=== PATIENT | male | born 1940 | race Caucasian/White ===

== ENCOUNTER 2020-02-11 11:01 | Inpatient (IN) | payer MEDICARE, OTHER ==
[~2020-02-11] VITALS: Ht 182.9 cm; Wt 132.0 kg
[~2020-02-11 11:01] MED LIST: AMIN30LI PO; ASCO500T21 PO; BLOO-367 IN; CRAN405C PO; DILT60TA19 PO; DOCU-270 PO; ESCI10TA PO; FERR325T28 PO; FLUT16SP2 NS; INSU100I4 SQ; MEMA10TA PO; METO100T PO; MULT1CAP34 PO; OMEP20CA15 PO; OXYB5TAB PO; POTA10TA11 PO; SIMV40TA2 PO; [UNRECOGNIZED DRUG - CODE] PO
--- NOTE | 2020-02-11 11:40 | NUR ---
JAMEE FROM [facility]. TO ER BED 7. PT IS LETHARGIC, RESPONSIVE TO PAIN STIMULI. PT GOES BACK TO SLEEP AFTER WAKING UP. BROUGHT IN FOR ALTERED MENTAL STATUS AND DESAT. UPON RECEIVING PT, HE WAS ALREADY SATTING @ 100% ON A NON REBREATHER MASK. PT WAS TITRATED DOWN TO A SIMPLE FACE MASK @ 8LPM TOLERATING WELL. WAS AT THE BEDSIDE FOR EVAL. ORDERS RECEIVED NOTED AND CARRIED OUT. IV LINE ESTABLISHED ON RFA 18G. BLOOD DRAWN AND SENT TO LAB
--- NOTE | 2020-02-11 11:45 | NUR ---
XRAY AT BEDSIDE
[2020-02-11 12:02] LABS: BASOPHILS % (AUTO) 0.4 % (0.0-2.0); EOSINOPHILS % (AUTO) 0.3 % (0.0-6.0); HEMATOCRIT 39 % (39-51); LYMPHOCYTES # (AUTO) 0.6 /CMM (0.8-4.8); LYMPHOCYTES % (AUTO) 8.3 % (20.0-44.0); MEAN CORPUSCULAR HGB CONC 31 g/dl (31.0-36.0); MEAN CORPUSCULAR VOLUME 102 fL (80-96); MONOCYTES # (AUTO) 0.6 /CMM (0.1-1.30); MONOCYTES % (AUTO) 8.3 % (2.0-12.0); NEUTROPHILS # (AUTO) 5.5 /CMM (1.8-8.9); NEUTROPHILS % (AUTO) 82.7 % (43.0-81.0); PLATELET COUNT (AUTO) 165 /CMM (150-450); RED BLOOD CELL COUNT(AUTO) 3.86 MIL/uL (4.5-6.0); WHITE BLOOD COUNT (AUTO) 6.7 K/uL (4.3-11.0)
[2020-02-11 12:16] LABS: CARBON DIOXIDE 33 mmol/L (21-32); CHLORIDE 104 mmol/L (98-107); CREATININE 1.7 mg/dL (0.6-1.3); GLUCOSE 181 mg/dL (74-106); POTASSIUM 4.4 mmol/L (3.5-5.1); SODIUM SERUM 142 mmol/L (136-145); UREA NITROGEN, BLOOD 50 mg/dL (7-18)
[2020-02-11 12:30] LABS: ALANINE AMINOTRANSFERASE 14 U/L (12-78); ALKALINE PHOSPHATASE 62 U/L (46-116); ASPARTATE AMINOTRANSFERASE 16 U/L (15-37); B-TYPE NATRIURETIC PEPTIDE 4845 PG/ML (0-125); BILIRUBIN,TOTAL 0.2 mg/dL (0.2-1.0); TOTAL PROTEIN, SERUM 7.4 g/dL (6.4-8.2)
--- NOTE | 2020-02-11 12:30 | NUR ---
02 TITRATED TO EFFECT. PT IN ON VIA NC @ 4LPM. SATTING 99%. TOLERATING WELL W/O ANY RESP DISTRESS
[2020-02-11] MEDS ORDERED: FUROSEMIDE 40 MG/4 ML VIAL ONE ×2 (12:43→20:01)
[2020-02-11] MEDS ORDERED: FUROSEMIDE 40 MG/4 ML VIAL IV ONE ×2 (13:00→17:00)
[2020-02-11 13:26] LABS: LYMPHOCYTES % (MANUAL) 10 % (16-48); NEUTROPHILS % (MANUAL) 84 (42-76)
[2020-02-11 13:27] LABS: MONOCYTES % (MANUAL) 6 % (0-11.0)
[2020-02-11] MEDS ORDERED: Z GUARD REMEDY 2 OZ OINT TP PRN (14:30)
[2020-02-11] MEDS ORDERED: HYDROMORPHONE INJ 2 MG/ML DISP.SYRIN IV PRN (14:30)
[2020-02-11] MEDS ORDERED: IPRATROPIUM NEB FS 0.5 MG/2.5 ML AMPUL.NEB NEB PRN (14:30)
[2020-02-11] MEDS ORDERED: DEXTROSE 50%-WATER 50 ML DISP.SYRIN IV PRN (14:30)
[2020-02-11] MEDS ORDERED: ONDANSETRON HCL/PF 4 MG/2 ML VIAL IVP PRN (14:30)
[2020-02-11] MEDS ORDERED: ALBUTEROL FS 2.5 MG/3 ML VIAL.NEB NEB PRN (14:30)
[2020-02-11] MEDS ORDERED: ACETAMINOPHEN 325 MG TABLET PO PRN (14:30)
--- NOTE | 2020-02-11 15:27 | NUR ---
OUMAR EVANS CALLED STILL NO AVAILABLE BEDS. WILL CALL BACK.
--- NOTE | 2020-02-11 16:50 | NUR ---
PT IS AWAKE AND ALERT. VERBALLY RESPONSIVE.
--- NOTE | 2020-02-11 17:10 | NUR ---
ROOM GIVEN 200 TELE
--- NOTE | 2020-02-11 17:26 | NUR ---
REPORT GIVEN TO JOLENE JONES FOR DENIS
--- NOTE | 2020-02-11 18:20 | NUR ---
PT TRANSPORTED TO UNIT ON [facility] WITH EMT AND RN AT BEDSIDE W/ ACLS PROTOCOL. NAD NOTED DURING TRANSPORT.
[2020-02-11 18:35] VITALS: BP 126/69
--- NOTE | 2020-02-11 18:35 | NUR ---
REAL ESTATE LOAN OFFICER NOTES RECEIVED PATIENT FROM EMERGENCY ROOM WITH STABLE VITAL SIGNS. REPORT GIVEN BY [place] FERNÁNDEZ . ALERT ORIENTED X 3. NO ACUTE DISTRESS NOTED. BREATHING UNLABORED. IV ACCESS PATENT AND INTACT, NO REDNESS, NO SWELLING NOTED. ORIENTED TO THE ROOM. NEEDS ATTENDED. SAFETY MEASURES IN PLACE. CALL LIGHT WITHIN REACH. WILL CONTINUE TO MONITOR ACCORDINGLY.PATIENT FOR ADMISSION, WILL ENDORSE TO NIGHT NURSE FOR CONTINUITY OF CARE AND ADMISSION.
[2020-02-11] MEDS: BLOOD SUGAR DIAGNOSTIC 1 EACH STRIP IN SCH ×2 (18:45→22:00)
--- NOTE | 2020-02-11 19:00 | NUR ---
GROCERY CLERK STOCKING NOTES PATIENT IN STABLE CONDITION, ENDORSE TO NIGHT NURSE FOR CONTINUITY OF CARE AND MEDICATION ADMINISTRATION
[2020-02-11] MEDS: DOCUSATE SODIUM 100 MG CAPSULE PO SCH (19:55)
[2020-02-11] MEDS: OXYBUTYNIN CHLORIDE 5 MG TABLET PO SCH (19:55)
[2020-02-11 20:00] VITALS: BP 139/79
--- NOTE | 2020-02-11 20:00 | NUR ---
SLAB POLISHER NOTE URINE EVALUATION INCONTINENCE CARE GIVEN MODERATED AMOUNT OF WET PAD CHANGED. WEIGHT BEFORE WAS 311 LBS AND AFTER 309.11 LBS. LASIX 40 MG IVP GIVEN SCHEDULED VSS PT UNABLE TO USE URINAL. CONTINUE TO MONITOR OUT PUT.
--- NOTE | 2020-02-11 20:02 | NUR ---
DIESEL MECHANIC CONSTRUCTION NOTE ADMITTED PT WHO CAME FORM ER AT 1830. A/O X 2, NO SOB, NO DISTRESS OR DISCOMFORT NOTED DENIES PAIN. ON TELE UNCONTROLLED A FIB HR 130'S. RFA SL #20 SL INTACT AND PATENT. SKIN ASSESSMENT DONE. PICTURES TAKEN AND PLACE THEM IN THE CHART. PT ON 4L VIA N/C O2 SAT 96%. PT IS INCONTINENT. WOUND CONSULT TRIGGERED. HOB ELEVATED. KEPT HIM DRY AND CLEAN. SIDE RAILS UP X 2 AND CALL LIGHT WITHIN REACH. VSS CONTINUE TO MONITOR HIM.
[2020-02-11] MEDS: PROSOURCE / PROSTAT (PYXIS) 30 ML UDC PO SCH (20:03)
[2020-02-11] MEDS: METOPROLOL TARTRATE 50 MG TABLET PO SCH (20:05)
[2020-02-11] MEDS: HEPARIN SODIUM, PORCINE 5000 UNITS/1 ML VIAL SQ SCH (20:06)
[2020-02-11] MEDS ORDERED: INSULIN ASPART/LISPRO 100 UNIT/ML CARTRIDGE SQ SCH (22:00)
[2020-02-11] MEDS ORDERED: SIMVASTATIN 20 MG TABLET PO SCH (22:00)
[2020-02-11] MEDS: ATORVASTATIN 10 MG TABLET PO SCH (23:13)
[2020-02-11] MEDS: DILTIAZEM HCL 30 MG TABLET PO SCH (23:15)
[2020-02-11] MEDS: INSULIN REGULAR, HUMAN 100 UNIT/ML 3 ML VIAL SQ PRN (23:32)
[2020-02-12] VITALS: BP 141/80
--- NOTE | 2020-02-12 00:30 | NUR ---
FOOD AND BEVERAGE ASSOCIATE NOTE URINE OUTPUT PT INCONTINENENCE CARE GIVEN. PT URINATED LARGE AMOUNT THREE PADS WERE SOAKING WET. ALSO BED SHEETS. CHANGED ALL THE LINENS.
[2020-02-12 04:00] VITALS: BP 138/70
--- NOTE | 2020-02-12 04:00 | NUR ---
RN CARDIAC CATH NOTE URINE INCONTINENCE CARE PROVIDED. MEDIUM AMOUNT OF URINE ON PAD NOTED. ON TELE A FIB HR 90 CONTROLLED.
[2020-02-12] MEDS: DILTIAZEM HCL 30 MG TABLET PO SCH (05:42)
[2020-02-12] MEDS: BLOOD SUGAR DIAGNOSTIC 1 EACH STRIP IN SCH ×4 (06:08→22:08)
[2020-02-12] MEDS: INSULIN REGULAR, HUMAN 100 UNIT/ML 3 ML VIAL SQ PRN ×3 (06:12→22:06)
--- NOTE | 2020-02-12 06:24 | NUR ---
DUST COLLECTOR OPERATOR NOTE PT IN DISTRESS OR DISCOMFORT NOTED. DENIES PAIN. ON TELE REMAIN A FIB CONTROLLED HR 88. SL IN RFA #20 INTACT AND PATENT. KEPT HIM DRY AND CLEAN. REPOSITION HIM Q2H, ALL NEEDS ATTENDED. WILL ENDORSE TO DAY SHIFT NURSE FOR CONTINUE TO CARE. Addendum: 02/12/20 at 2148 by ZAIN NAVAS RN PT IN NO DISTRESS DISCOMFORT NOTED.
[2020-02-12 06:50] LABS: BASOPHILS % (AUTO) 0.4 % (0.0-2.0); EOSINOPHILS % (AUTO) 1.3 % (0.0-6.0); HEMATOCRIT 39 % (39-51); HEMOGLOBIN 12.1 g/dL (13.5-17.5); LYMPHOCYTES # (AUTO) 0.7 /CMM (0.8-4.8); LYMPHOCYTES % (AUTO) 11.9 % (20.0-44.0); MEAN CORPUSCULAR HGB CONC 31 g/dl (31.0-36.0); MEAN CORPUSCULAR VOLUME 100 fL (80-96); MONOCYTES # (AUTO) 0.7 /CMM (0.1-1.30); MONOCYTES % (AUTO) 12.1 % (2.0-12.0); NEUTROPHILS # (AUTO) 4.2 /CMM (1.8-8.9); NEUTROPHILS % (AUTO) 74.3 % (43.0-81.0); PLATELET COUNT (AUTO) 177 /CMM (150-450); RED BLOOD CELL COUNT(AUTO) 3.88 MIL/uL (4.5-6.0); WHITE BLOOD COUNT (AUTO) 5.6 K/uL (4.3-11.0)
[2020-02-12 07:32] LABS: ALANINE AMINOTRANSFERASE 11 U/L (12-78); ALKALINE PHOSPHATASE 61 U/L (46-116); ASPARTATE AMINOTRANSFERASE 11 U/L (15-37); BILIRUBIN,TOTAL 0.2 mg/dL (0.2-1.0); CHLORIDE 104 mmol/L (98-107); CREATININE 1.6 mg/dL (0.6-1.3); GLUCOSE 134 mg/dL (74-106); MAGNESIUM 2.4 mg/dL (1.8-2.4); POTASSIUM 3.8 mmol/L (3.5-5.1); SODIUM SERUM 144 mmol/L (136-145); TOTAL PROTEIN, SERUM 7.3 g/dL (6.4-8.2); UREA NITROGEN, BLOOD 51 mg/dL (7-18)
[2020-02-12 07:35] LABS: CHOLESTEROL 146 mg/dL (<200); HDL CHOLESTEROL 45 mg/dL (40-60); LDL 79 mg/dL (0-99); TRIGLYCERIDES 108 mg/dL (30-150)
[2020-02-12 07:37] LABS: IRON, SERUM 53 ug/dl (50-175); TOTAL IRON BINDING CAPACITY 215 ug/dl (250-450)
--- NOTE | 2020-02-12 07:37 | NUR ---
HEALTH COACH OPENING NOTES RECEIVED PATIENT IN BED, ASLEEP. PATIENT ON OXYGEN THERAPY AT THIS TIME AT 4LPM VIA NASAL CANULA; BREATHING EVEN AND UNLABORED; NO SOB NOTICED AT THIS TIME. NOS/S OF PAIN SUCH FACIAL GRIMACING, GUARDING OR MOANING. RFA G#20 PRESENT AND INTACT. SAFETY PRECAUTIONS IN PLACE; BED IN LOW POSITION AND LOCKED, RAILS UP X2, CALL LIGHT WITHIN REACH. WILL CONTINUE TO MONITOR PATIENT.
[2020-02-12 07:39] LABS: CARBON DIOXIDE 32 mmol/L (21-32)
[2020-02-12 08:00] VITALS: BP 131/70
[2020-02-12] MEDS: DOCUSATE SODIUM 100 MG CAPSULE PO SCH ×2 (08:37→17:41)
[2020-02-12] MEDS: OXYBUTYNIN CHLORIDE 5 MG TABLET PO SCH (08:37)
[2020-02-12] MEDS: MULTIVITAMINS,THERAGRAN 1 UDTAB TABLET PO SCH (08:37)
[2020-02-12] MEDS: PANTOPRAZOLE 40 MG TABLET.DR PO SCH (08:38)
[2020-02-12] MEDS: ASCORBIC ACID 500 MG TABLET PO SCH (08:38)
[2020-02-12] MEDS: METOPROLOL TARTRATE 50 MG TABLET PO SCH ×2 (08:38→22:08)
[2020-02-12] MEDS: HEPARIN SODIUM, PORCINE 5000 UNITS/1 ML VIAL SQ SCH (08:39)
[2020-02-12] MEDS: PROSOURCE / PROSTAT (PYXIS) 30 ML UDC PO SCH ×3 (08:40→17:41)
[2020-02-12] MEDS: FERROUS SULFATE (325 MG) 325 MG/TAB TABLET PO SCH (08:41)
[2020-02-12] MEDS ORDERED: HYOSCYAMINE PO SCH (09:00)
[2020-02-12] MEDS ORDERED: METHENAMINE PO SCH (09:00)
[2020-02-12] MEDS ORDERED: PHENYL SALICYLATE PO SCH (09:00)
[2020-02-12] MEDS ORDERED: ESCITALOPRAM OXALATE (10 MG) 10 MG TABLET PO SCH (09:00)
[2020-02-12] MEDS ORDERED: MEMANTINE HCL 5 MG TABLET PO SCH (09:00)
[2020-02-12] MEDS ORDERED: [UNRECOGNIZED DRUG - OTHER] PO SCH (09:00)
[2020-02-12] MEDS ORDERED: SODIUM PHOSPHATE PO SCH (09:00)
--- NOTE | 2020-02-12 09:27 | NUR ---
WOUND CARE CONSULT: REVIEWED CHART, NURSING DOCUMENTATION AND PHOTOS WHICH INDICATE RASHES TO BUTTOCKS AND ABDOMINAL/GROIN FOLDS AND WOUND TO LEFT LOWER LEG, PRESENT ON ADMISSION. RECOMMEND DPM CONSULT. RECOMMENDATIONS MADE FOR SKIN PROTECTION. DISCUSSED WITH NURSING STAFF. PT [facility] B[facility]. IN AGREEMENT WITH PLAN OF CARE. Addendum: 02/12/20 at 0932 by REX GONG WNDNU RECOMMEND SURGICAL AND DPM CONSULTS. DR HOFF AND DR PERALTA NOTIFIED OF CONSULT REQUESTS.
[2020-02-12] MEDS ORDERED: ZINC1CAP3 PO (09:47)
[2020-02-12] MEDS ORDERED: ACET325T53 PO (09:47)
[2020-02-12] MEDS ORDERED: DILT240C88 PO (09:47)
[2020-02-12] MEDS ORDERED: TEMA30CA PO (09:47)
[2020-02-12] MEDS ORDERED: TRAM50TA2 PO (09:47)
[2020-02-12] MEDS ORDERED: POLY17PO4 PO (09:47)
[2020-02-12] MEDS ORDERED: OXYB10TA30 PO (09:47)
[2020-02-12] MEDS ORDERED: CYCL30DR EACHEYE (09:47)
[2020-02-12] MEDS ORDERED: VITA400C71 PO (09:47)
[2020-02-12] MEDS ORDERED: ACET250T3 PO (09:47)
[2020-02-12] MEDS ORDERED: DICL100G16 TP (09:47)
[2020-02-12] MEDS ORDERED: SENN-261 PO (09:47)
[2020-02-12] MEDS ORDERED: ACET-73 PO ×2 (09:47)
[2020-02-12] MEDS ORDERED: CALC-883 PO (10:05)
[2020-02-12] MEDS ORDERED: GEMF600T5 PO (10:05)
[2020-02-12] MEDS ORDERED: LACT1CAP89 PO (10:05)
[2020-02-12] MEDS ORDERED: METO-295 PO (10:05)
[2020-02-12] MEDS ORDERED: ALBU2.5V38 IH (10:05)
[2020-02-12] MEDS ORDERED: BUME1TAB9 PO (10:05)
[2020-02-12] MEDS ORDERED: LEVO50TA8 PO (10:05)
[2020-02-12] MEDS ORDERED: MELA3TAB41 PO (10:05)
[2020-02-12] MEDS ORDERED: BIOTIN PO (10:05)
[2020-02-12] MEDS ORDERED: GUAIFENESIN PO (10:05)
[2020-02-12] MEDS ORDERED: INSU100V42 (10:05)
[2020-02-12] MEDS ORDERED: OMEG1CAP PO (10:05)
[2020-02-12] MEDS ORDERED: KETO5DRO83 EACHEYE (10:05)
[2020-02-12] MEDS ORDERED: MAGN296S72 PO (10:05)
[2020-02-12 12:00] VITALS: BP 143/72
--- NOTE | 2020-02-12 12:08 | NUR ---
TRANSPORTATION EQUIPMENT PAINTER NOTES NO INSULIN COVERAGE GIVEN. PATIENT REFUSES LUNCH. WILL REASSESS LATER.
--- NOTE | 2020-02-12 12:45 | NUR ---
LEASE EXAMINER NOTES RECEIVED CALL FROM LAB REGARDING COVID-19. PATIENT IS NEGATIVE. MD NOTIFIED.
--- NOTE | 2020-02-12 15:09 | NUR ---
TRANSIT OPERATIONS SUPERVISORMEDICAL REIMBURSEMENT MANAGER NOTES PER MD OK TO TRANSFER TO MS3. PATIENT TRANSFERRED AND REPORT GIVEN TO JOLENE SALAS
--- NOTE | 2020-02-12 15:10 | NUR ---
PIPE LINE MAINTENANCE SUPERVISOR NOTES PATIENT RECEIVED FROM DLAILA FERNÁNDEZ FROM MED SURG 2, TRANSFERRED VIA BED AND ACLS PROTOCOLS. PATIENT ALERT AND ORIENTED X 1-2. ON NASAL CANNULA, 4 LITERS WITH HUMIDIFIER. ON WORK MANAGER, SINUS RHYTHM 90'S. SAFETY PRECAUTIONS IMPLEMENTED WITH BED LOCKED, BED IN THE LOWEST POSITION, BILATERAL SIDE RAILS UP, BED ALARM ON, AND CALL LIGHT WITHIN EASY REACH OF THE PATIENT. WILL CONTINUE PLAN OF CARE AND CONTINUE TO MONITOR PATIENT.
[2020-02-12 16:25] VITALS: BP 129/70
--- NOTE | 2020-02-12 16:45 | NUR ---
OUTDOOR ADVENTURE GUIDES NOTES PATIENT POSITIVE FOR DVT ON RIGHT COMMON FEMORAL AND PROXIMAL RIGHT SUPERFICIAL FEMORAL VEINS, INFORMED CAMMIE, HOSPITALIST, ORDERED XARELTO 15 mg PO, BID FOR 21 DAYS. ALSO INFORMED HOSPITALIST, MRSA IN NARES, ORDERED BACTROBAN, BID. WILL CARRY OUT ORDERS AND CONTINUE TO MONITOR PATIENT.
[2020-02-12] MEDS ORDERED: RIVAROXABAN 15 MG TABLET PO SCH (17:00)
[2020-02-12] MEDS: APIXABAN 5 MG TABLET PO SCH (18:47)
--- NOTE | 2020-02-12 19:10 | NUR ---
LAMINATING MACHINE OPERATOR NOTES PATIENT ALERT AND ORIENTED X 1-2. ON NASAL CANNULA, 4 LITERS WITH HUMIDIFIER. ON LAUNDRY OPERATOR FINISHING, A-FIB 100. PATIENT IV ACCESS INTACT AND PATENT SALINE LOCK. PATIENT PRESENTING WITH NO PAIN OR DISCOMFORT AT THIS TIME. MET ALL OF PATIENT'S NEEDS. SKIN KEPT CLEAN, DRY TO TOUCH. SAFETY PRECAUTIONS IMPLEMENTED WITH BED LOCKED, BED IN THE LOWEST POSITION, BILATERAL SIDE RAILS UP, BED ALARM ON, AND CALL LIGHT WITHIN EASY REACH OF THE PATIENT. WILL ENDORSE PLAN OF CARE TO UPCOMING RN.
[2020-02-12 20:36] VITALS: BP 130/81
[2020-02-12] MEDS: ATORVASTATIN 10 MG TABLET PO SCH (22:08)
[2020-02-12] MEDS: MUPIROCIN OINT 2% 22 GM TUBE NS SCH (22:09)
[2020-02-13] VITALS: BP 127/72
[2020-02-13 04:20] VITALS: BP 138/69
[2020-02-13 06:23] LABS: BASOPHILS % (AUTO) 0.4 % (0.0-2.0); EOSINOPHILS % (AUTO) 2.1 % (0.0-6.0); HEMATOCRIT 37 % (39-51); HEMOGLOBIN 11.8 g/dL (13.5-17.5); LYMPHOCYTES # (AUTO) 0.8 /CMM (0.8-4.8); LYMPHOCYTES % (AUTO) 15.3 % (20.0-44.0); MEAN CORPUSCULAR HGB CONC 32 g/dl (31.0-36.0); MEAN CORPUSCULAR VOLUME 99 fL (80-96); MONOCYTES # (AUTO) 0.6 /CMM (0.1-1.30); MONOCYTES % (AUTO) 11.5 % (2.0-12.0); NEUTROPHILS # (AUTO) 3.6 /CMM (1.8-8.9); NEUTROPHILS % (AUTO) 70.7 % (43.0-81.0); PLATELET COUNT (AUTO) 168 /CMM (150-450); RED BLOOD CELL COUNT(AUTO) 3.79 MIL/uL (4.5-6.0); WHITE BLOOD COUNT (AUTO) 5.1 K/uL (4.3-11.0)
[2020-02-13] MEDS: INSULIN REGULAR, HUMAN 100 UNIT/ML 3 ML VIAL SQ PRN ×2 (06:57→22:04)
[2020-02-13 07:01] LABS: CALCIUM, SERUM 9.6 mg/dL (8.5-10.1); CARBON DIOXIDE 36 mmol/L (21-32); CHLORIDE 103 mmol/L (98-107); CREATININE 1.5 mg/dL (0.6-1.3); GLUCOSE 173 mg/dL (74-106); POTASSIUM 3.8 mmol/L (3.5-5.1); SODIUM SERUM 142 mmol/L (136-145); UREA NITROGEN, BLOOD 60 mg/dL (7-18)
--- NOTE | 2020-02-13 07:30 | NUR ---
TRANSACTION PROCESSOR CLOSING NOTES PATIENT ALERT AND ORIENTED X 1-2 LETHARGIC. ON NASAL CANNULA, 4 LITERS WITH HUMIDIFIER. ON RN NEONATAL ICU, A-FIB 100S. PATIENT IV ACCESS INTACT AND PATENT SALINE LOCK. SAFETY PRECAUTIONS IN PLACE WITH BED LOCKED, BED IN THE LOWEST POSITION, BILATERAL SIDE RAILS UP, BED ALARM ON, AND CALL LIGHT WITHIN EASY REACH OF THE PATIENT. WILL ENDORSE PLAN OF CARE TO UPCOMING RN.
[2020-02-13] MEDS: BLOOD SUGAR DIAGNOSTIC 1 EACH STRIP IN SCH ×4 (07:56→21:50)
[2020-02-13 08:23] VITALS: BP 164/86
[2020-02-13] MEDS: APIXABAN 5 MG TABLET PO SCH ×2 (09:00→17:00)
[2020-02-13] MEDS: ASCORBIC ACID 500 MG TABLET PO SCH (09:00)
[2020-02-13] MEDS: MUPIROCIN OINT 2% 22 GM TUBE NS SCH ×2 (09:00→22:16)
[2020-02-13] MEDS: PROSOURCE / PROSTAT (PYXIS) 30 ML UDC PO SCH ×3 (09:00→17:19)
[2020-02-13] MEDS: METOPROLOL TARTRATE 50 MG TABLET PO SCH ×2 (09:00→21:50)
[2020-02-13] MEDS: PANTOPRAZOLE 40 MG TABLET.DR PO SCH (09:00)
[2020-02-13] MEDS: MULTIVITAMINS,THERAGRAN 1 UDTAB TABLET PO SCH (09:00)
[2020-02-13] MEDS: HYDROGEL DRESSING 90 GM TUBE TP SCH (09:00)
[2020-02-13] MEDS: FUROSEMIDE 40 MG/4 ML VIAL IV SCH ×2 (09:00→17:19)
[2020-02-13] MEDS: FERROUS SULFATE (325 MG) 325 MG/TAB TABLET PO SCH (09:00)
[2020-02-13] MEDS: DOCUSATE SODIUM 100 MG CAPSULE PO SCH ×2 (09:00→17:19)
--- NOTE | 2020-02-13 10:41 | NUR ---
PATIENT IS IN BED RESTING. PATIENT IS ALERT AND ORIENTED X2. PATIENT DOES NOT DISPLAY SIGNS AND SYMPTOMS OF PAIN, DISTRESS, OR SHORTNESS OF BREATH. PATIENT IS ON 4L OF O2 VIA NASAL CANNULA. AM IN CARE NEEDS MET. BED IN LOW POSITION. CALL LIGHT IN REACH. WILL CONTINUE TO MONITOR PATIENT THROUGHOUT SHIFT.
[2020-02-13 15:41] VITALS: BP 143/77
--- NOTE | 2020-02-13 18:45 | NUR ---
Patient is in bed sleeping. All care needs met. No signs of pain, distress, or shortness of breath. Bed in low position. Call light in reach. Will give report to night nurse.
--- NOTE | 2020-02-13 20:05 | NUR ---
per report pt was coughing with thin liquids speech eval ordered per protocol to evaluate patient will cont standard aspiration precautions; will thicken thin liquids in meantiime as pt tolerates.
[2020-02-13 20:45] VITALS: BP 149/86
[2020-02-13 20:48] VITALS: BP 149/86
[2020-02-13] MEDS: ATORVASTATIN 10 MG TABLET PO SCH (21:49)
--- NOTE | 2020-02-13 22:20 | NUR ---
PROCEDURE CONSENT OBTAINED FOR SERIAL DEBRIDEMENT OF LEFT LEG FROM DAUGHTER. PROCEDURE CONSENT OBTAINED FROM DAUGHTER LONG CONTRERAS FOR SERIAL EXCISIONAL DEBRIDEMENT OF LEFT LOWER LEG WOUND WITH CONNIE UMANZOR. PLACED ON THE CHART. TELEPHONE CONSENT WITNESSED WITH MYSELF AND JENNA FERNÁNDEZ.
[2020-02-14 00:16] VITALS: BP 137/73
[2020-02-14 04:19] VITALS: BP 149/83
[2020-02-14] MEDS: BLOOD SUGAR DIAGNOSTIC 1 EACH STRIP IN SCH ×4 (06:38→21:53)
[2020-02-14] MEDS: INSULIN REGULAR, HUMAN 100 UNIT/ML 3 ML VIAL SQ PRN ×3 (06:40→21:55)
[2020-02-14 06:54] LABS: BASOPHILS % (AUTO) 0.2 % (0.0-2.0); EOSINOPHILS % (AUTO) 2.4 % (0.0-6.0); HEMATOCRIT 39 % (39-51); HEMOGLOBIN 12.3 g/dL (13.5-17.5); LYMPHOCYTES # (AUTO) 0.6 /CMM (0.8-4.8); LYMPHOCYTES % (AUTO) 10.9 % (20.0-44.0); MEAN CORPUSCULAR HGB CONC 32 g/dl (31.0-36.0); MEAN CORPUSCULAR VOLUME 98 fL (80-96); MONOCYTES # (AUTO) 0.8 /CMM (0.1-1.30); MONOCYTES % (AUTO) 14.8 % (2.0-12.0); NEUTROPHILS % (AUTO) 71.7 % (43.0-81.0); PLATELET COUNT (AUTO) 177 /CMM (150-450); RED BLOOD CELL COUNT(AUTO) 3.96 MIL/uL (4.5-6.0); WHITE BLOOD COUNT (AUTO) 5.6 K/uL (4.3-11.0)
[2020-02-14 07:10] LABS: B-TYPE NATRIURETIC PEPTIDE 8779 PG/ML (0-125); CARBON DIOXIDE 38 mmol/L (21-32); CHLORIDE 102 mmol/L (98-107); CREATININE 1.6 mg/dL (0.6-1.3); GLUCOSE 186 mg/dL (74-106); MAGNESIUM 2.3 mg/dL (1.8-2.4); PHOSPHORUS 3.7 mg/dL (2.5-4.9); POTASSIUM 3.7 mmol/L (3.5-5.1); SODIUM SERUM 143 mmol/L (136-145); UREA NITROGEN, BLOOD 64 mg/dL (7-18)
--- NOTE | 2020-02-14 07:23 | NUR ---
closing note pm noc nurse Patient is in bed with eyes closed. in No signs of pain, distress, or shortness of breath. Bed in low position. Call light in reach. will endorse to oncoming shift. plan is to have serrial debridement of left leg wound with dr. evans. pt still is lethargic when interacting. alert and oriented x2. call ligh in place bed down locked srx3 bed alarm active. pt had 2 voids with 1 small bm.
--- NOTE | 2020-02-14 07:30 | NUR ---
MS/RN OPENING NOTE PATIENT RECEIVED FROM PLAYGROUND MONITOR PATIENT IS A/O X2 LAYING IN BED. PATIENT VS WITHIN NORMAL RANGE. PATIENT IS ON 4L/MIN OXYGEN VIA NASAL CANNULA TOLERATING WELL. NO ACUTE DISTRESS NOTED. PATIENT VERBALIZES 0/10 PAIN. PATIENT WILL BE TURNED AND REPOSITIONED EVERY 2-3 HOURS THROUGHOUT THE DAY. SAFETY MEASURES IN PLACE, BED IN LOWEST POSITION/LOCKED, CALL LIGHT WITHIN REACH. WILL CONTINUE TO MONITOR AND ENSURE SAFETY.
[2020-02-14 08:00] VITALS: BP 149/74
[2020-02-14] MEDS: FUROSEMIDE 40 MG/4 ML VIAL IV SCH ×2 (08:48→16:37)
[2020-02-14] MEDS: DOCUSATE SODIUM 100 MG CAPSULE PO SCH ×2 (08:48→16:37)
[2020-02-14] MEDS: ASCORBIC ACID 500 MG TABLET PO SCH (08:49)
[2020-02-14] MEDS: MULTIVITAMINS,THERAGRAN 1 UDTAB TABLET PO SCH (08:50)
[2020-02-14] MEDS: PANTOPRAZOLE 40 MG TABLET.DR PO SCH (08:50)
[2020-02-14] MEDS: METOPROLOL TARTRATE 50 MG TABLET PO SCH ×2 (08:50→20:37)
[2020-02-14] MEDS: FERROUS SULFATE (325 MG) 325 MG/TAB TABLET PO SCH (08:50)
[2020-02-14] MEDS: HYDROGEL DRESSING 90 GM TUBE TP SCH (08:53)
[2020-02-14] MEDS: PROSOURCE / PROSTAT (PYXIS) 30 ML UDC PO SCH ×3 (08:53→16:39)
[2020-02-14] MEDS: MUPIROCIN OINT 2% 22 GM TUBE NS SCH ×2 (08:54→20:39)
[2020-02-14] MEDS: APIXABAN 5 MG TABLET PO SCH ×2 (08:55→16:38)
--- NOTE | 2020-02-14 10:49 | NUR ---
MS/RN S/B DR. MASSEY S/B DR. SPIVEY AWAITING ORDERS.
--- NOTE | 2020-02-14 11:30 | NUR ---
MS/RN BLOOD SUGAR BLOOD SUGAR 157, NO INSULIN COVERAGE GIVEN PATIENT HAS NOT EATING.
--- NOTE | 2020-02-14 11:36 | NUR ---
MS/RN S/B DR. PERALTA S/B DR. PERALTA. DID WOUND DEBRIDEMENT OF LLE. COVERED WITH HYDROGEL AND MEPILEX.
[2020-02-14 12:00] VITALS: BP 125/78
[2020-02-14 16:00] VITALS: BP 124/63
--- NOTE | 2020-02-14 19:10 | NUR ---
MS/RN CLOSING NOTE PATIENT IS A/O X2. VS WITHIN NORMAL RANGE. PATIENT ON 4L OF OXYGEN VIA NASAL CANNULA, TOLERATING WELL. NO ACUTE DISTRESS NOTED. ALL NEEDS MET DURING THE DAY.SAFETY PRECAUTIONS IN PLACE. BED IN LOWEST POSITION/LOCKED, CALL LIGHT WITHIN REACH. WILL ENDORSE TO PRESCHOOL TEACHER AIDE NURSE.
--- NOTE | 2020-02-14 19:45 | NUR ---
MS RN NOTES RECEIVED PATIENT ALERT ORIENTED X2. BREATHING EVEN AND UNLABORED PATIENT ON 4L OF OXYGEN VIA NASAL CANNULA, TOLERATING WELL. NO SIGNS OF ACUTE RESPIRATORY DISTRESS NOTED.SAFETY PRECAUTIONS IN PLACE. BED IN LOWEST POSITION/LOCKED, CALL LIGHT WITHIN EASY REACH. ALL NEEDS ANTICIPATED. WILL CONTINUE TO MONITOR ACCORDINGLY.
[2020-02-14 20:15] VITALS: BP 112/67
[2020-02-14] MEDS: ATORVASTATIN 10 MG TABLET PO SCH (22:19)
[2020-02-15] VITALS: BP 118/64
[2020-02-15 04:00] VITALS: BP 132/74
--- NOTE | 2020-02-15 06:26 | NUR ---
ACCESS SPECIALIST CLOSING NOTES ALL NEEDS ATTENDED AND ME. PATIENT ALERT AND ORIENTED X 1-2 LETHARGIC. ON NASAL CANNULA, 4 LITERS WITH HUMIDIFIER. ON GAUGE MACHINE OPERATOR, A-FIB 107. IV ACCESS INTACT AND PATENT SALINE LOCK. SAFETY MEASURES IN PLACE WITH BED LOCKED, BED IN THE LOWEST POSITION, BILATERAL SIDE RAILS UP, BED ALARM ON, AND CALL LIGHT WITHIN EASY REACH OF THE PATIENT. ASPIRATION PRECAUTION EMPHASIZED.WILL ENDORSE TO AM NURSE FOR CONTINUITY OF CARE.
[2020-02-15 06:43] LABS: CHLORIDE 101 mmol/L (98-107); CREATININE 1.5 mg/dL (0.6-1.3); GLUCOSE 160 mg/dL (74-106); POTASSIUM 3.6 mmol/L (3.5-5.1); SODIUM SERUM 145 mmol/L (136-145); UREA NITROGEN, BLOOD 62 mg/dL (7-18)
[2020-02-15] MEDS: BLOOD SUGAR DIAGNOSTIC 1 EACH STRIP IN SCH ×4 (06:44→21:24)
[2020-02-15] MEDS: INSULIN REGULAR, HUMAN 100 UNIT/ML 3 ML VIAL SQ PRN ×4 (06:45→21:43)
[2020-02-15 06:46] LABS: CARBON DIOXIDE 43 mmol/L (21-32)
--- NOTE | 2020-02-15 07:01 | NUR ---
RN NOTES CO2 RESULT IS 43 PER ALEXANDER CALDERON MD. JERILYN FOREMAN NP. AWAITING FOR ANY ORDERS. WILL ENDORSE TO AM NURSE.
--- NOTE | 2020-02-15 07:31 | NUR ---
CANT GANG SAWYER OPENING NOTE PATIENT IN BED RESTING COMFORTABLY. PATIENT IN NO ACUTE DISTRESS. NO SOB NOTED. PATIENT BREATHING IS EVEN AND UNLABORED. PATIENT ON CARDIAC MONITORING READING AFIB HR 110. PATIENT BED ALARM IS ON. SAFETY PRECAUTIONS IN PLACE. PATIENT BED IS LOCKED AND IN LOWEST POSITION. CALL LIGHT WITHIN REACH. WILL CONTINUE TO MONITOR.
[2020-02-15 08:00] VITALS: BP 126/75
[2020-02-15] MEDS: APIXABAN 5 MG TABLET PO SCH ×2 (08:47→16:41)
[2020-02-15] MEDS: MUPIROCIN OINT 2% 22 GM TUBE NS SCH ×2 (08:48→21:23)
[2020-02-15] MEDS: PROSOURCE / PROSTAT (PYXIS) 30 ML UDC PO SCH ×3 (08:48→16:42)
[2020-02-15] MEDS: HYDROGEL DRESSING 90 GM TUBE TP SCH (08:49)
[2020-02-15] MEDS: METOPROLOL TARTRATE 50 MG TABLET PO SCH ×2 (08:50→21:08)
[2020-02-15] MEDS: FERROUS SULFATE (325 MG) 325 MG/TAB TABLET PO SCH (08:50)
[2020-02-15] MEDS: FUROSEMIDE 40 MG/4 ML VIAL IV SCH (08:50)
[2020-02-15] MEDS: DOCUSATE SODIUM 100 MG CAPSULE PO SCH ×2 (08:50→16:40)
[2020-02-15] MEDS: MULTIVITAMINS,THERAGRAN 1 UDTAB TABLET PO SCH (08:50)
[2020-02-15] MEDS: ASCORBIC ACID 500 MG TABLET PO SCH (08:51)
[2020-02-15] MEDS: PANTOPRAZOLE 40 MG TABLET.DR PO SCH (08:51)
[2020-02-15 15:37] LABS: CREATININE, URINE 24.9 MG/DL (30.0-125.0); URINE TOTAL PROTEIN 14.7 mg/dL (0-11.9)
[2020-02-15 15:39] LABS: APPEARANCE,URINE CLEAR (CLEAR); BILIRUBIN,URINE NEGATIVE (NEGATIVE); BLOOD, URINE SMALL Ery/uL (NEGATIVE); COLOR,URINE YELLOW (YELLOW); KETONES,URINE NEGATIVE (NEGATIVE); LEUKOCYTE ESTERASE ,URINE TRACE (NEGATIVE); NITRITE, URINE NEGATIVE (NEGATIVE); PH,URINE 5.5 (5.0-8.0); PROTEIN,URINE NEGATIVE (NEGATIVE); UGLUCOSE NEGATIVE (NEGATIVE); UROBILINOGEN,URINE 0.2 EU/dL (0.2)
[2020-02-15 16:00] VITALS: BP 136/83
[2020-02-15 16:27] LABS: BACTERIA,URINE 1+ /HPF (None Seen); SQUAMOUS EPITHELIAL CELL,UR 0-2 /HPF (None Seen)
[2020-02-15 16:43] LABS: EOSINOPHIL,URINE None Seen
--- NOTE | 2020-02-15 18:46 | NUR ---
CARDIAC NURSE SPECIALIST CLOSING NOTE PATIENT IN BED RESTING COMFORTABLY. PATIENT IN NO ACUTE DISTRESS. NO SOB NOTED. PATIENT BREATHING IS EVEN AND UNLABORED. PATIENT ON CARDIAC MONITORING READING AFIB HR 104. PATIENT BED ALARM IS ON. SAFETY PRECAUTIONS IN PLACE. PATIENT KEPT CLEAN, DRY, AND COMFORTABLE THROUGHOUT SHIFT. NEEDS AND CONCERNS ADDRESSED. PATIENT BED IS LOCKED AND IN LOWEST POSITION. CALL LIGHT WITHIN REACH. WILL ENDORSE CARE TO PM SHIFT FOR DENIS.
--- NOTE | 2020-02-15 20:00 | NUR ---
Opening Notes: Report received from am nurse. Patient alert, awake, and oriented x 2. Patient able to make needs known. No s/s of distress or discomfort noted. No c/o pain. No SOB. VS WNL. Patient assisted with turning and repositioning. HOB elevated for aspiration precaution. Needs anticipated. Fall precautions observed. Call light within reach.
[2020-02-15 20:07] VITALS: BP 149/86
[2020-02-15] MEDS: ATORVASTATIN 10 MG TABLET PO SCH (21:07)
[2020-02-15 23:44] VITALS: BP 155/58
[2020-02-16 00:51] VITALS: BP 146/70
[2020-02-16 05:00] VITALS: BP 136/70
[2020-02-16] MEDS: BLOOD SUGAR DIAGNOSTIC 1 EACH STRIP IN SCH ×2 (05:57→12:05)
--- NOTE | 2020-02-16 06:28 | NUR ---
Closing Notes: Patient alert, and oriented x2. Eyes closed, resting comfortably, on 4L O2 via NC as ordered. No s/s of distress, or discomfort noted, no c/o pain, no facial grimacing or moaning noted. VS WNL. Patient assisted with ADLs, turning and repositioning every 2 hours. HOB elevated for aspiration precautions, tolerated well. Patient kept clean and dry. Linens changed, good pericare provided. Needs anticipated and attended. Bed locked and in lowest position. Call light within easy reach.
[2020-02-16] MEDS: INSULIN REGULAR, HUMAN 100 UNIT/ML 3 ML VIAL SQ PRN ×2 (06:47→12:06)
--- NOTE | 2020-02-16 07:25 | NUR ---
POLICY WRITER NOTES RECEIVED PATIENT IN BED ASLEEP, AROUSABLE TO VERBAL AND TACTILE STIMULI. HOB ELEVATED. ON O2 AT 4L/MIN VIA NC RADHA WELL WITHOUT SOB NOTED. ALERT AND ORIENTED X2. ON TELE MONITORING SR: 90. RFA SL # 20 INTACT AND PATENT. DENIES ANY C/O PAIN NOR DISCOMFORT AT THIS TIME. BED IN LOWEST POSITION, LOCKED. BED ALARM ON. CALL LIGHT WITHIN REACH. ABLE TO VERBALIZE NEEDS.
[2020-02-16 08:00] VITALS: BP 139/68
[2020-02-16 08:08] LABS: CHLORIDE 100 mmol/L (98-107); CREATININE 1.2 mg/dL (0.6-1.3); GLUCOSE 179 mg/dL (74-106); POTASSIUM 3.4 mmol/L (3.5-5.1); SODIUM SERUM 144 mmol/L (136-145); UREA NITROGEN, BLOOD 56 mg/dL (7-18)
[2020-02-16 08:12] LABS: CARBON DIOXIDE 45 mmol/L (21-32)
[2020-02-16] MEDS: MUPIROCIN OINT 2% 22 GM TUBE NS SCH (08:48)
[2020-02-16] MEDS: HYDROGEL DRESSING 90 GM TUBE TP SCH (08:49)
[2020-02-16 08:51] VITALS: BP 139/68
[2020-02-16] MEDS: ASCORBIC ACID 500 MG TABLET PO SCH (08:51)
[2020-02-16] MEDS: METOPROLOL TARTRATE 50 MG TABLET PO SCH (08:51)
[2020-02-16] MEDS: FERROUS SULFATE (325 MG) 325 MG/TAB TABLET PO SCH (08:51)
[2020-02-16] MEDS: PANTOPRAZOLE 40 MG TABLET.DR PO SCH (08:51)
[2020-02-16] MEDS: DOCUSATE SODIUM 100 MG CAPSULE PO SCH (08:51)
[2020-02-16] MEDS: APIXABAN 5 MG TABLET PO SCH (08:52)
[2020-02-16] MEDS: MULTIVITAMINS,THERAGRAN 1 UDTAB TABLET PO SCH (08:54)
[2020-02-16] MEDS: PROSOURCE / PROSTAT (PYXIS) 30 ML UDC PO SCH ×2 (08:54→12:06)
[2020-02-16] MEDS ORDERED: POTASSIUM CHLORIDE 20 MEQ TAB.PRT.SR PO SCH ×2 (10:00)
--- NOTE | 2020-02-16 12:06 | NUR ---
PORTAINER OPERATOR NOTES BS 168MG/DL HELD INSULIN POOR PO INTAKE.
--- NOTE | 2020-02-16 14:00 | NUR ---
CONCRETE BUSTER OPERATOR NOTES PATIENT REFUSED TO HAVE PICTURES TAKEN PRIOR TO DISCHARGE.
--- NOTE | 2020-02-16 14:10 | NUR ---
PUNCHBOARD ASSEMBLER NOTES PATIENT FOR DISCHARGE. DISCHARGE INSTRUCTIONS GIVEN VIA PHONE AND REPORT GIVEN TO JOSE MARIA AT [facility] ([facility] PATIENT PICKED UP BY AMBULANCE ACCOMPANIED BY 2 EMT. REMAIN ON O2 AT 4L/MIN VIA NC RADHA WELL WITHOUT S/S OF RESPIRATORY DISTRESS. ALERT AND ORIENTED X2. ALL BELONGINGS ACCOUNTED FOR. IV ACCESS CATHETER REMOVED WITH CATHETER TIP INTACT. PATIENT LEFT IN STABLE CONDITION WITHOUT ANY S/S OF ACUTE DISTRESS.
[2020-02-19] MEDS ORDERED: APIXABAN 5 MG TABLET PO SCH (17:00)
== END 2020-02-16 14:10 | DRG 264 ==
LOC: ER 11:01 → TELE2 17:12 → TELE 02-12 15:13
PROVIDERS: ADMIT Nurse Practitioner Acute Care
PROC: 0JBP0ZZ Excision of Left Lower Leg Subcutaneous Tissue and Fascia, Open Approach (ICD-10-PCS; principal; 2020-02-14)
DX: I13.0 Hypertensive heart and chronic kidney disease with heart failure and stage 1 through stage 4 chronic kidney disease, or unspecified chronic kidney disease (principal); I50.33 Acute on chronic diastolic (congestive) heart failure; J96.01 Acute respiratory failure with hypoxia; G93.41 Metabolic encephalopathy; E43 Unspecified severe protein-calorie malnutrition; N17.0 Acute kidney failure with tubular necrosis; D68.69 Other thrombophilia; L97.828 Non-pressure chronic ulcer of other part of left lower leg with other specified severity; I82.411 Acute embolism and thrombosis of right femoral vein; E87.2 Acidosis; K21.9 Gastro-esophageal reflux disease without esophagitis; N31.9 Neuromuscular dysfunction of bladder, unspecified; N18.9 Chronic kidney disease, unspecified; M19.90 Unspecified osteoarthritis, unspecified site; E03.9 Hypothyroidism, unspecified; I48.91 Unspecified atrial fibrillation; J44.9 Chronic obstructive pulmonary disease, unspecified; E66.01 Morbid (severe) obesity due to excess calories; E78.5 Hyperlipidemia, unspecified; G30.9 Alzheimer's disease, unspecified; F02.80 Dementia in other diseases classified elsewhere, unspecified severity, without behavioral disturbance, psychotic disturbance, mood disturbance, and anxiety; Z79.4 Long term (current) use of insulin; Z83.3 Family history of diabetes mellitus; Z87.891 Personal history of nicotine dependence; Z98.84 Bariatric surgery status; E88.09 Other disorders of plasma-protein metabolism, not elsewhere classified; Z68.39 Body mass index [BMI] 39.0-39.9, adult; L98.8 Other specified disorders of the skin and subcutaneous tissue; L89.326 Pressure-induced deep tissue damage of left buttock; I70.248 Atherosclerosis of native arteries of left leg with ulceration of other part of lower leg; E11.51 Type 2 diabetes mellitus with diabetic peripheral angiopathy without gangrene; E11.22 Type 2 diabetes mellitus with diabetic chronic kidney disease
CPT/HCPCS: 36415; 71045-TC; 80048-TC; 80053-TC; 80061-TC; 80076-TC; 81000-TC; 82570-TC; 82962-TC; 83540-TC; 83735-TC; 83880; 84100-TC; 84155-TC; 84300-TC; 84443-TC; 84484-TC; 85025-TC; 85610-TC; 85730-TC; 87081-TC; 92521; 92526; 93307-TC; 93970-TC; A4349; A6248; G0378; J1644; J1815; J1940; U0003

== ENCOUNTER 2020-03-13 07:57 | Inpatient (IN) | payer MEDICARE, OTHER ==
[~2020-03-13] VITALS: Ht 172.7 cm; Wt 138.6 kg
[2020-03-13] VITALS (28 sets, daily range): BP systolic 96–179; BP diastolic 28–142
[~2020-03-13 07:57] MED LIST changes: +ACET-73 PO; +ACET250T3 PO; +ACET325T53 PO; +ALBU2.5V38 IH; +BIOTIN PO; +BUME1TAB9 PO; +CALC-883 PO; +CYCL30DR EACHEYE; +DICL100G16 TP; +DILT240C88 PO; -DILT60TA19 PO; -ESCI10TA PO; -FLUT16SP2 NS; +GEMF600T5 PO; +GUAIFENESIN PO; -INSU100I4 SQ; +INSU100V42; +KETO5DRO83 EACHEYE; +LACT1CAP89 PO; +LEVO50TA8 PO; +MAGN296S72 PO; +MELA3TAB41 PO; -MEMA10TA PO; +METO-295 PO; +OMEG1CAP PO; +OXYB10TA30 PO; -OXYB5TAB PO; +POLY17PO4 PO; -POTA10TA11 PO; +SENN-261 PO; +TEMA30CA PO; +TRAM50TA2 PO; +VITA400C71 PO; +ZINC1CAP3 PO; -[UNRECOGNIZED DRUG - CODE] PO
--- NOTE | 2020-03-13 07:58 | NUR ---
BIBRA 88 FROM [facility] FOR LOW O2 AND MORE ALTERED THAN USUAL. PATIENT IS NORMALLY ON CPAP AT NIGHT BUT FOUND THIS MORNING ON NR WITH DEFLATED BAG AT 5L/MIN. PATIENT'S O2 SAT WAS 98% WHEN FILM PRINTER ARRIVED TO THE SCENE. IC=820JO/DL IN THE FIELD. PLACED ON HOSPITAL GOWN AND PRENATAL GENETIC COUNSELOR UPON ARRIVAL TO THE ER. DR DOYLE AT FOR EVAL.
--- NOTE | 2020-03-13 08:30 | NUR ---
Blood drawn sent to lab. Urine sample obtained via man catheter, sterile technique used for insertion.
--- NOTE | 2020-03-13 08:35 | NUR ---
MOVE SHEET SUBMITTED AND CALLED FOR BED.
--- NOTE | 2020-03-13 08:39 | NUR ---
Influenza and Covid swab sent to lab.
--- NOTE | 2020-03-13 08:40 | NUR ---
ABG done by RT and result given to Dr. Byers with an order to place patient on Bipap. Patient on a negative pressure room.
--- NOTE | 2020-03-13 08:42 | NUR ---
BIPAP SETTING 18/5 30%.
[2020-03-13 08:43] LABS: CALCIUM, SERUM 8.7 mg/dL (8.5-10.1); CARBON DIOXIDE 35 mmol/L (21-32); CHLORIDE 104 mmol/L (98-107); CREATININE 2.1 mg/dL (0.6-1.3); GLUCOSE 176 mg/dL (74-106); SODIUM SERUM 139 mmol/L (136-145); UREA NITROGEN, BLOOD 50 mg/dL (7-18)
[2020-03-13] MEDS ORDERED: METOPROLOL TARTRATE INJ 5 MG/5 ML AMPUL ONE ×3 (08:43→09:19)
--- NOTE | 2020-03-13 08:43 | NUR ---
[facility] CALLED FLATWARE MAKER PAGED.
[2020-03-13 08:47] LABS: EOSINOPHILS % (AUTO) 0.3 % (0.0-6.0); LYMPHOCYTES # (AUTO) 0.7 /CMM (0.8-4.8); NEUTROPHILS # (AUTO) 3.8 /CMM (1.8-8.9); PLATELET COUNT (AUTO) 176 /CMM (150-450)
[2020-03-13] MEDS: METOPROLOL TARTRATE INJ 5 MG/5 ML AMPUL IVP PRN ×3 (08:47→09:23)
[2020-03-13 08:51] LABS: BASOPHILS # (AUTO) 0.1 /CMM (0.0-0.2); BASOPHILS % (AUTO) 1.3 % (0.0-2.0); HEMATOCRIT 38 % (39-51); HEMOGLOBIN 11.6 g/dL (13.5-17.5); LYMPHOCYTES % (AUTO) 13.1 % (20.0-44.0); MEAN CORPUSCULAR HGB CONC 31 g/dl (31.0-36.0); MEAN CORPUSCULAR VOLUME 100 fL (80-96); MONOCYTES # (AUTO) 0.6 /CMM (0.1-1.30); NEUTROPHILS % (AUTO) 74.3 % (43.0-81.0); RED BLOOD CELL COUNT(AUTO) 3.77 MIL/uL (4.5-6.0); WHITE BLOOD COUNT (AUTO) 5.2 K/uL (4.3-11.0)
[2020-03-13 08:56] LABS: ALANINE AMINOTRANSFERASE 15 U/L (12-78); ALBUMIN 2.2 g/dL (3.4-5.0); ALKALINE PHOSPHATASE 71 U/L (46-116); ASPARTATE AMINOTRANSFERASE 14 U/L (15-37); B-TYPE NATRIURETIC PEPTIDE 10370 PG/ML (0-125); BILIRUBIN,TOTAL 0.3 mg/dL (0.2-1.0)
[2020-03-13 09:03] LABS: CREATINE KINASE, TOTAL 36 U/L (39-308); FERRITIN 230 ng/mL (8-388); POTASSIUM 6.9 mmol/L (3.5-5.1)
[2020-03-13] MEDS ORDERED: SODIUM BICARBONATE SYR 50 MEQ/50 ML DISP.SYRIN ONE (09:11)
[2020-03-13] MEDS ORDERED: CALCIUM CHLORIDE 1,000 MG/10 ML DISP.SYRIN ONE (09:11)
[2020-03-13] MEDS ORDERED: FUROSEMIDE 20 MG/2 ML VIAL ONE (09:11)
[2020-03-13] MEDS ORDERED: DEXTROSE 50%-WATER 50 ML DISP.SYRIN ONE (09:12)
[2020-03-13] MEDS ORDERED: INSULIN REGULAR, HUMAN 100 UNIT/ML 10 ML VIAL ONE (09:12)
--- NOTE | 2020-03-13 09:12 | NUR ---
LONG DAUGHTER [phone] ITS A GOOD NUMBER PER TEGAN AT REHAB.
[2020-03-13] MEDS ORDERED: ALBUTEROL FS 2.5 MG/3 ML VIAL.NEB ONE ×2 (09:14→09:27)
--- NOTE | 2020-03-13 09:26 | NUR ---
PATIENT APPEARS TO BE MORE RESPONSIVE TO STIMULI. TOLERATING CURRENT BIPAP SETTING.
[2020-03-13 09:29] LABS: D-DIMER 0.49 mg/L(FEU (0.17-0.50)
[2020-03-13] MEDS ORDERED: INSULIN REGULAR, HUMAN 100 UNIT/ML 10 ML VIAL IV ONE (09:30)
[2020-03-13] MEDS ORDERED: DEXTROSE 50%-WATER 50 ML DISP.SYRIN IV ONE (09:30)
[2020-03-13] MEDS ORDERED: FUROSEMIDE 40 MG/4 ML VIAL IV ONE (09:30)
[2020-03-13] MEDS ORDERED: CEFEPIME 1 GM in IV D5W 50 ML IV ONE (09:30)
[2020-03-13] MEDS ORDERED: VANCOMYCIN 1 GM in IV D5W 250 ML IV ONE (09:30)
[2020-03-13] MEDS ORDERED: ALBUTEROL FS 2.5 MG/3 ML VIAL.NEB NEB ONE (09:30)
[2020-03-13] MEDS ORDERED: CALCIUM CHLORIDE 1,000 MG/10 ML DISP.SYRIN IV ONE (09:30)
[2020-03-13] MEDS ORDERED: SODIUM BICARBONATE SYR 50 MEQ/50 ML DISP.SYRIN IV ONE (09:30)
[2020-03-13 09:31] LABS: THYROID STIMULATING HORMONE 1.82 uIU/mL (0.358-3.74)
[2020-03-13 09:34] LABS: BILIRUBIN,URINE SMALL (NEGATIVE); BLOOD, URINE MODERATE Ery/uL (NEGATIVE); COLOR,URINE DARK YELLOW (YELLOW); LEUKOCYTE ESTERASE ,URINE SMALL (NEGATIVE); NITRITE, URINE NEGATIVE (NEGATIVE); PH,URINE 5.5 (5.0-8.0); PROTEIN,URINE 100 mg/dl (NEGATIVE); UGLUCOSE NEGATIVE (NEGATIVE); UROBILINOGEN,URINE 0.2 EU/dL (0.2)
[2020-03-13 09:42] LABS: ABG BASE EXCESS 1.5 mmol/L; ABG OXYGEN SATURATION 95.7 % (92.0-98.5); ABG PCO2 132.3 mmHg (35.0-45.0); ABG PH 7.048 (7.350-7.450); ABG PO2 98.5 mmHg (75.0-100.0); AaDO2 71.9 mmHg; COHb 0.9 % (0.5-1.5); MetHb 0.3 % (0.0-1.5); O2Hb 94.6 % (94.0-97.0); SITE, ABG Left Radial; VENT MODE, BG ST 18/5 20 30%
--- NOTE | 2020-03-13 09:42 | NUR ---
ICU BED 260
--- NOTE | 2020-03-13 09:53 | NUR ---
ICU BED 262 - EPORT GIVEN TO CURTIS FERNÁNDEZ.
[2020-03-13] MEDS ORDERED: APIX5TAB PO (10:09)
[2020-03-13] MEDS ORDERED: METF-442 PO (10:09)
[2020-03-13] MEDS ORDERED: PANT40TA2 PO (10:09)
[2020-03-13] MEDS ORDERED: MULT-447 PO (10:09)
[2020-03-13] MEDS ORDERED: PROVIGIL PO (10:09)
[2020-03-13] MEDS ORDERED: NYST15CR15 TP (10:09)
[2020-03-13] MEDS ORDERED: DICL100G16 TP (10:09)
[2020-03-13] MEDS ORDERED: BROM1.7D9 EACHEYE (10:09)
[2020-03-13] MEDS ORDERED: NYST500P2 TD (10:09)
[2020-03-13] MEDS ORDERED: ALBU0.633 IH (10:09)
[2020-03-13] MEDS ORDERED: ATOR10TA PO (10:09)
[2020-03-13] MEDS ORDERED: INSU100V3 SQ (10:09)
[2020-03-13] MEDS ORDERED: IPRA0.2S9 IH (10:09)
[2020-03-13] MEDS ORDERED: CEFEPIME 1 GM in IV D5W 50 ML IV SCH (10:30)
[2020-03-13] MEDS ORDERED: DEXTROSE 50%-WATER 50 ML DISP.SYRIN IV PRN (10:30)
[2020-03-13 10:39] LABS: ABG BASE EXCESS 3.4 mmol/L; ABG PCO2 90.6 mmHg (35.0-45.0); ABG PH 7.194 (7.350-7.450); COHb 0.6 % (0.5-1.5); MetHb 0.2 % (0.0-1.5); O2Hb 97.2 % (94.0-97.0); PEEP,BG 5 cm H2O; SITE, ABG Left Radial; VENT MODE, BG ST 18/5 20 30%
--- NOTE | 2020-03-13 10:39 | NUR ---
ABG DONE BY RT. RESULT RELAYED TO DR. DOYLE
[2020-03-13] MEDS ORDERED: ENOXAPARIN SODIUM 30 MG/0.3 ML DISP.SYRIN SQ SCH (11:00)
--- NOTE | 2020-03-13 11:00 | NUR ---
RT NOTE Pt brought in by ambu for hypoxia from snf. Abg done and pt placed on Bipap 18/5 20 30% per MD order. Repeat ABG done and pt transferred to ICU 262. Alarms are set and audible. Vent is plugged into red outlet. Pt sx'd for thin clear secretions. No distress noted @ this time.
[2020-03-13 11:01] LABS: BACTERIA,URINE Moderate /HPF (None Seen); SQUAMOUS EPITHELIAL CELL,UR Few /HPF (None Seen)
--- NOTE | 2020-03-13 11:01 | NUR ---
PATIENT TRANSFERRED TO ROOM 262 VIA ACLS PROTOCOL. RT AT BEDSIDE. PATIENT IN STABLE CONDITION. ENDORSED TO CURTIS FERNÁNDEZ. DENTURE ENDORSED TO NURSE.
[2020-03-13] MEDS: IPRATROPIUM NEB FS 0.5 MG/2.5 ML AMPUL.NEB NEB SCH ×4 (11:30→23:42)
[2020-03-13] MEDS: ALBUTEROL FS 2.5 MG/0.5 ML VIAL.NEB NEB SCH ×4 (11:30→23:42)
[2020-03-13] MEDS ORDERED: CEFEPIME 2 GM in IV D5W 100 ML IV SCH (12:00)
[2020-03-13 12:05] LABS: CREATININE, URINE 212.5 MG/DL (30.0-125.0); URINE TOTAL PROTEIN 203.2 mg/dL (0-11.9)
[2020-03-13] MEDS: methylPREDNISolone SOD SUCC 125 MG/2ML VIAL IV SCH ×2 (12:50→20:00)
[2020-03-13] MEDS: BLOOD SUGAR DIAGNOSTIC 1 EACH STRIP IN SCH ×3 (12:57→23:34)
[2020-03-13] MEDS ORDERED: TRAMADOL HCL 50 MG TABLET PO PRN (13:30)
[2020-03-13] MEDS ORDERED: DICLOFENAC TOPICAL 100 GM GEL..GM. TP PRN (13:30)
--- NOTE | 2020-03-13 13:35 | NUR ---
PATIENT'S BG 138, INSULIN HELD, PATIENT IS NPO AND AT RISK OF BECOMING HYPOGLYCEMIC
[2020-03-13] MEDS ORDERED: NS 0.9% IV PRN (14:00)
[2020-03-13] MEDS ORDERED: FUROSEMIDE IV PRN (14:00)
--- NOTE | 2020-03-13 14:23 | NUR ---
SALAD COUNTER ATTENDANT NOTE: RECEIVED PATIENT FROM ER AT 10:55 TODAY. PATIENT IS ON BIPAP 18/5, TOLERATING SETTINGS WITH EPISODES OF DESATURATION. PATIENT HAS ALOC, RESPONSIVE TO VIGOROUS STIMULI WITH UNCLEAR SPEECH. AFIB IN THE 100S NOTED ON THE BEDSIDE MONITOR. EAST DRAINING URINE. #18 LFA/RFA C/D/I, FLUSHING WELL, NO SIGNS OF COMPLICATIONS NOTED. PICTURES TAKEN OF WOUNDS AND PLACED IN CHART, WILL ORDER WOUND CONSULT. APRIL LIM ALREADY ROUNDED ON PATIENT WITH ADMITTING ORDERS. SPOKE WITH PATIENT'S DAUGHTER LONG REGARDING POLST, DAUGHTER STATED TO GO WITH WHAT THE POLST SAYS (DNI). SAFETY MEASURES IMPLEMENTED, BED IN LOWEST POSITION, LOCKED, SIDE RAILS UP, CALL LIGHT WITHIN REACH. WILL CONTINUE TO MONITOR PATIENT FOR CHANGES.
[2020-03-13 14:35] LABS: ABG BASE EXCESS 5.2 mmol/L; ABG OXYGEN SATURATION 94.4 % (92.0-98.5); ABG PCO2 64.3 mmHg (35.0-45.0); ABG PH 7.325 (7.350-7.450); ABG PO2 66.7 mmHg (75.0-100.0); AaDO2 71.7 mmHg; COHb 1.1 % (0.5-1.5); MetHb 0.1 % (0.0-1.5); O2Hb 93.3 % (94.0-97.0); SITE, ABG Right Radial; VENT MODE, BG IPAP 18 / EPAP 5
--- NOTE | 2020-03-13 16:37 | NUR ---
PLACED INTO NASAL CANNULA @ 2 LPM O2 FLOW. NO INCREASE WORK OF BREATHING NOTED Addendum: 03/13/20 at 1638 by MIKO CASTELLANOS RT Amended: Links added.
[2020-03-13 16:40] LABS: CALCIUM, SERUM 9.3 mg/dL (8.5-10.1); CARBON DIOXIDE 35 mmol/L (21-32); CHLORIDE 103 mmol/L (98-107); GLUCOSE 140 mg/dL (74-106); POTASSIUM 6.1 mmol/L (3.5-5.1); SODIUM SERUM 141 mmol/L (136-145); UREA NITROGEN, BLOOD 50 mg/dL (7-18)
[2020-03-13] MEDS: METOPROLOL TARTRATE 50 MG TABLET PO SCH (17:00)
[2020-03-13] MEDS ORDERED: FUROSEMIDE 40 MG/4 ML VIAL IV SCH (17:00)
[2020-03-13] MEDS: CALCIUM CARB 600MG /VIT D 1 EACH TABLET PO SCH (17:00)
[2020-03-13] MEDS: PROSTAT (PYXIS) 30 ML UDC PO SCH (17:00)
[2020-03-13] MEDS ORDERED: FUROSEMIDE 40 MG TABLET GT SCH (17:00)
[2020-03-13] MEDS ORDERED: Medication Not On Formulary EA (Metformin Hcl 1,000 MG) PO SCH (17:00)
[2020-03-13] MEDS: DOCUSATE SODIUM 100 MG CAPSULE PO SCH (17:00)
[2020-03-13] MEDS ORDERED: Medication Not On Formulary EA (Cyclosporine (Restasis) 1 DROP) EACHEYE SCH (17:00)
[2020-03-13] MEDS: APIXABAN 5 MG TABLET PO SCH (17:00)
--- NOTE | 2020-03-13 17:05 | NUR ---
PATIENT UNABLE TO TAKE 1700/1800 PO MEDS D/T ALOC AND R/F ASPIRATION. WILL CONTINUE TO MONITOR PATIENT. Addendum: 03/13/20 at 1915 by ANNMARIE MOSS RN APRIL LIM
[2020-03-13] MEDS: INSULIN REGULAR, HUMAN 100 UNIT/ML 3 ML VIAL SQ PRN ×2 (18:22→23:36)
[2020-03-13] MEDS: IV NS 0.9% 1,000 ML IV PRN (18:39)
--- NOTE | 2020-03-13 18:56 | NUR ---
RN CLOSING NOTE: PATIENT REMAINS IN ROOM. NO SIGNS OF ACUTE DISTRESS NOTED AT THIS TIME. UNCONTROLLED AFIB IN THE 110S NOTED ON THE BEDSIDE MONITOR. SAFETY MEASURES IMPLEMENTED, BED IN LOWEST POSITION, LOCKED, SIDE RAILS UP, CALL LIGHT WITHIN REACH. WILL CONTINUE TO MONITOR PATIENT FOR CHANGES. Addendum: 03/13/20 at 1858 by ANNMARIE MOSS RN WILL ENDORSE TO ONCOMING SHIFT RN FOR CONTINUITY OF CARE.
[2020-03-13] MEDS: ATORVASTATIN 10 MG TABLET PO SCH (21:12)
[2020-03-13] MEDS ORDERED: Medication Not On Formulary EA (Melatonin 3 MG) PO SCH (22:00)
--- NOTE | 2020-03-13 22:50 | NUR ---
EXTENSION SERVICE SUPERVISOR: RECEIVED NEGATIVE PCR RESULT FROM LAB. ISOLATION DISCONTINUED. PT MADE AWARE.
[2020-03-14] VITALS (39 sets, daily range): BP systolic 86–196; BP diastolic 27–126
[2020-03-14] MEDS: IPRATROPIUM NEB FS 0.5 MG/2.5 ML AMPUL.NEB NEB SCH ×6 (03:33→23:45)
[2020-03-14] MEDS: ALBUTEROL FS 2.5 MG/0.5 ML VIAL.NEB NEB SCH ×7 (03:34→23:45)
[2020-03-14 04:39] LABS: HEMATOCRIT 31 % (39-51); HEMOGLOBIN 9.8 g/dL (13.5-17.5); LYMPHOCYTES # (AUTO) 0.4 /CMM (0.8-4.8); LYMPHOCYTES % (AUTO) 12.7 % (20.0-44.0); MEAN CORPUSCULAR HGB CONC 32 g/dl (31.0-36.0); MEAN CORPUSCULAR VOLUME 98 fL (80-96); MONOCYTES # (AUTO) 0.2 /CMM (0.1-1.30); MONOCYTES % (AUTO) 8.1 % (2.0-12.0); NEUTROPHILS # (AUTO) 2.2 /CMM (1.8-8.9); NEUTROPHILS % (AUTO) 79.2 % (43.0-81.0); PLATELET COUNT (AUTO) 137 /CMM (150-450); RED BLOOD CELL COUNT(AUTO) 3.14 MIL/uL (4.5-6.0); WHITE BLOOD COUNT (AUTO) 2.8 K/uL (4.3-11.0)
[2020-03-14 05:05] LABS: ALANINE AMINOTRANSFERASE 13 U/L (12-78); ALBUMIN 1.5 g/dL (3.4-5.0); ALKALINE PHOSPHATASE 51 U/L (46-116); ASPARTATE AMINOTRANSFERASE 10 U/L (15-37); BILIRUBIN,TOTAL 0.3 mg/dL (0.2-1.0); CALCIUM, SERUM 7.3 mg/dL (8.5-10.1); CARBON DIOXIDE 29 mmol/L (21-32); CHLORIDE 109 mmol/L (98-107); CREATININE 1.6 mg/dL (0.6-1.3); GLUCOSE 154 mg/dL (74-106); MAGNESIUM 1.6 mg/dL (1.8-2.4); POTASSIUM 4.7 mmol/L (3.5-5.1); SODIUM SERUM 144 mmol/L (136-145); UREA NITROGEN, BLOOD 42 mg/dL (7-18)
[2020-03-14 05:07] LABS: CHOLESTEROL 94 mg/dL (<200); CREATINE KINASE, TOTAL 21 U/L (39-308); HDL CHOLESTEROL 37 mg/dL (40-60); LDL 45 mg/dL (0-99); TRIGLYCERIDES 75 mg/dL (30-150)
[2020-03-14] MEDS: methylPREDNISolone SOD SUCC 125 MG/2ML VIAL IV SCH ×3 (05:12→21:43)
[2020-03-14 05:20] LABS: LYMPHOCYTES % (MANUAL) 14 % (16-48); MONOCYTES % (MANUAL) 9 % (0-11.0); NEUTROPHILS % (MANUAL) 77 (42-76)
[2020-03-14] MEDS: BLOOD SUGAR DIAGNOSTIC 1 EACH STRIP IN SCH ×3 (05:25→17:30)
[2020-03-14] MEDS: INSULIN REGULAR, HUMAN 100 UNIT/ML 3 ML VIAL SQ PRN ×3 (05:27→17:33)
--- NOTE | 2020-03-14 05:50 | NUR ---
AUTO DAMAGE ADJUSTER: NO SIGNIFICANT CHANGE OF CONDITION DURING THE SHIFT. PT MORE ALERT AND AWAKE WT RESTLESSNESS. ABLE TO STATE HIS NAME AND FOLLOW SIMPLE COMMANDS. NO C/O PAIN OR EVIDENCE OF DISCOMFORT. PLACED ON BIPAP AT 2030 AND TOLERATED FAIRLY. HAD EPISODES OF TRYING TO REMOVE MASK, PT TEACHING RENDERED WT GOOD EFFECT. STILL ON UNCONTROLLED A. FIB WT HR IN THE LOW 100s TO 130s ON BASKET TURNER. CONTINUE ON LASIX DRIP AT 5MG/HR AND NS AT 75ML/HR WT NO S/S OF INFILTRATION ON IV SITES. LARGE AMT. OF YELLOW URINE NOTED VIA F/C. HOB ABOVE 35 DEGREES. BED IN LOWEST POSITION AND LOCKED, BED ALARM ACTIVATED, SIDE RAILS UP X 2, CALL LIGHT KEPT WITHIN REACH.
[2020-03-14] MEDS: IV NS 0.9% 1,000 ML IV PRN (06:37)
--- NOTE | 2020-03-14 07:28 | NUR ---
RECEIVED PATIENT IN BED. NO ACUTE DISTRESS NOTED. PATIENT ALERT & ORIENTED X2, WITH CONFUSION. PATIENT ON 2L NASAL CANULA, SATURATING AT 92-94%. PATIENT ON DATA WAREHOUSE SPECIALIST, A. FIB44 NOTED WITH HEART RATE IN 120S-130S. PATIENT. PATIENT LEFT FOREARM AND RIGHT FOREARM IV ACCESS INTACT, PATENT FLUSHED WELL. PATIENT NPO STATUS ACKNOWLEDGED, AWAITING SWALLOW EVAL. PATIENT EAST CATHETER IN PLACE, INTACT, DRAINING TO GRAVITY. PATIENT SAFETY MEASURES MAINTAINED. CALL LIGHT WITHIN REACH. WILL CONTINUE TO MONITOR.
[2020-03-14] MEDS: VANCOMYCIN 1.25 GM in IV D5W 250 ML IV SCH (08:04)
[2020-03-14] MEDS: CALCIUM CARB 600MG /VIT D 1 EACH TABLET PO SCH ×2 (08:05→16:39)
[2020-03-14] MEDS: PANTOPRAZOLE 40 MG TABLET.DR PO SCH (08:05)
[2020-03-14] MEDS: DOCUSATE SODIUM 100 MG CAPSULE PO SCH ×2 (08:05→16:40)
[2020-03-14] MEDS: LEVOTHYROXINE SODIUM 50 MCG TABLET PO SCH (08:05)
[2020-03-14] MEDS: FERROUS SULFATE (325 MG) 325 MG/TAB TABLET PO SCH (08:05)
[2020-03-14] MEDS: MULTIVIT W/MINERALS 1 TAB TABLET PO SCH (08:05)
[2020-03-14] MEDS: ASCORBIC ACID 500 MG TABLET PO SCH (08:06)
[2020-03-14] MEDS: NYSTATIN/TRIAMCIN 15 GM CREAM 15 GM TUBE TP SCH (08:06)
[2020-03-14] MEDS: NYSTATIN TOP POWDER 15 GM BOTTLE TP SCH (08:06)
[2020-03-14] MEDS: PROSTAT (PYXIS) 30 ML UDC PO SCH ×3 (08:07→16:41)
[2020-03-14] MEDS: METOPROLOL TARTRATE 50 MG TABLET PO SCH ×2 (08:07→16:42)
[2020-03-14] MEDS: APIXABAN 5 MG TABLET PO SCH ×2 (08:09→16:43)
[2020-03-14] MEDS ORDERED: Medication Not On Formulary EA (Bromfenac Sodium 1 DROP) EACHEYE SCH (09:00)
[2020-03-14] MEDS ORDERED: Medication Not On Formulary EA (Omega-3 Fatty Acids/Fish Oil (Fish Oil 1,000 Mg Capsule) PO SCH (09:00)
[2020-03-14] MEDS ORDERED: VITAMIN E ACETATE PO SCH (09:00)
--- NOTE | 2020-03-14 09:43 | NUR ---
GAVE REPORT TO JOLENE AYERS FOR CONTINUITY OF CARE. TRANSFERRED PATIENT IN STABLE CONDITION TO [facility], BED 307-1
--- NOTE | 2020-03-14 09:45 | NUR ---
DOCTOR CHIROPRACTIC NOTES RECEIVED PATIENT FROM ICU VIA GURNEY IN STABLE CONDITION.ON O2 @2L VIA NC. WITH EVEN UNLABORED BREATHING, NO C/O SOB NO C/O PAIN AT THIS TIME. PT WITH IV TO LT & RT FA BOTH #18G. PATENT AND INTACT. RUNNING NS @75 ML/HR. PT WITH NOCTURNAL BIPAP. PER CAROLANN FERNÁNDEZ PT HAD A VENOUS STUDY WITH +DVT TO RT FEMORAL VEIN DR. MEGAN LIM WAS NOTIFIED. PT ON ELIQUIS. CHARGE NURSE NOTIFIED. PT AWAITING SWALLOW EVAL. BP110/89 HR: 120 R:18 TEMP:98.9 O2 SAT 98% PT ON TELE MONITOR READING A-FIB HR IN THE 120'S-130'S. WILL CONTINUE TO MONITOR PATIENT THROUGH OUT SHIFT.
[2020-03-14] MEDS ORDERED: CEFEPIME 2 GM in IV D5W 100 ML IV SCH (10:00)
[2020-03-14] MEDS ORDERED: Magnesium 1GM/D5W 100ML PREMIX 100 ML IV SCH (10:30)
[2020-03-14] MEDS: CEFEPIME 2 GM in IV D5W 100 ML IV SCH (12:33)
[2020-03-14] MEDS ORDERED: NEUTRA PHOS 1 POWD.PACKET PO ONE (15:30)
[2020-03-14] MEDS: FUROSEMIDE 40 MG/4 ML VIAL IV SCH (16:39)
[2020-03-14] MEDS: DILTIAZEM HCL 30 MG TABLET PO SCH (17:31)
--- NOTE | 2020-03-14 18:34 | NUR ---
ELECTRICAL CONTROLS ASSEMBLER CLOSING NOTES PATIENT RESTING IN BED A/OX2, ON OXYGEN VIA NC @2L BREATHING EVEN AND UNLABORED WITH NO RESPIRATORY DISTRESS NOTED AND NO C/O SOB. NO C/O PAIN. PT ON TELE MONITOR READING A-FIB WITH SINUS TACH IN THE 100'S. PT WITH FC AND TOTAL OUTPUT OF 3000 CC THIS SHIFT. PT ON LASIX 40 MG IV BID. SWALLOW EVAL DONE PT PLACED ON MECHANICAL SOFT DIET. BED IS AT LOWEST POSITION AND LOCKED WITH SIDE RAILS UPX2 AND CALL LIGHT WITH IN REACH WILL ENDORSE TO ONCOMING SHIFT.
--- NOTE | 2020-03-14 19:30 | NUR ---
tele revolving field assembler initial notes received pt in bed resting with eyes closed not in any acute distress noted. he had 02 at 2 liters via NC. he also had man to gravity with clear yellow output noted . skin warm and dry touch. Noticed steri -strips on his left eyebrow. no bleeding noted. kept him warm and comfortable at all times. A-fib on tele monitor. bed in low and lock in position with side rails x2 up and placed call light at reach. will continue monitoring.
[2020-03-14] MEDS: ATORVASTATIN 10 MG TABLET PO SCH (22:09)
--- NOTE | 2020-03-15 00:30 | NUR ---
tele director credit risk noted blood sugar checked done 215 , no signs of Hyper glycemia noted, 4 units of insulin given celena SQ different site as ordered. snacks served as ordered. oral routine med given no aspiration noted at this time. will continue monitoring. A-fib on tele monitor.
[2020-03-15] MEDS: BLOOD SUGAR DIAGNOSTIC 1 EACH STRIP IN SCH ×5 (00:32→23:30)
[2020-03-15] MEDS: DILTIAZEM HCL 30 MG TABLET PO SCH ×5 (00:32→23:29)
[2020-03-15] MEDS: INSULIN REGULAR, HUMAN 100 UNIT/ML 3 ML VIAL SQ PRN ×5 (00:34→23:43)
[2020-03-15] MEDS: IPRATROPIUM NEB FS 0.5 MG/2.5 ML AMPUL.NEB NEB SCH ×6 (03:48→23:25)
[2020-03-15] MEDS: ALBUTEROL FS 2.5 MG/0.5 ML VIAL.NEB NEB SCH ×6 (03:48→23:25)
[2020-03-15 04:00] VITALS: BP 134/69
[2020-03-15] MEDS: methylPREDNISolone SOD SUCC 125 MG/2ML VIAL IV SCH ×3 (05:40→20:13)
[2020-03-15] MEDS: LEVOTHYROXINE SODIUM 50 MCG TABLET PO SCH (06:43)
[2020-03-15] MEDS: PANTOPRAZOLE 40 MG TABLET.DR PO SCH (06:43)
--- NOTE | 2020-03-15 06:58 | NUR ---
tele chief strategy officer closing notes pt awake and alert watching tv at this time , blood sugar checked 206 4 units of insulin given celena SQ as ordered. no signs of hyper glycemia noted. Stable throughout the night and slept well. all due meds given and all needs met. tele A-fib and vital signs has been stable throughout the shift. kept him warm and comfortable at all times. no signs of any distresss or any discomfort noted. bed in low and lock in position with side rails x2 up and bed alarm set for pt safety. will endorse to am nurse for continuity of care.
[2020-03-15 08:00] VITALS: BP 137/71
--- NOTE | 2020-03-15 08:00 | NUR ---
RN OPENING NOTE Patient is resting in bed, A/O x3, showing no signs of acute distress or SOB, saturating 98% on 3L NC. Tele monitor A-FIB 111. Patient denies any pain at this time. Roblero catheter noted. IV lines in the LFA and RFA#18g is clean and intact flushing well. Bed is in lowest position, side rails x3 in upright position, call light is within reach, fall safety and aspiration precautions enforced. Will continue with plan of care.
[2020-03-15] MEDS: METOPROLOL TARTRATE 50 MG TABLET PO SCH ×2 (08:23→16:08)
[2020-03-15] MEDS: CALCIUM CARB 600MG /VIT D 1 EACH TABLET PO SCH ×2 (08:23→16:07)
[2020-03-15] MEDS: ASCORBIC ACID 500 MG TABLET PO SCH (08:23)
[2020-03-15] MEDS: FUROSEMIDE 40 MG/4 ML VIAL IV SCH ×2 (08:23→16:07)
[2020-03-15] MEDS: MULTIVIT W/MINERALS 1 TAB TABLET PO SCH (08:23)
[2020-03-15] MEDS: DOCUSATE SODIUM 100 MG CAPSULE PO SCH ×2 (08:23→16:07)
[2020-03-15] MEDS: FERROUS SULFATE (325 MG) 325 MG/TAB TABLET PO SCH (08:23)
[2020-03-15] MEDS: APIXABAN 5 MG TABLET PO SCH ×2 (08:24→16:08)
[2020-03-15 08:33] LABS: CALCIUM, SERUM 8.8 mg/dL (8.5-10.1); CARBON DIOXIDE 39 mmol/L (21-32); CHLORIDE 97 mmol/L (98-107); CREATININE 1.8 mg/dL (0.6-1.3); GLUCOSE 221 mg/dL (74-106); MAGNESIUM 1.9 mg/dL (1.8-2.4); PHOSPHORUS 3.8 mg/dL (2.5-4.9); POTASSIUM 5.1 mmol/L (3.5-5.1); SODIUM SERUM 140 mmol/L (136-145); UREA NITROGEN, BLOOD 45 mg/dL (7-18)
[2020-03-15] MEDS: NYSTATIN/TRIAMCIN 15 GM CREAM 15 GM TUBE TP SCH (08:38)
[2020-03-15] MEDS: NYSTATIN TOP POWDER 15 GM BOTTLE TP SCH (08:38)
[2020-03-15] MEDS ORDERED: PROSOURCE / PROSTAT (PYXIS) 30 ML UDC GT SCH (09:00)
[2020-03-15] MEDS: VANCOMYCIN 1.25 GM in IV D5W 250 ML IV SCH (09:05)
[2020-03-15] MEDS: PROSOURCE / PROSTAT (PYXIS) 30 ML UDC GT SCH ×3 (09:49→16:07)
[2020-03-15] MEDS: CEFEPIME 2 GM in IV D5W 100 ML IV SCH (11:38)
[2020-03-15 16:00] VITALS: BP 139/70
--- NOTE | 2020-03-15 19:30 | NUR ---
RN NOTE RECEIVED PATIENT IN BED, AO X2. PATIENT IN NO S/SX OF ACUTE DISTRESS AT THIS TIME. PATIENT'S BREATHING IS EVEN AND UNLABORED. PATIENT IS ON 2 L OF OXYGEN VIA NC, TOLERATING WELL, SATURATING AT 96%. PATIENT ON TELE MONITOR READING AFIB CONTROLLED, HR IS 85. NOTED IV SITE AT RIGHT AND LEFT FOREARM, BOTH PATENT AND FLUSHING WELL ,NO S/S OF INFECTION OR INFILTRATION. EAST CATH CONNECTED TO URINE BAG IN PLACE, DRAINING TO A CLEAR YELLOW URINE. SAFETY MEASURES IMPLEMENTED PER PROTOCOL. PATIENT BED ALARM IS ON. HEAD OF BED ELEVATED. BED IS LOCKED, IN LOWEST POSITION AND SIDE RAILS UP. CALL LIGHT WITHIN REACH OF THE PATIENT. WILL CONTINUE TO MONITOR AND REASSESS FOR ANY CHANGES.
--- NOTE | 2020-03-15 19:48 | NUR ---
RN CLOSING NOTE Patient is resting in bed, A/O x3, showing no signs of acute distress or SOB, saturating 98% on 3L NC. Tele monitor A-FIB 90s-100s. Roblero catheter noted with clear yellow output. IV lines in the LFA and RFA#18g is clean and intact flushing well. All patient needs met, all due medications given. patient kept clean and dry throughout shift. Bed is in lowest position, side rails x3 in upright position, call light is within reach, fall safety and aspiration precautions enforced. Will endorse to asset protection officer for DENIS.
[2020-03-15 20:48] VITALS: BP 137/67
[2020-03-15] MEDS: ATORVASTATIN 10 MG TABLET PO SCH (21:17)
[2020-03-16 00:12] VITALS: BP 126/67
[2020-03-16 01:06] LABS: PTH, INTACT 24 pg/mL (15-65)
[2020-03-16] MEDS: IPRATROPIUM NEB FS 0.5 MG/2.5 ML AMPUL.NEB NEB SCH ×6 (03:25→23:33)
[2020-03-16] MEDS: ALBUTEROL FS 2.5 MG/0.5 ML VIAL.NEB NEB SCH ×6 (03:25→23:33)
[2020-03-16] MEDS: methylPREDNISolone SOD SUCC 125 MG/2ML VIAL IV SCH ×3 (05:03→21:21)
--- NOTE | 2020-03-16 05:18 | NUR ---
RN NOTE PER DANIELA JACINTO, PATIENT REFUSED BEDBATH AND COMPLETE LINEN CHANGE. PATIENT SIAD HE WANTED TO SLEEP AND DOESNT WANT TO BE BOTHERED. OPHTHALMIC TECHNICIAN APPRENTICE MADE AWARE.
[2020-03-16 06:22] LABS: CHLORIDE 93 mmol/L (98-107); CREATININE 1.5 mg/dL (0.6-1.3); GLUCOSE 261 mg/dL (74-106); POTASSIUM 4.3 mmol/L (3.5-5.1); SODIUM SERUM 137 mmol/L (136-145); UREA NITROGEN, BLOOD 46 mg/dL (7-18)
--- NOTE | 2020-03-16 06:32 | NUR ---
RN NOTE TELEPHONE FROM JENNYFER OF [facility], RELAYED CRITICAL LAB VALUE OF [address] RODRIGUEZ WAS NOTIFIED, SHE ACKNOWLEDGED WITH NO NEW ORDERS. MARKETING COMMUNICATIONS MANAGER MADE AWARE.
[2020-03-16 06:33] LABS: CARBON DIOXIDE 43 mmol/L (21-32)
[2020-03-16] MEDS: BLOOD SUGAR DIAGNOSTIC 1 EACH STRIP IN SCH ×4 (06:40→23:56)
[2020-03-16] MEDS: PANTOPRAZOLE 40 MG TABLET.DR PO SCH (06:42)
[2020-03-16] MEDS: LEVOTHYROXINE SODIUM 50 MCG TABLET PO SCH (06:42)
[2020-03-16] MEDS: DILTIAZEM HCL 30 MG TABLET PO SCH ×4 (06:50→23:56)
[2020-03-16] MEDS: INSULIN REGULAR, HUMAN 100 UNIT/ML 3 ML VIAL SQ PRN ×4 (06:53→23:54)
--- NOTE | 2020-03-16 07:54 | NUR ---
ARTS THERAPIST NOTE PATIENT IN BED RESTING COMFORTABLY. PATIENT IN NO ACUTE DISTRESS. NO SOB NOTED. PATIENT BREATHING IS EVEN AND UNLABORED. PATIENT ON CARDIAC MONITORING READING AFIB HR 98. PATIENT HOB IS ELEVATED. PATIENT BED ALARM IS ON. PATIENT SAFETY PRECAUTIONS IN PLACE. PATIENT BED IS LOCKED AND IN LOWEST POSITION. CALL LIGHT WITHIN REACH. WILL CONTINUE TO MONITOR.
[2020-03-16 08:00] VITALS: BP 128/70
[2020-03-16] MEDS: VANCOMYCIN 1.25 GM in IV D5W 250 ML IV SCH (08:56)
[2020-03-16] MEDS: FERROUS SULFATE (325 MG) 325 MG/TAB TABLET PO SCH (09:00)
[2020-03-16] MEDS: ASCORBIC ACID 500 MG TABLET PO SCH (09:00)
[2020-03-16] MEDS: DOCUSATE SODIUM 100 MG CAPSULE PO SCH ×2 (09:00→17:00)
[2020-03-16] MEDS: CALCIUM CARB 600MG /VIT D 1 EACH TABLET PO SCH ×2 (09:00→17:10)
[2020-03-16] MEDS: APIXABAN 5 MG TABLET PO SCH ×2 (09:01→17:10)
[2020-03-16] MEDS: MULTIVIT W/MINERALS 1 TAB TABLET PO SCH (09:01)
[2020-03-16] MEDS: METOPROLOL TARTRATE 50 MG TABLET PO SCH ×2 (09:02→17:10)
[2020-03-16] MEDS: FUROSEMIDE 40 MG/4 ML VIAL IV SCH ×2 (09:02→17:09)
[2020-03-16] MEDS: PROSOURCE / PROSTAT (PYXIS) 30 ML UDC GT SCH ×3 (09:04→16:06)
[2020-03-16] MEDS: NYSTATIN/TRIAMCIN 15 GM CREAM 15 GM TUBE TP SCH (09:08)
[2020-03-16] MEDS: NYSTATIN TOP POWDER 15 GM BOTTLE TP SCH (09:08)
[2020-03-16] MEDS: CEFEPIME 2 GM in IV D5W 100 ML IV SCH (11:57)
[2020-03-16 12:00] VITALS: BP 133/71
[2020-03-16 16:00] VITALS: BP 130/72
--- NOTE | 2020-03-16 16:43 | NUR ---
ACCOUNTANT TAX NOTE PATIENT COMPLAINING OF COUGH. INFORMED DR. MORGAN AND PER MD SYED 15ML Q6H PRN.
[2020-03-16] MEDS: GUAIFENESIN 300 MG/15 ML UDC PO PRN (17:08)
--- NOTE | 2020-03-16 17:08 | NUR ---
BODY FITTER NOTE PATIENT COMPLAINING OF COUGH. ROBITUSSIN PRN GIVEN ORDERED.
--- NOTE | 2020-03-16 17:11 | NUR ---
NANOELECTRONICS ENGINEER NOTE HELD DOCUSATE PM DOSE DUE TO PATIENT HAVING DIARRHEA LAST BOWEL MOVEMENT.
--- NOTE | 2020-03-16 19:15 | NUR ---
CLINICAL ASST NOTE PATIENT IN BED RESTING COMFORTABLY. PATIENT IN NO ACUTE DISTRESS. NO SOB NOTED. PATIENT BREATHING IS EVEN AND UNLABORED. PATIENT ON CARDIAC MONITORING READING AFIB HR 91. PATIENT HOB IS ELEVATED. PATIENT BED ALARM IS ON. PATIENT KEPT CLEAN, DRY, AND COMFORTABLE THROUGHOUT SHIFT. EXPLAINED ALL DUE MEDS. PATIENT SAFETY PRECAUTIONS IN PLACE. PATIENT BED IS LOCKED AND IN LOWEST POSITION. CALL LIGHT WITHIN REACH. WILL ENDORSE CARE TO PM SHIFT FOR DENIS.
--- NOTE | 2020-03-16 19:35 | NUR ---
RN NOTES RECEIVED PT. AWAKE ON BED, A/OX3, A-FIB ON TELE MONITOR HR-94, F/C DRAINING CLEAR YELLOW URINE, NOT IN DISTRESS, CALL LIGHT WITHIN REACH, SIDERAILSUPX2, CONTINUE TO MONITOR
[2020-03-16 20:00] VITALS: BP 126/68
[2020-03-16] MEDS: ATORVASTATIN 10 MG TABLET PO SCH (21:21)
[2020-03-16] MEDS: MEROPENEM 1 G in IV NS 0.9% 100 ML IV SCH (21:21)
[2020-03-17] VITALS: BP_SYST 110; BP_SYST 132; BP_DIAS 65; BP_DIAS 74
--- NOTE | 2020-03-17 01:25 | NUR ---
RN NOTES COMPLAINED OF GENERALIZED PAIN AND ASKING FOR PAIN MEDICATION-ULTRAM 50MG PO GIVEN ORDERED, V/S STABLE
[2020-03-17] MEDS: IPRATROPIUM NEB FS 0.5 MG/2.5 ML AMPUL.NEB NEB SCH ×3 (03:30→11:17)
[2020-03-17] MEDS: ALBUTEROL FS 2.5 MG/0.5 ML VIAL.NEB NEB SCH ×3 (03:30→11:17)
[2020-03-17 04:08] VITALS: BP 130/69
[2020-03-17] MEDS: methylPREDNISolone SOD SUCC 125 MG/2ML VIAL IV SCH ×3 (05:00→13:33)
[2020-03-17] MEDS: BLOOD SUGAR DIAGNOSTIC 1 EACH STRIP IN SCH ×3 (05:18→12:18)
[2020-03-17] MEDS: DILTIAZEM HCL 30 MG TABLET PO SCH ×3 (05:19→13:32)
--- NOTE | 2020-03-17 06:00 | NUR ---
RN NOTES PT. REFUSED TO TAKE HIS CARDIZEM AND SOLU-MEDROL AND REFUSED TO HAVE HIS BLOOD SUGAR CHECKED,, EXPLAINED THE BENEFITSOF HIS MEDICATION PT. STILL REFUSING
--- NOTE | 2020-03-17 06:45 | NUR ---
RN NOTES TRIED TO CHECKED HIS BLOOD SUGAR BEFORE GETTING HIS BREAKFAST BUT PT. STILL REFUSING, SPOKE TO HIS SISTER AND INFORMED ABOUT IT AND PER HIS SISTER, SHE WILL TALK TO HIS BROTHER
[2020-03-17 08:03] VITALS: BP 147/58
[2020-03-17] MEDS: PANTOPRAZOLE 40 MG TABLET.DR PO SCH (08:36)
[2020-03-17] MEDS: LEVOTHYROXINE SODIUM 50 MCG TABLET PO SCH (08:36)
[2020-03-17] MEDS: CALCIUM CARB 600MG /VIT D 1 EACH TABLET PO SCH (08:39)
[2020-03-17] MEDS: METOPROLOL TARTRATE 50 MG TABLET PO SCH (08:39)
[2020-03-17] MEDS: MULTIVIT W/MINERALS 1 TAB TABLET PO SCH (08:40)
[2020-03-17] MEDS: APIXABAN 5 MG TABLET PO SCH (08:40)
[2020-03-17] MEDS: FERROUS SULFATE (325 MG) 325 MG/TAB TABLET PO SCH (08:40)
[2020-03-17] MEDS: FUROSEMIDE 40 MG/4 ML VIAL IV SCH (08:41)
[2020-03-17] MEDS: PROSOURCE / PROSTAT (PYXIS) 30 ML UDC GT SCH ×2 (08:50→13:32)
[2020-03-17] MEDS: ASCORBIC ACID 500 MG TABLET PO SCH (08:50)
[2020-03-17] MEDS: DOCUSATE SODIUM 100 MG CAPSULE PO SCH (08:50)
[2020-03-17] MEDS: NYSTATIN TOP POWDER 15 GM BOTTLE TP SCH (08:51)
[2020-03-17] MEDS: NYSTATIN/TRIAMCIN 15 GM CREAM 15 GM TUBE TP SCH (08:51)
[2020-03-17] MEDS: MEROPENEM 1 G in IV NS 0.9% 100 ML IV SCH (08:53)
--- NOTE | 2020-03-17 12:00 | NUR ---
WAXING MACHINE OPERATOR NOTES REPORT GIVEN TO HIRA FERNÁNDEZ, PATIENT IN STABLE CONDITION.
[2020-03-17 12:07] VITALS: BP 131/81
[2020-03-17] MEDS: INSULIN REGULAR, HUMAN 100 UNIT/ML 3 ML VIAL SQ PRN (12:19)
[2020-03-17] MEDS: GUAIFENESIN 300 MG/15 ML UDC PO PRN (12:20)
--- NOTE | 2020-03-17 12:25 | NUR ---
SOFTWARE APPLICATIONS ARCHITECT NOTE PATIENT IN BED RESTING COMFORTABLY. PATIENT IN NO ACUTE DISTRESS. NO SOB NOTED. PATIENT BREATHING IS EVEN AND UNLABORED. PATIENT HOB IS ELEVATED. PATIENT BED ALARM IS ON. PATIENT SAFETY PRECAUTIONS IN PLACE. PATIENT BED IS LOCKED AND IN LOWEST POSITION. CALL LIGHT WITHIN REACH. WILL CONTINUE TO MONITOR.
--- NOTE | 2020-03-17 14:58 | NUR ---
FINANCIAL SERVICE REPRESENTATIVE NOTE PATIENT REFUSING SKIN ASSESSMENT. EDUCATED RISKS VS BENEFITS. PATIENT CONTINUED TO REFUSE.
--- NOTE | 2020-03-17 15:50 | NUR ---
DATA VISUALIZATION DEVELOPER NOTE PATIENT MEDICALLY CLEARED FOR DISCHARGE. PATIENT IN NO ACUTE DISTRESS. NO SOB NOTED. PATIENT BREATHING IS EVEN AND UNLABORED. PATIENT VITAL SIGNS WNL. DC INSTRUCTIONS PROVIDED. PATIENT VERBALIZED UNDERSTANDING. ID BAND REMOVED. BELONGINGS LIST SIGNED AND WITH PATIENT. PATIENT EAST CATHETER IN PLACE AND PATENT. PATIENT KEPT CLEAN, DRY, AND COMFORTABLE THROUGHOUT SHIFT. NEEDS AND CONCERNS ADDRESSED. PATIENT REFUSED SKIN ASSESSMENT. EDUCATED RISKS VS BENEFITS. PATIENT CONTINUED TO REFUSE. REPORT GIVEN TO [facility]. PATIENT GOING BY AMBULANCE BACK TO REHAB WITH 4 SLEDGER. REPORT GIVEN TO SLEDGER. MD AWARE OF DISCHARGE.
[2020-03-17 16:09] VITALS: BP 134/82
[2020-03-17] MEDS ORDERED: FUROSEMIDE 40 MG TABLET PO SCH (17:00)
[2020-03-18 12:06] LABS: *SPE A/G RATIO 0.6 (0.7-1.7); *SPE ALBUMIN 1.9 g/dL (2.9-4.4); *SPE ALPHA-1-GLOBULIN 0.3 g/dL (0.0-0.4); *SPE ALPHA-2-GLOBULIN 1.1 g/dL (0.4-1.0); *SPE GLOBULIN, TOTAL 3.2 g/dL (2.2-3.9); *SPE M-SPIKE Not Observed g/dL (Not Observed); *SPEGAMMA GLOBULIN 0.8 g/dL (0.4-1.8)
== END 2020-03-17 14:15 | DRG 291 ==
LOC: ER 08:01 → ICU 09:48 → MEDSG1 11:52 → ICU 12:00 → TELE 03-14 09:41
PROVIDERS: ADMIT Registered Nurse; ATTEND Internal Medicine
PROC: 5A09357 Assistance with Respiratory Ventilation, Less than 24 Consecutive Hours, Continuous Positive Airway Pressure (ICD-10-PCS; principal; 2020-03-13)
PROC: 5A09357 Assistance with Respiratory Ventilation, Less than 24 Consecutive Hours, Continuous Positive Airway Pressure (ICD-10-PCS; 2020-03-14)
DX: I13.0 Hypertensive heart and chronic kidney disease with heart failure and stage 1 through stage 4 chronic kidney disease, or unspecified chronic kidney disease (principal); J96.21 Acute and chronic respiratory failure with hypoxia; G93.41 Metabolic encephalopathy; I50.33 Acute on chronic diastolic (congestive) heart failure; J96.22 Acute and chronic respiratory failure with hypercapnia; N17.0 Acute kidney failure with tubular necrosis; E66.2 Morbid (severe) obesity with alveolar hypoventilation; Z68.42 Body mass index [BMI] 45.0-49.9, adult; I48.20 Chronic atrial fibrillation, unspecified; J44.1 Chronic obstructive pulmonary disease with (acute) exacerbation; N39.0 Urinary tract infection, site not specified; E87.4 Mixed disorder of acid-base balance; Z16.12 Extended spectrum beta lactamase (ESBL) resistance; E03.9 Hypothyroidism, unspecified; D53.9 Nutritional anemia, unspecified; E11.51 Type 2 diabetes mellitus with diabetic peripheral angiopathy without gangrene; E78.5 Hyperlipidemia, unspecified; E87.5 Hyperkalemia; G35 Multiple sclerosis; K21.9 Gastro-esophageal reflux disease without esophagitis; M19.90 Unspecified osteoarthritis, unspecified site; Z20.828 Contact with and (suspected) exposure to other viral communicable diseases; N32.81 Overactive bladder; N18.9 Chronic kidney disease, unspecified; Z79.4 Long term (current) use of insulin; Z79.01 Long term (current) use of anticoagulants; Z86.718 Personal history of other venous thrombosis and embolism; Z87.891 Personal history of nicotine dependence; Z98.84 Bariatric surgery status; G30.9 Alzheimer's disease, unspecified; E11.22 Type 2 diabetes mellitus with diabetic chronic kidney disease; Z87.440 Personal history of urinary (tract) infections; Z91.19 Patient's noncompliance with other medical treatment and regimen; Z66 Do not resuscitate; Z79.84 Long term (current) use of oral hypoglycemic drugs; B96.1 Klebsiella pneumoniae [K. pneumoniae] as the cause of diseases classified elsewhere
CPT/HCPCS: 36415; 36600; 71045-TC; 80048-TC; 80053-TC; 80061-TC; 80202-TC; 81001; 82550-TC; 82570-TC; 82728-TC; 82803-TC; 82962-TC; 83605-TC; 83615-TC; 83735-TC; 83880; 83970; 84100-TC; 84132-TC; 84155; 84155-TC; 84165; 84300-TC; 84439-TC; 84443-TC; 84484-TC; 85025-TC; 85378-TC; 85730-TC; 86140-TC; 87040-TC; 87081-TC; 87086-TC; 87186-TC; 92521; 92526; 93307-TC; 93970-TC; 94660; 94799-TC; 97530-TC; 99082-TC; A6403; C9803; G0378; J0692; J1650; J1815; J1940; J2185; J2930; J3370; J3475; J3490; J7030; J7050; J7060; U0003

== ENCOUNTER 2020-05-04 22:44 | Inpatient (IN) | payer MEDICARE, OTHER ==
[~2020-05-04] VITALS: Ht 177.8 cm; Wt 131.5 kg
[~2020-05-04 22:44] MED LIST changes: -ACET-73 PO; -ACET250T3 PO; +ALBU0.633 IH; -ALBU2.5V38 IH; +APIX5TAB PO; +ATOR10TA PO; -BIOTIN PO; +BROM1.7D9 EACHEYE; -BUME1TAB9 PO; -CRAN405C PO; -DILT240C88 PO; -GEMF600T5 PO; -GUAIFENESIN PO; +INSU100V3 SQ; -INSU100V42; +IPRA0.2S9 IH; -KETO5DRO83 EACHEYE; -LACT1CAP89 PO; -MAGN296S72 PO; +METF-442 PO; -METO-295 PO; +MULT-447 PO; -MULT1CAP34 PO; +NYST15CR15 TP; +NYST500P2 TD; -OMEP20CA15 PO; -OXYB10TA30 PO; +PANT40TA2 PO; -POLY17PO4 PO; +PROVIGIL PO; -SENN-261 PO; -SIMV40TA2 PO; -TEMA30CA PO; -ZINC1CAP3 PO
[2020-05-04 23:24] LABS: BASOPHILS % (AUTO) 0.7 % (0.0-2.0); EOSINOPHILS % (AUTO) 1.5 % (0.0-6.0); HEMATOCRIT 33 % (39-51); HEMOGLOBIN 10.1 g/dL (13.5-17.5); LYMPHOCYTES # (AUTO) 0.9 /CMM (0.8-4.8); LYMPHOCYTES % (AUTO) 14.8 % (20.0-44.0); MEAN CORPUSCULAR HGB CONC 31 g/dl (31.0-36.0); MEAN CORPUSCULAR VOLUME 98 fL (80-96); MONOCYTES # (AUTO) 0.7 /CMM (0.1-1.30); MONOCYTES % (AUTO) 11.9 % (2.0-12.0); NEUTROPHILS # (AUTO) 4.1 /CMM (1.8-8.9); NEUTROPHILS % (AUTO) 71.1 % (43.0-81.0); PLATELET COUNT (AUTO) 189 /CMM (150-450); RED BLOOD CELL COUNT(AUTO) 3.35 MIL/uL (4.5-6.0); WHITE BLOOD COUNT (AUTO) 5.8 K/uL (4.3-11.0)
[2020-05-04] MEDS ORDERED: DILTIAZEM HCL 25 MG IV ONE (23:29)
[2020-05-04] MEDS ORDERED: IV NS 0.9% 500 ML BAG IV ONE (23:30)
--- NOTE | 2020-05-04 23:30 | NUR ---
BIBEMS FROM [facility] C/O MORE ALTERED THAN NORMAL, LOW O2 SAT 85%. RECEIVED on 4L NC SATING 98 TO ER BED 5
--- NOTE | 2020-05-04 23:47 | NUR ---
CODE STROKE PER DR. FAROOQ
[2020-05-04 23:50] LABS: D-DIMER 1.9 mg/L(FEU (0.17-0.50)
[2020-05-04 23:53] LABS: ALANINE AMINOTRANSFERASE 8 U/L (12-78); ALBUMIN 1.8 g/dL (3.4-5.0); ALKALINE PHOSPHATASE 75 U/L (46-116); ASPARTATE AMINOTRANSFERASE 12 U/L (15-37); BILIRUBIN,DIRECT 0.1 mg/dL (0.0-0.2); BILIRUBIN,TOTAL 0.2 mg/dL (0.2-1.0); CALCIUM, SERUM 9.4 mg/dL (8.5-10.1); CARBON DIOXIDE 30 mmol/L (21-32); CHLORIDE 104 mmol/L (98-107); CREATININE 1.4 mg/dL (0.6-1.3); GLUCOSE 168 mg/dL (74-106); POTASSIUM 5.1 mmol/L (3.5-5.1); SODIUM SERUM 141 mmol/L (136-145); TOTAL PROTEIN, SERUM 6.9 g/dL (6.4-8.2); UREA NITROGEN, BLOOD 56 mg/dL (7-18)
--- NOTE | 2020-05-04 23:53 | NUR ---
DR. FAROOQ SPEAKING WITH [employer] NEURO
--- NOTE | 2020-05-04 23:55 | NUR ---
PT TAKEN TO RADIOLOGY FOR HEAD CT, NURSE AT BEDSIDE
--- NOTE | 2020-05-05 00:04 | NUR ---
SPOKE TO ER MD ABOUT SECOND ORDER ON EKG. MD CONFIRMED DUPLICATE ORDER AND ONLY NEEDED 1ST EKG.
--- NOTE | 2020-05-05 00:06 | NUR ---
DR. FAROOQ SPEAKING WITH RADIOLOGIST
[2020-05-05 00:18] LABS: CHOLESTEROL 167 mg/dL (<200); HDL CHOLESTEROL 41 mg/dL (40-60); LDL 100 mg/dL (0-99); TRIGLYCERIDES 136 mg/dL (30-150)
[2020-05-05] MEDS ORDERED: DEXAMETHASONE SOD PHOSPHATE 4 MG/ML VIAL ONE (00:20)
[2020-05-05] MEDS: DEXAMETHASONE SOD PHOSPHATE 6 MG in IV D5W 50 ML IV STA (00:26)
[2020-05-05 00:28] LABS: ABG BASE EXCESS -2.6 mmol/L; ABG OXYGEN SATURATION 97.6 % (92.0-98.5); ABG PCO2 86.6 mmHg (35.0-45.0); ABG PO2 111.9 mmHg (75.0-100.0); AaDO2 139.8 mmHg; COHb 1.2 % (0.5-1.5); MetHb 0.3 % (0.0-1.5); O2Hb 96.1 % (94.0-97.0); SITE, ABG Right Radial; VENT MODE, BG Simple Mask 7LPM
[2020-05-05] MEDS ORDERED: DILTIAZEM HCL IV 125 MG in IV D5W 100 ML IV ONE (00:30)
[2020-05-05] MEDS ORDERED: DILTIAZEM HCL 25 MG IV IV ONE (00:30)
--- NOTE | 2020-05-05 00:30 | NUR ---
PT PLACED ON BIPAP 40% 20/5 RATE OF 20, SATING AT 95
[2020-05-05] MEDS ORDERED: DILTIAZEM HCL 25 MG IV ONE (00:34)
[2020-05-05] MEDS ORDERED: DILTIAZEM HCL 50 MG IV ONE (00:34)
--- NOTE | 2020-05-05 00:36 | NUR ---
DR. FAROOQ SPEAKING WITH LONG (DAUGHTER) REGARDING PLAN OF CARE
[2020-05-05 00:42] LABS: SERUM AMMONIA 32 umol/L (11-32)
--- NOTE | 2020-05-05 01:41 | NUR ---
PT REMAINS IN BED RESTING COMFORTABLY TOLERATING BIPAP SETTINGS SATING AT 95-98%
[2020-05-05] MEDS ORDERED: DILTIAZEM HCL IV 125 MG in IV D5W 100 ML IV PRN (02:00)
--- NOTE | 2020-05-05 02:07 | NUR ---
DR. FAROOQ SPEAKING WITH DR. SPIVEY (ONCOLOGY COORDINATOR CARDIO)
[2020-05-05] MEDS ORDERED: AMIODARONE 150 MG in IV D5W 100 ML IV ONE (02:30)
[2020-05-05] MEDS ORDERED: AMIODARONE 450 MG in IV D5W 250 ML IV ONE ×4 (02:30)
[2020-05-05 02:46] LABS: ABG PH 7.229 (7.350-7.450); ABG PO2 118.3 mmHg (75.0-100.0); AaDO2 99.1 mmHg; COHb 0.8 % (0.5-1.5); MetHb 0.2 % (0.0-1.5); PEEP,BG 5 cm H2O; SITE, ABG Right Radial; VENT MODE, BG BiPAP 20/5 20 40%
[2020-05-05] MEDS ORDERED: AMIODARONE 150 MG/3 ML VIAL IV ONE (02:51)
[2020-05-05] MEDS ORDERED: IPRATROPIUM NEB FS 0.5 MG/2.5 ML AMPUL.NEB NEB ONE (03:00)
[2020-05-05] MEDS ORDERED: MORPHINE SULFATE INJ 2 MG/ML DISP.SYRIN ONE (03:31)
[2020-05-05] MEDS ORDERED: IPRATROPIUM NEB FS 0.5 MG/2.5 ML AMPUL.NEB ONE (03:40)
[2020-05-05] MEDS ORDERED: MORPHINE SULFATE INJ 2 MG/ML DISP.SYRIN IV PRN (04:00)
[2020-05-05 04:56] LABS: ABG BASE EXCESS -6.2 mmol/L; ABG OXYGEN SATURATION 98.6 % (92.0-98.5); ABG PCO2 49.5 mmHg (35.0-45.0); ABG PH 7.246 (7.350-7.450); ABG PO2 140.7 mmHg (75.0-100.0); AaDO2 87.6 mmHg; COHb 1.3 % (0.5-1.5); MetHb 0.3 % (0.0-1.5); PEEP,BG 5 cm H2O; SITE, ABG Right Radial; VENT MODE, BG BiPAP 20/5 20 40%
[2020-05-05] MEDS ORDERED: ACETAMINOPHEN 325 MG TABLET PO PRN (06:00)
[2020-05-05] MEDS ORDERED: ONDANSETRON HCL/PF 4 MG/2 ML VIAL IVP PRN (06:30)
[2020-05-05] MEDS ORDERED: DEXTROSE 50%-WATER 50 ML DISP.SYRIN IV PRN (06:30)
[2020-05-05 07:25] LABS: CALCIUM, SERUM 9.3 mg/dL (8.5-10.1); CARBON DIOXIDE 28 mmol/L (21-32); CHLORIDE 104 mmol/L (98-107); CREATININE 1.5 mg/dL (0.6-1.3); GLUCOSE 206 mg/dL (74-106); POTASSIUM 5.8 mmol/L (3.5-5.1); SODIUM SERUM 139 mmol/L (136-145); UREA NITROGEN, BLOOD 58 mg/dL (7-18)
[2020-05-05] MEDS: LEVOTHYROXINE SODIUM 50 MCG TABLET PO SCH (07:30)
[2020-05-05] MEDS: BLOOD SUGAR DIAGNOSTIC 1 EACH STRIP IN SCH ×4 (07:30→21:09)
--- NOTE | 2020-05-05 07:35 | NUR ---
report given to lilliam brizuela for carlos
--- NOTE | 2020-05-05 07:35 | NUR ---
RECEIVED REPORT FROM JOLENE LOPEZ FOR DENIS. PT IS AAOX2, ON BIPAP AND AMIODARONE DRIP. KEPT RESTED AND COMFORTABLE. WILL CONTINUE TO MONITOR.
--- NOTE | 2020-05-05 07:36 | NUR ---
PO MED NOT GIVEN PT FAILED SWALLOW EVAL AND ON BIPAP.
[2020-05-05 07:46] LABS: ALANINE AMINOTRANSFERASE 8 U/L (12-78); ALBUMIN 1.9 g/dL (3.4-5.0); ALKALINE PHOSPHATASE 77 U/L (46-116); ASPARTATE AMINOTRANSFERASE 13 U/L (15-37); BILIRUBIN,TOTAL 0.2 mg/dL (0.2-1.0); MAGNESIUM 2.2 mg/dL (1.8-2.4)
[2020-05-05 07:51] LABS: BASOPHILS % (AUTO) 0.2 % (0.0-2.0); EOSINOPHILS % (AUTO) 0.3 % (0.0-6.0); HEMATOCRIT 33 % (39-51); HEMOGLOBIN 10.2 g/dL (13.5-17.5); LYMPHOCYTES # (AUTO) 0.5 /CMM (0.8-4.8); LYMPHOCYTES % (AUTO) 8.5 % (20.0-44.0); MEAN CORPUSCULAR HGB CONC 31 g/dl (31.0-36.0); MEAN CORPUSCULAR VOLUME 100 fL (80-96); MONOCYTES # (AUTO) 0.1 /CMM (0.1-1.30); MONOCYTES % (AUTO) 2.6 % (2.0-12.0); NEUTROPHILS # (AUTO) 4.7 /CMM (1.8-8.9); NEUTROPHILS % (AUTO) 88.4 % (43.0-81.0); PLATELET COUNT (AUTO) 182 /CMM (150-450); RED BLOOD CELL COUNT(AUTO) 3.31 MIL/uL (4.5-6.0); WHITE BLOOD COUNT (AUTO) 5.3 K/uL (4.3-11.0)
[2020-05-05] MEDS: INSULIN REGULAR, HUMAN 100 UNIT/ML 3 ML VIAL SQ PRN ×3 (07:57→17:39)
[2020-05-05 08:45] LABS: IRON, SERUM 44 ug/dl (50-175); TOTAL IRON BINDING CAPACITY 220 ug/dl (250-450)
[2020-05-05 08:57] LABS: THYROID STIMULATING HORMONE 2.761 uIU/mL (0.358-3.74)
[2020-05-05] MEDS: APIXABAN 5 MG TABLET PO SCH ×2 (09:00→17:00)
[2020-05-05] MEDS: METOPROLOL TARTRATE 50 MG TABLET PO SCH ×2 (09:00→21:00)
[2020-05-05] MEDS: DOCUSATE SODIUM 100 MG CAPSULE PO SCH ×2 (09:00→17:00)
[2020-05-05] MEDS: MULTIVIT W/MINERALS 1 TAB TABLET PO SCH (09:00)
[2020-05-05] MEDS: ASCORBIC ACID 500 MG TABLET PO SCH (09:00)
[2020-05-05] MEDS: FAMOTIDINE/PF INJ 20 MG/2 ML VIAL IV SCH ×2 (09:15→21:21)
[2020-05-05] MEDS ORDERED: FAMOTIDINE/PF INJ 20 MG/2 ML VIAL IV ONE ×2 (09:17→21:11)
[2020-05-05] MEDS ORDERED: methylPREDNISolone SOD SUCC 40 MG/ML VIAL ONE ×2 (11:10→17:37)
[2020-05-05] MEDS: methylPREDNISolone SOD SUCC 125 MG/2ML VIAL IV SCH ×2 (11:11→17:37)
[2020-05-05] MEDS: IPRATROPIUM BROMIDE 14 GM INHALER (or 12.9 GM) IH SCH ×2 (11:54→18:09)
--- NOTE | 2020-05-05 12:34 | NUR ---
PT BG 162. INSULIN NOT GIVEN PT ON UNABLE TO EAT AND ON BIPAP.
[2020-05-05] MEDS: AMIODARONE 450 MG in IV D5W 250 ML IV PRN (14:14)
--- NOTE | 2020-05-05 18:05 | NUR ---
Jose D albright in ED - 05/05/20 at 1818 by MARY KATE ATROVENT NOT GIVEN MEDS NOT AVAILABLE PER LENNY AT PHARMACY.
[2020-05-05] MEDS ORDERED: HEPARIN SODIUM, PORCINE 5000 UNITS/1 ML VIAL ONE (18:10)
[2020-05-05 18:12] LABS: ABG BASE EXCESS -4.4 mmol/L; ABG OXYGEN SATURATION 97.4 % (92.0-98.5); ABG PCO2 47.2 mmHg (35.0-45.0); ABG PO2 105.3 mmHg (75.0-100.0); AaDO2 53.1 mmHg; COHb 0.7 % (0.5-1.5); MetHb 0.4 % (0.0-1.5); O2Hb 96.3 % (94.0-97.0); SITE, ABG Right Radial; VENT MODE, BG ST 20/5 30%
[2020-05-05] MEDS: HEPARIN SODIUM, PORCINE 5000 UNITS/1 ML VIAL SQ SCH (18:12)
[2020-05-05] MEDS: ATORVASTATIN 10 MG TABLET PO SCH (21:10)
[2020-05-05] MEDS ORDERED: Medication Not On Formulary EA (Melatonin 3 MG) PO SCH (22:00)
[2020-05-06] MEDS: IPRATROPIUM BROMIDE 14 GM INHALER (or 12.9 GM) IH SCH ×4 (00:27→17:06)
--- NOTE | 2020-05-06 00:30 | NUR ---
per Dr. Mario sexton to continue amiodarone drip past 24hr to keep hr below 100
[2020-05-06 04:56] LABS: ABG BASE EXCESS -3.5 mmol/L; ABG OXYGEN SATURATION 98.7 % (92.0-98.5); ABG PCO2 57.2 mmHg (35.0-45.0); ABG PH 7.244 (7.350-7.450); ABG PO2 195.9 mmHg (75.0-100.0); AaDO2 110.8 mmHg; COHb 0.3 % (0.5-1.5); MetHb 0.3 % (0.0-1.5); O2Hb 98.1 % (94.0-97.0); SITE, ABG Right Radial; VENT MODE, BG mask 8 LPM
[2020-05-06] MEDS ORDERED: HEPARIN SODIUM, PORCINE 5000 UNITS/1 ML VIAL ONE (06:58)
[2020-05-06] MEDS: HEPARIN SODIUM, PORCINE 5000 UNITS/1 ML VIAL SQ SCH (07:00)
[2020-05-06] MEDS: AMIODARONE 450 MG in IV D5W 250 ML IV PRN ×2 (07:19→23:15)
--- NOTE | 2020-05-06 07:20 | NUR ---
Received patient in bed, asleep, on BIPAP tolerating well, 02 sat 98%, connected to the monitor and pulse ox. Amiodarone drip infusing at 0.5mg, heart rhythm stil afib with heart rate of 129. Kept comfortable, will continue to monitor accordingly.
[2020-05-06] MEDS: LEVOTHYROXINE SODIUM 50 MCG TABLET PO SCH (07:30)
[2020-05-06] MEDS: BLOOD SUGAR DIAGNOSTIC 1 EACH STRIP IN SCH ×4 (07:42→22:30)
[2020-05-06] MEDS: INSULIN REGULAR, HUMAN 100 UNIT/ML 3 ML VIAL SQ PRN ×3 (07:44→23:15)
[2020-05-06] MEDS ORDERED: methylPREDNISolone SOD SUCC 40 MG/ML VIAL ONE ×2 (08:34→16:37)
[2020-05-06] MEDS ORDERED: FAMOTIDINE/PF INJ 20 MG/2 ML VIAL IV ONE ×2 (08:34→20:51)
[2020-05-06] MEDS ORDERED: METOPROLOL TARTRATE 50 MG TABLET ONE (08:34)
[2020-05-06] MEDS: methylPREDNISolone SOD SUCC 125 MG/2ML VIAL IV SCH ×2 (08:49→17:06)
[2020-05-06] MEDS: FAMOTIDINE/PF INJ 20 MG/2 ML VIAL IV SCH ×2 (08:49→21:00)
[2020-05-06] MEDS: DOCUSATE SODIUM 100 MG CAPSULE PO SCH ×2 (08:50→16:35)
[2020-05-06] MEDS: MULTIVIT W/MINERALS 1 TAB TABLET PO SCH (08:50)
[2020-05-06] MEDS: METOPROLOL TARTRATE 50 MG TABLET PO SCH ×2 (08:50→21:00)
[2020-05-06] MEDS: ASCORBIC ACID 500 MG TABLET PO SCH (08:50)
--- NOTE | 2020-05-06 11:40 | NUR ---
This SW consulted with ED RN Elian regarding this patient. Elian reported patient is alert and oriented x2 and is on BIPAP, patient at this time is unable to be interviewed. Plan: SW to follow-up with patient's next of kin/responsible democrat to gather collateral information. SW will follow-up with patient when patient is alert and oriented for an interview. SW remains available for all needs regarding this patient.
--- NOTE | 2020-05-06 12:33 | NUR ---
covid swab collected and sent to lab
--- NOTE | 2020-05-06 13:44 | NUR ---
RIMMA confirmed with interdisciplinary team patient resides at [facility] [address] [place] [id number] . SW to follow-up with [facility]. RIMMA remains available for all needs regarding this patient.
[2020-05-06] MEDS ORDERED: HEPARIN INFUSION/D5W 500 ML IV PRN (14:00)
[2020-05-06] MEDS ORDERED: METOPROLOL TARTRATE INJ 5 MG/5 ML AMPUL IVP ONE (15:00)
--- NOTE | 2020-05-06 15:03 | NUR ---
SW spoke with JOLENE Fay from [facility] [address] [place], [place] [id number] . Per JOLENE Fay, patient was brought in from facility with altered mental status and some shortness of breath. Per Nya FERNÁNDEZ, patient is normally alert and oriented x2-3 with some episodes of confusion. JOLENE Fay confirmed patient's daughter contact information Althea Luke [phone] and also provided this SW with patient's sister information [phone]. Plan: SW to follow-up with patient to conduct SS assessment and PHQ-9 per stroke protocol. SW remains available for all needs regarding this patient. Addendum: 05/06/20 at 1556 by KATHI SHANKS Patient's sister Josefina [phone]
--- NOTE | 2020-05-06 15:15 | NUR ---
Started heparin drip @ 36ml/hr as ordered by MD as non ACS.
[2020-05-06] MEDS ORDERED: METOPROLOL TARTRATE INJ 5 MG/5 ML AMPUL ONE (15:18)
[2020-05-06 15:38] LABS: WHITE BLOOD COUNT (AUTO) 4.6 K/uL (4.3-11.0)
[2020-05-06 15:52] LABS: BASOPHILS % (AUTO) 0.1 % (0.0-2.0); HEMATOCRIT 35 % (39-51); HEMOGLOBIN 10.9 g/dL (13.5-17.5); LYMPHOCYTES # (AUTO) 0.5 /CMM (0.8-4.8); LYMPHOCYTES % (AUTO) 10.2 % (20.0-44.0); MEAN CORPUSCULAR HGB CONC 31 g/dl (31.0-36.0); MEAN CORPUSCULAR VOLUME 97 fL (80-96); MONOCYTES # (AUTO) 0.2 /CMM (0.1-1.30); MONOCYTES % (AUTO) 4.1 % (2.0-12.0); NEUTROPHILS # (AUTO) 3.9 /CMM (1.8-8.9); NEUTROPHILS % (AUTO) 85.6 % (43.0-81.0); PLATELET COUNT (AUTO) 190 /CMM (150-450); RED BLOOD CELL COUNT(AUTO) 3.56 MIL/uL (4.5-6.0)
[2020-05-06 16:12] LABS: CALCIUM, SERUM 9.5 mg/dL (8.5-10.1); CARBON DIOXIDE 28 mmol/L (21-32); CHLORIDE 104 mmol/L (98-107); CREATININE 1.4 mg/dL (0.6-1.3); GLUCOSE 207 mg/dL (74-106); POTASSIUM 5.6 mmol/L (3.5-5.1); SODIUM SERUM 140 mmol/L (136-145); UREA NITROGEN, BLOOD 55 mg/dL (7-18)
[2020-05-06] MEDS: IV D5/ 0.9% NACL 1,000 ML IV PRN ×2 (17:07→23:30)
--- NOTE | 2020-05-06 19:19 | NUR ---
report given to Sara FERNÁNDEZ for carlos
--- NOTE | 2020-05-06 19:20 | NUR ---
rec'd report from JOLENE Plummer for carlos
--- NOTE | 2020-05-06 20:08 | NUR ---
SANDI CALLOWAY, SISTER: .
--- NOTE | 2020-05-06 20:26 | NUR ---
gave report to JOLENE Ferguson for carlos
[2020-05-06] MEDS: ATORVASTATIN 10 MG TABLET PO SCH (22:00)
[2020-05-07] MEDS: IPRATROPIUM BROMIDE 14 GM INHALER (or 12.9 GM) IH SCH ×4 (00:30→18:00)
[2020-05-07] MEDS ORDERED: METOPROLOL TARTRATE INJ 5 MG/5 ML AMPUL ONE ×2 (01:48→08:42)
[2020-05-07] MEDS: METOPROLOL TARTRATE INJ 5 MG/5 ML AMPUL IVP PRN ×2 (01:55→08:48)
--- NOTE | 2020-05-07 03:32 | NUR ---
LAB AT BEDSIDE
[2020-05-07 04:36] LABS: HEMATOCRIT 32 % (39-51); LYMPHOCYTES # (AUTO) 0.5 /CMM (0.8-4.8); LYMPHOCYTES % (AUTO) 9.6 % (20.0-44.0); MEAN CORPUSCULAR HGB CONC 32 g/dl (31.0-36.0); MEAN CORPUSCULAR VOLUME 96 fL (80-96); MONOCYTES # (AUTO) 0.6 /CMM (0.1-1.30); MONOCYTES % (AUTO) 11.1 % (2.0-12.0); NEUTROPHILS # (AUTO) 4.3 /CMM (1.8-8.9); NEUTROPHILS % (AUTO) 79.3 % (43.0-81.0); PLATELET COUNT (AUTO) 179 /CMM (150-450); RED BLOOD CELL COUNT(AUTO) 3.28 MIL/uL (4.5-6.0); WHITE BLOOD COUNT (AUTO) 5.5 K/uL (4.3-11.0)
[2020-05-07 05:01] LABS: CALCIUM, SERUM 9.6 mg/dL (8.5-10.1); CREATININE 1.3 mg/dL (0.6-1.3); MAGNESIUM 2.1 mg/dL (1.8-2.4); PHOSPHORUS 2.8 mg/dL (2.5-4.9); POTASSIUM 4.4 mmol/L (3.5-5.1)
--- NOTE | 2020-05-07 07:04 | NUR ---
gave report to JOLENE Plummer for carlos
--- NOTE | 2020-05-07 07:20 | NUR ---
Received report from night RN, patient in bed, asleep, still on heparin on 1500units and amiodarone 0.5mg drip, connected to the monitor and pulse ox. On bipap machine 02 sat 98%. Will continue to monitor accordingly. Addendum: 05/07/20 at 1225 by SEAN heparin drip on hold due to result of PTPTT 131.2 this morning at 330am.
[2020-05-07] MEDS: LEVOTHYROXINE SODIUM 50 MCG TABLET PO SCH (07:30)
[2020-05-07] MEDS: BLOOD SUGAR DIAGNOSTIC 1 EACH STRIP IN SCH ×4 (08:21→21:28)
[2020-05-07] MEDS: INSULIN REGULAR, HUMAN 100 UNIT/ML 3 ML VIAL SQ PRN ×4 (08:23→21:32)
[2020-05-07] MEDS: METOPROLOL TARTRATE 50 MG TABLET PO SCH ×2 (08:24→21:16)
[2020-05-07] MEDS: DOCUSATE SODIUM 100 MG CAPSULE PO SCH ×2 (08:24→16:50)
[2020-05-07] MEDS: ASCORBIC ACID 500 MG TABLET PO SCH (08:24)
[2020-05-07] MEDS: MULTIVIT W/MINERALS 1 TAB TABLET PO SCH (08:24)
[2020-05-07] MEDS ORDERED: methylPREDNISolone SOD SUCC 40 MG/ML VIAL ONE (08:30)
--- NOTE | 2020-05-07 08:30 | NUR ---
RT at bedside and took patient on bipap and changed to 4lpm via NC, 02 sat 96%, tolerating well.
[2020-05-07] MEDS ORDERED: FAMOTIDINE/PF INJ 20 MG/2 ML VIAL IV ONE (08:31)
[2020-05-07] MEDS: FAMOTIDINE/PF INJ 20 MG/2 ML VIAL IV SCH ×2 (08:49→21:15)
[2020-05-07] MEDS: methylPREDNISolone SOD SUCC 125 MG/2ML VIAL IV SCH ×2 (08:49→16:49)
[2020-05-07] MEDS: AMIODARONE 450 MG in IV D5W 250 ML IV PRN (10:17)
[2020-05-07 10:48] LABS: ABG BASE EXCESS -2.9 mmol/L; ABG OXYGEN SATURATION 99.1 % (92.0-98.5); ABG PCO2 49.2 mmHg (35.0-45.0); ABG PO2 265.7 mmHg (75.0-100.0); COHb 0.2 % (0.5-1.5); MetHb 0.4 % (0.0-1.5); O2Hb 98.5 % (94.0-97.0); SITE, ABG Right Radial
--- NOTE | 2020-05-07 14:42 | NUR ---
Spoke to Dr. Serrano (guest services attendant) regarding patient PT/PTT result and ordered to discontinue Heparin drip and start patient on Lovenox 100mg SQ BID to start tonight @1700. All orders carried out and noted.
--- NOTE | 2020-05-07 14:46 | NUR ---
report given to Tracey FERNÁNDEZ for carlos
--- NOTE | 2020-05-07 15:31 | NUR ---
wheeled patient via gurney accompanied by RN and emt in no distress.
--- NOTE | 2020-05-07 16:02 | NUR ---
received patient from er sleepy but arousable,on nasal canula and on amio drip.
[2020-05-07 16:12] VITALS: BP 106/45
--- NOTE | 2020-05-07 16:37 | NUR ---
limited photo taken secondary to patient develop sob upon turning.will request wound care consult per md.
--- NOTE | 2020-05-07 16:38 | NUR ---
limited nursing assessment done pt. c/o sob upon repositioning.
[2020-05-07] MEDS: IV D5/ 0.9% NACL 1,000 ML IV PRN (16:49)
[2020-05-07] MEDS: ENOXAPARIN SODIUM 100 MG/ML DISP.SYRIN SQ SCH (16:49)
--- NOTE | 2020-05-07 16:50 | NUR ---
patient altered unable to tolerate po meds.
[2020-05-07 17:31] LABS: C-REACTIVE PROTEIN 1.8 mg/dL (0.0-0.9)
--- NOTE | 2020-05-07 17:43 | NUR ---
patient more awake now asking for food,dinner served with aspiration precaution,able to swallow without difficulty per md ok to feed.
--- NOTE | 2020-05-07 18:13 | NUR ---
will endorse to shift supervisor melting for continuity of wound photo admission.
--- NOTE | 2020-05-07 19:30 | NUR ---
RN NOTES RECEIVED PATIENT IN BED AOX2-3, WITH PERIODS OF CONFUSION. BREATHING EVEN NON LABORED, CONTINUES ON O2 4L VIA NC SATING 97-98% AT THIS TIME. NO S/S OF ACUTE DISTRESS NOTED. TELE MONITOR READING CONTROLLED A-FIB HE IN 122'S. IV SITES INTACT PATENT AND FLUSHES WELL. CONTINUES ON AMIO DRIP 0.5 TOLERATING WELL. NO S /S OF SWELLING , BLEEDING, INFILTRATION NOTED. ALL SAFETY MEASURES IN PLACE, CALL LIGHT WITHIN REACH. SIDE RAILS UPX2. WILL CONTINUES TO MONITOR FOR DENIS.
[2020-05-07 20:00] VITALS: BP 112/86
[2020-05-07] MEDS: ATORVASTATIN 10 MG TABLET PO SCH (21:15)
[2020-05-08] VITALS: BP 105/76
[2020-05-08 04:00] VITALS: BP 121/78
[2020-05-08 06:05] LABS: HEMATOCRIT 32 % (39-51); HEMOGLOBIN 10.2 g/dL (13.5-17.5); LYMPHOCYTES # (AUTO) 0.4 /CMM (0.8-4.8); MEAN CORPUSCULAR HGB CONC 31 g/dl (31.0-36.0); MEAN CORPUSCULAR VOLUME 98 fL (80-96); MONOCYTES # (AUTO) 0.4 /CMM (0.1-1.30); MONOCYTES % (AUTO) 7.4 % (2.0-12.0); NEUTROPHILS # (AUTO) 5.1 /CMM (1.8-8.9); NEUTROPHILS % (AUTO) 86.6 % (43.0-81.0); PLATELET COUNT (AUTO) 172 /CMM (150-450); RED BLOOD CELL COUNT(AUTO) 3.33 MIL/uL (4.5-6.0); WHITE BLOOD COUNT (AUTO) 5.9 K/uL (4.3-11.0)
--- NOTE | 2020-05-08 06:49 | NUR ---
RN NOTES NO CHANGES NOTED DURING SHIFT PATIENT CONTINUES ON AMIO DRIP TOLERATING WELL. NO S/S OF ACUTE DISTRESS NOTED. WOUND PICTURE WAS TAKEN AND PLACED IT IN THE CHART. IV SITES INTACT PATENT AND FLUSHES WELL. KEPT CLEAN DRY AND COMFORTABLE. ALL SAFETY MEASURES IN PLACE, CALL LIGHT WITHIN REACH. SIDE RAILS UPX2. WILL ENDORSE TO AM NURSE FOR DENIS.
[2020-05-08 07:24] LABS: CREATININE 1.1 mg/dL (0.6-1.3); MAGNESIUM 2.9 mg/dL (1.8-2.4); PHOSPHORUS 3.7 mg/dL (2.5-4.9); POTASSIUM 4.4 mmol/L (3.5-5.1)
--- NOTE | 2020-05-08 07:30 | NUR ---
SUPPLY CHAIN ENGINEER OPENING NOTES PATIENT RECEIVED IN BED A&OX3, TELE READING A-FIB CONTROLLED, ON AMIODARONE DRIP. PATIENT IS ON O2 THERAPY VIA NC AT 4 LPM. TOLERATING WELL. NO RESPIRATORY DISTRESS NOTED. LAC #20, RIGHT HAND #20, LEFT WRIST #20 INTACT AND PATENT. SAFETY PRECAUTIONS IMPLEMENTED. BED IN LOWEST POSITION, SIDE RAILS UP X2, CALL LIGHT WITHIN REACH. WILL CONTINUE TO MONITOR AND PROVIDE CARE THROUGHOUT SHIFT.
[2020-05-08] MEDS: LEVOTHYROXINE SODIUM 50 MCG TABLET PO SCH (07:48)
[2020-05-08] MEDS: INSULIN REGULAR, HUMAN 100 UNIT/ML 3 ML VIAL SQ PRN ×4 (08:06→21:57)
[2020-05-08] MEDS: BLOOD SUGAR DIAGNOSTIC 1 EACH STRIP IN SCH ×4 (08:06→21:52)
--- NOTE | 2020-05-08 08:10 | NUR ---
WOUND CARE CONSULT: REVIEWED CHART, NURSING DOCUMENTATION AND PHOTOS WHICH INDICATE LOWER EXTREMITY WOUNDS WELL SACRAL AND BUTTOCK WOUNDS, PRESENT ON ADMISSION. DR HOFF AND DR PERALTA TO FOLLOW FOR WOUND TREATMENT PLAN (NOTIFIED OF CONSULT REQUESTS). RECOMMENDATIONS MADE FOR SKIN PROTECTION. DISCUSSED WITH NURSING STAFF. FIRST STEP LOW AIRLOSS MATTRESS ON ORDER. MD IN AGREEMENT WITH PLAN OF CARE.
[2020-05-08 08:24] VITALS: BP 116/74
[2020-05-08] MEDS ORDERED: Z GUARD REMEDY 2 OZ OINT TP PRN (08:30)
[2020-05-08] MEDS: DOCUSATE SODIUM 100 MG CAPSULE PO SCH ×2 (09:43→17:36)
[2020-05-08] MEDS: METOPROLOL TARTRATE 50 MG TABLET PO SCH ×2 (09:43→21:45)
[2020-05-08] MEDS: MULTIVIT W/MINERALS 1 TAB TABLET PO SCH (09:44)
[2020-05-08] MEDS: ASCORBIC ACID 500 MG TABLET PO SCH (09:44)
[2020-05-08] MEDS: methylPREDNISolone SOD SUCC 125 MG/2ML VIAL IV SCH ×2 (09:44→17:37)
[2020-05-08] MEDS: FAMOTIDINE/PF INJ 20 MG/2 ML VIAL IV SCH ×2 (09:44→21:46)
[2020-05-08] MEDS: ENOXAPARIN SODIUM 100 MG/ML DISP.SYRIN SQ SCH (09:45)
[2020-05-08] MEDS: Z GUARD REMEDY 2 OZ OINT TP SCH (09:51)
[2020-05-08] MEDS: AMIODARONE HCL 200 MG TABLET PO SCH ×2 (12:28→21:45)
[2020-05-08 12:42] VITALS: BP 102/68
--- NOTE | 2020-05-08 12:49 | NUR ---
Social Service Consult: Social consult request by to do a stroke assessment for a 79 year old male. SW met with pt at [facility] in bed room 105-TD/1 and conducted an assessment. . Pt made poor eye contact during the assessment. Pt. alert and oriented x3 (time, place, self,). Pt appears to be in an anxious mood with distressed affect. Pt. slightly slurred speech with low spoken voice. Pt states he does not know the reason for being in the hospital. Pt. denies suicidal and homicidal ideation. Pt denies any visual or auditory hallucinations as well. Pt. stated he has no Hx. mental health & no psychotropic medications. Pt denies being under the influence of any substance at the current time. Pt. appear ungroomed (dirty nails) and had appropriate attire. Patient appears to be nonambulatory and needs assistance. Pt states having a support system with the daughter, (Althea Luke , ). SW did a stroke assessment with a score of (PHQ9- 3 minimal depression). Pt does not need psychiatric consult. SW stated feeling sad due to being in the hospital. SW still gave resources with the stroke packet. Plan: SW gave the proper resources to the patient with the stroke packet. Case management will follow up with living arrangements at [facility] [phone] (Althea Mcdermott, daughter [phone]) to return after discharge.
--- NOTE | 2020-05-08 14:17 | NUR ---
CLARIFIED POLST WITH JUAN DOTYI PER POLST AND OBTAINED LOZENGES FOR SORE THROAT PER PATIENT REQUEST.
[2020-05-08] MEDS: MENTHOL/CETYLPYRD (CEPACOL) 1 LOZ LOZENGE PO PRN ×2 (14:48→22:52)
[2020-05-08 16:00] VITALS: BP 121/78
[2020-05-08] MEDS: APIXABAN 5 MG TABLET PO SCH (17:00)
--- NOTE | 2020-05-08 18:00 | NUR ---
MRP CONTROLLER NOTES PATIENT BROUGHT VIA BED. A/O X3. AFEBRILE. NO SOB NOTED. NO S/SX OF RESPIRATORY DISTRESS. BP 126/73 P3 103 RR 16 TEMP 98.3 SA02 100%. NC 4L O2. SAFETY MEASURES MAINTAINED. BED IN LOWEST POSITION, LOCKED. SIDE RAILS UP X2. CALL LIGHT WITHIN REACH. WILL ENDORSE TO NIGHT FOR DENIS.
--- NOTE | 2020-05-08 18:00 | NUR ---
BED SIDE REPORT GIVEN TO ANNITA (JOLENE). PT IN STABLE CONDITION.
--- NOTE | 2020-05-08 19:15 | NUR ---
HOME ADMINISTRATOR NOTE: RECEIVED PATIENT IN BED AWAKE, A/OX3 WITH PERIODS OF FORGETFULNESS. ABLE TO VERBALIZE NEEDS. NO S/SX OF ACUTE RESPIRATORY DISTRESS NOTED. IV ACCESS ON LAC #20G, L WRIST @20 AND RIGHT HAND #20G PATENT AND INTACT. PATIENT USES URINAL. DENIES PAIN OR DISCOMFORT AT THIS TIME. SAFETY PRECAUTIONS IN PLACE. CALL LIGHT WITHIN REACH. WILL CONTINUE TO MONITOR PATIENT'S SAFETY.
[2020-05-08 20:00] VITALS: BP 120/69
[2020-05-08] MEDS: ATORVASTATIN 10 MG TABLET PO SCH (21:46)
[2020-05-09] VITALS: BP 113/69
[2020-05-09 00:05] VITALS: BP 118/75
[2020-05-09 04:00] VITALS: BP 120/73
[2020-05-09] MEDS: INSULIN REGULAR, HUMAN 100 UNIT/ML 3 ML VIAL SQ PRN ×3 (06:47→12:22)
--- NOTE | 2020-05-09 06:54 | NUR ---
COMPLAINTS COORDINATOR CLOSING NOTES: PATIENT IN BED AWAKE, A/OX3 WITH PERIODS OF FORGETFULNESS. ABLE TO VERBALIZE NEEDS. NO S/SX OF ACUTE RESPIRATORY DISTRESS NOTED. IV ACCESS ON LAC #20G, L WRIST @20 AND RIGHT HAND #20G PATENT AND INTACT. REPOSITIONED PT FOR COMFORT. DENIES PAIN OR DISCOMFORT AT THIS TIME. SAFETY PRECAUTIONS IN PLACE. BED IN LOWEST POSITION. SIDE RAILS X2. CALL LIGHT WITHIN REACH. WILL ENDORSE TO DAY SHIFT NURSE FOR CONTINUITY OF CARE.
[2020-05-09 08:00] VITALS: BP 128/67
[2020-05-09] MEDS: BLOOD SUGAR DIAGNOSTIC 1 EACH STRIP IN SCH ×2 (08:00→12:21)
[2020-05-09] MEDS: MULTIVIT W/MINERALS 1 TAB TABLET PO SCH (08:54)
[2020-05-09] MEDS: ASCORBIC ACID 500 MG TABLET PO SCH (08:54)
[2020-05-09] MEDS: DOCUSATE SODIUM 100 MG CAPSULE PO SCH (08:54)
[2020-05-09] MEDS: LEVOTHYROXINE SODIUM 50 MCG TABLET PO SCH (08:54)
[2020-05-09] MEDS: methylPREDNISolone SOD SUCC 125 MG/2ML VIAL IV SCH (08:55)
[2020-05-09] MEDS: AMIODARONE HCL 200 MG TABLET PO SCH (08:55)
[2020-05-09] MEDS: FAMOTIDINE/PF INJ 20 MG/2 ML VIAL IV SCH (08:56)
[2020-05-09] MEDS: METOPROLOL TARTRATE 50 MG TABLET PO SCH (08:56)
[2020-05-09] MEDS ORDERED: HYDROGEL DRESSING 90 GM TUBE TP SCH (09:00)
[2020-05-09] MEDS: APIXABAN 5 MG TABLET PO SCH (09:07)
[2020-05-09] MEDS: Z GUARD REMEDY 2 OZ OINT TP SCH (09:20)
[2020-05-09 12:00] VITALS: BP 113/72
[2020-05-09 16:00] VITALS: BP 103/72
--- NOTE | 2020-05-09 20:18 | NUR ---
AM SHIFT SUMMARY. PATIENT IN BED. A/O X 3. FORGETFUL AT TIMES. NO S/SX OF RESPIRATORY DISTRESS. NC 4L OF 02. WOUNDS KEPT CLEAN AND DRY. ROUTINE MEDS WERE GIVEN ORDERED. SAFETY MEASURES MAINTAINED. BED IN LOWEST POSITION, LOCKED. SIDE RAILS UP X 2. CALL LIGHT WITHIN REACH. PATIENT IS DISCHARGED TO SNF.
== END 2020-05-09 18:06 | DRG 166 ==
LOC: ER 22:45 → UNDOADMIN 05-05 01:20 → TRANSITION 05-05 01:20 → ICU 05-06 19:57 → TRANSITION 05-07 14:38 → TELE-TD 05-07 14:38 → TELE1 05-08 09:53 → TELE 05-08 17:48 → UNDODISIN 05-09 18:06
PROVIDERS: ADMIT Internal Medicine
PROC: 0JBP0ZZ Excision of Left Lower Leg Subcutaneous Tissue and Fascia, Open Approach (ICD-10-PCS; principal; 2020-05-09)
DX: J96.22 Acute and chronic respiratory failure with hypercapnia (principal); N17.0 Acute kidney failure with tubular necrosis; E43 Unspecified severe protein-calorie malnutrition; G92 Toxic encephalopathy; J44.1 Chronic obstructive pulmonary disease with (acute) exacerbation; I13.0 Hypertensive heart and chronic kidney disease with heart failure and stage 1 through stage 4 chronic kidney disease, or unspecified chronic kidney disease; E66.2 Morbid (severe) obesity with alveolar hypoventilation; Z68.41 Body mass index [BMI] 40.0-44.9, adult; D68.69 Other thrombophilia; L97.829 Non-pressure chronic ulcer of other part of left lower leg with unspecified severity; L97.429 Non-pressure chronic ulcer of left heel and midfoot with unspecified severity; L97.419 Non-pressure chronic ulcer of right heel and midfoot with unspecified severity; L97.319 Non-pressure chronic ulcer of right ankle with unspecified severity; J96.21 Acute and chronic respiratory failure with hypoxia; Z86.718 Personal history of other venous thrombosis and embolism; E78.5 Hyperlipidemia, unspecified; E11.22 Type 2 diabetes mellitus with diabetic chronic kidney disease; E88.09 Other disorders of plasma-protein metabolism, not elsewhere classified; E87.5 Hyperkalemia; G30.9 Alzheimer's disease, unspecified; F02.80 Dementia in other diseases classified elsewhere, unspecified severity, without behavioral disturbance, psychotic disturbance, mood disturbance, and anxiety; G35 Multiple sclerosis; Z79.01 Long term (current) use of anticoagulants; Z20.822 Contact with and (suspected) exposure to COVID-19; Z98.84 Bariatric surgery status; Z87.891 Personal history of nicotine dependence; E03.9 Hypothyroidism, unspecified; I50.9 Heart failure, unspecified; Z86.16 Personal history of COVID-19; E11.51 Type 2 diabetes mellitus with diabetic peripheral angiopathy without gangrene; I70.248 Atherosclerosis of native arteries of left leg with ulceration of other part of lower leg; I70.244 Atherosclerosis of native arteries of left leg with ulceration of heel and midfoot; I70.234 Atherosclerosis of native arteries of right leg with ulceration of heel and midfoot; I70.233 Atherosclerosis of native arteries of right leg with ulceration of ankle; Z79.4 Long term (current) use of insulin; L89.156 Pressure-induced deep tissue damage of sacral region; L89.316 Pressure-induced deep tissue damage of right buttock; I48.0 Paroxysmal atrial fibrillation
CPT/HCPCS: 36415; 36600; 70450-TC; 71045-TC; 80048-TC; 80053-TC; 80061-TC; 80076-TC; 82140-TC; 82550-TC; 82728-TC; 82803-TC; 82962-TC; 83540-TC; 83605-TC; 83615-TC; 83735-TC; 83880; 84100-TC; 84443-TC; 84484-TC; 85025-TC; 85378-TC; 85385-TC; 85610-TC; 85730-TC; 86140-TC; 87040-TC; 87081-TC; 92526; 92611-TC; 94660; 94760-TC; 94799-TC; A4217; A6248; A6253; G0378; J0282; J1100; J1644; J1650; J1815; J2270; J2920; J2930; J3490; J7042; J7060; J7070; U0003

== ENCOUNTER 2020-05-14 10:33 | Inpatient (IN) | payer MEDICARE, OTHER ==
[~2020-05-14] VITALS: Ht 180.3 cm; Wt 146.1 kg
--- NOTE | 2020-05-14 10:33 | NUR ---
PT JAMEE FROM [facility]. C/O MORE ALTERED THAN USUAL. PT IS AAOX1, NOT IN RESPIRATORY DISTRESS, HOOKED TO PEOPLESOFT ANALYST, KEPT RESTED AND COMFORTABLE. WILL CONTINUE TO MONITOR.
--- NOTE | 2020-05-14 10:50 | NUR ---
IV LINE ESTABLISHED BLOOD DRAWN AND SENT TO LAB.
--- NOTE | 2020-05-14 10:58 | NUR ---
URINE SPECIMEN COLLECTED AND SENT TO LAB.
[2020-05-14] MEDS ORDERED: IV NS 0.9% 1,000 ML BAG IV ONE (11:00)
[2020-05-14 11:25] LABS: BASOPHILS % (AUTO) 0.2 % (0.0-2.0); EOSINOPHILS % (AUTO) 1.8 % (0.0-6.0); HEMATOCRIT 23 % (39-51); HEMOGLOBIN 7.1 g/dL (13.5-17.5); LYMPHOCYTES # (AUTO) 0.5 /CMM (0.8-4.8); LYMPHOCYTES % (AUTO) 2.2 % (20.0-44.0); MEAN CORPUSCULAR HGB CONC 31 g/dl (31.0-36.0); MEAN CORPUSCULAR VOLUME 97 fL (80-96); MONOCYTES # (AUTO) 1.7 /CMM (0.1-1.30); MONOCYTES % (AUTO) 6.9 % (2.0-12.0); NEUTROPHILS # (AUTO) 21.4 /CMM (1.8-8.9); NEUTROPHILS % (AUTO) 88.9 % (43.0-81.0); PLATELET COUNT (AUTO) 153 /CMM (150-450); RED BLOOD CELL COUNT(AUTO) 2.36 MIL/uL (4.5-6.0); WHITE BLOOD COUNT (AUTO) 24.1 K/uL (4.3-11.0)
[2020-05-14 11:27] LABS: BILIRUBIN,URINE NEGATIVE (NEGATIVE); COLOR,URINE YELLOW (YELLOW); LEUKOCYTE ESTERASE ,URINE TRACE (NEGATIVE); NITRITE, URINE NEGATIVE (NEGATIVE); PH,URINE 5.5 (5.0-8.0); PROTEIN,URINE TRACE mg/dl (NEGATIVE); UGLUCOSE NEGATIVE (NEGATIVE); UROBILINOGEN,URINE 0.2 EU/dL (0.2)
[2020-05-14 11:32] LABS: CALCIUM, SERUM 8.5 mg/dL (8.5-10.1); CARBON DIOXIDE 26 mmol/L (21-32); CHLORIDE 99 mmol/L (98-107); CREATININE 2.1 mg/dL (0.6-1.3); GLUCOSE 233 mg/dL (74-106); POTASSIUM 5.9 mmol/L (3.5-5.1); SODIUM SERUM 133 mmol/L (136-145)
[2020-05-14] MEDS ORDERED: HYDROMORPHONE INJ 2 MG/ML DISP.SYRIN ONE (11:36)
[2020-05-14 11:42] LABS: UREA NITROGEN, BLOOD 108 mg/dL (7-18)
--- NOTE | 2020-05-14 11:42 | NUR ---
GOT BED 200
[2020-05-14 11:45] LABS: THYROID STIMULATING HORMONE 1.912 uIU/mL (0.358-3.74)
[2020-05-14 11:46] LABS: BACTERIA,URINE Few /HPF (None Seen); SQUAMOUS EPITHELIAL CELL,UR Few /HPF (None Seen); URINE AMORPHOUS URATE Moderate /HPF (None Seen)
[2020-05-14 11:47] LABS: ACETAMINOPHEN 2 ug/ml (10-30); ALANINE AMINOTRANSFERASE 9 U/L (12-78); ALKALINE PHOSPHATASE 83 U/L (46-116); ASPARTATE AMINOTRANSFERASE 15 U/L (15-37); BILIRUBIN,DIRECT 0.2 mg/dL (0.0-0.2); BILIRUBIN,TOTAL 0.2 mg/dL (0.2-1.0); TOTAL PROTEIN, SERUM 5.2 g/dL (6.4-8.2)
[2020-05-14] MEDS ORDERED: VANCOMYCIN 1 GM in IV D5W 250 ML IV ONE (12:00)
[2020-05-14] MEDS ORDERED: CEFEPIME 1 GM in IV D5W 50 ML IV ONE (12:00)
[2020-05-14 12:01] LABS: ALCOHOL, BLOOD < 3 mg/dL (0-0)
[2020-05-14 12:02] LABS: ALBUMIN 1.2 g/dL (3.4-5.0)
--- NOTE | 2020-05-14 12:02 | NUR ---
LAB CALLED ALBUMIN 1.7
[2020-05-14] MEDS ORDERED: ZINC1CAP2 PO (12:08)
[2020-05-14] MEDS ORDERED: GEL100GE TD (12:08)
[2020-05-14] MEDS ORDERED: MAGN400O6 PO (12:08)
[2020-05-14] MEDS ORDERED: BENZ1LOZ58 MM (12:08)
[2020-05-14] MEDS ORDERED: INSU100V30 SQ (12:08)
[2020-05-14] MEDS ORDERED: PRED20TA PEG (12:08)
[2020-05-14] MEDS ORDERED: IPRA12.9 IH (12:08)
[2020-05-14] MEDS ORDERED: AMIO200T5 PO ×2 (12:08)
[2020-05-14] MEDS ORDERED: TRIA80CR12 TP (12:08)
[2020-05-14] MEDS ORDERED: AMIN30LI2 PO (12:08)
--- NOTE | 2020-05-14 12:19 | NUR ---
covid pcr and antigen collected sent to lab
[2020-05-14 12:20] LABS: ABG OXYGEN SATURATION 98.7 % (92.0-98.5); ABG PCO2 49.9 mmHg (35.0-45.0); ABG PH 7.274 (7.350-7.450); ABG PO2 144.2 mmHg (75.0-100.0); AaDO2 54.6 mmHg; COHb 1.4 % (0.5-1.5); MetHb 0.3 % (0.0-1.5); SITE, ABG Right Radial; VENT MODE, BG 4L NC
[2020-05-14] MEDS ORDERED: ZOLPIDEM TARTRATE 5 MG TABLET PO PRN (12:30)
[2020-05-14] MEDS ORDERED: DEXTROSE 50%-WATER 50 ML DISP.SYRIN IV PRN (12:30)
[2020-05-14] MEDS ORDERED: ONDANSETRON HCL/PF 4 MG/2 ML VIAL IVP PRN (12:30)
--- NOTE | 2020-05-14 12:55 | NUR ---
report given to elizabeth brizuela at [facility]
[2020-05-14 13:02] LABS: SERUM AMMONIA 27 umol/L (11-32)
--- NOTE | 2020-05-14 13:07 | NUR ---
transferred to room 200
[2020-05-14] MEDS: ALBUTEROL HALF STRENGTH 1.25 MG/3 ML VIAL.NEB NEB SCH ×2 (13:30→19:30)
[2020-05-14] MEDS: IPRATROPIUM NEB FS 0.5 MG/2.5 ML AMPUL.NEB NEB SCH ×2 (13:30→19:30)
[2020-05-14 14:00] LABS: BAND % (MANUAL) 3 % (0.0-5.0); LYMPHOCYTES % (MANUAL) 3 % (16-48); NEUTROPHILS % (MANUAL) 87 (42-76)
[2020-05-14] MEDS ORDERED: VANCOMYCIN 0.75 GM in IV D5W 250 ML IV SCH (14:00)
[2020-05-14 14:01] LABS: MONOCYTES % (MANUAL) 6 % (0-11.0); MYELOCYTES % 1 % (0-0)
[2020-05-14] MEDS: methylPREDNISolone SOD SUCC 40 MG/ML VIAL IV SCH (15:20)
[2020-05-14 16:00] VITALS: BP 109/85
[2020-05-14] MEDS: BLOOD SUGAR DIAGNOSTIC 1 EACH STRIP IN SCH ×2 (16:30→23:35)
[2020-05-14] MEDS: INSULIN REGULAR, HUMAN 100 UNIT/ML 3 ML VIAL SQ PRN (16:32)
[2020-05-14] MEDS: APIXABAN 5 MG TABLET PO SCH ×2 (16:37→17:00)
[2020-05-14] MEDS: IV NS 0.9% 1,000 ML IV PRN (16:41)
[2020-05-14] MEDS: ZOSYN IVPB 3.375 G in IV D5W 50ml IV SCH ×2 (17:07→23:35)
--- NOTE | 2020-05-14 18:37 | NUR ---
rt note Med not given due to pending PCR result. No distress noticed.
--- NOTE | 2020-05-14 18:50 | NUR ---
Patient transferred to room 102, given report Sebas/RN.
[2020-05-14 19:00] VITALS: BP 113/69
--- NOTE | 2020-05-14 19:00 | NUR ---
RN NOTE RECEIVED PT AT 1850 FROM JOLENE OBANDO. PT ON NC 2LPM, SOB OF NOTED, INCREASED NC TO 6LPM AND CALLED RT. SPO2 FLUCTUATING FROM 88-100%, 100% NOW ON 6LPM. PT HAS RAC #18 INFUSING NS @ 75ML/HR. PT VITALS 96/70, HR 110, RR 24, SPO2 88-1000%. PT A/Ox1. PT DENIES PAIN. WILL ENDORSE DENIS TO ONCOMING NURSE. ALL SAFETY MEASURES IN PLACE
--- NOTE | 2020-05-14 19:50 | NUR ---
LANGUAGE TEACHER OVF NOTE, RECEIVED PATIENT, LETHARGIC, RESPONDS TO NAME, AND TACTILE STIMULI, PATIENT ON NC 26LPM, SPO2 FLUCTUATING FROM 94-100%, RAC #18 INFUSING NS @ 75ML/HR, CALL LIGHT W/I REACH, ALL SAFETY MEASURES IN PLACE, ALL NEEDS PROVIDED, WILL CONTINUE TO MONITOR CLOSELY.
[2020-05-14 20:00] VITALS: BP 121/90
--- NOTE | 2020-05-14 20:20 | NUR ---
CATH LAB NURSE IVF NOTE, RT AT BEDSIDE WEANING PATIENT OFF O2, PATIENT HAD COPD, TITRATED DOWN TO 2LPM, THEN TO 1LPM FINALLY RA, PATIENT TOLERATED WELL WITH O2 FLUCTUATING 88-95% AT THIS TIE, WILL CONTINUE TO MONITOR CLOSELY.
[2020-05-14 21:00] VITALS: BP 120/57
[2020-05-14 22:00] VITALS: BP 92/60
[2020-05-14 23:00] VITALS: BP 109/67
[2020-05-15] VITALS (13 sets, daily range): BP systolic 90–137; BP diastolic 42–78
--- NOTE | 2020-05-15 00:06 | NUR ---
HAND PICKER OVF NOTE, INFORMED DR FELICIANO MINE EXPLORATION ENGINEER THAT POTASSIUM RESULTS IS 5.8 AND PATIENT CONTINUE WITH AFIB UNCONTROLLED WITH HR FLUCTUATING FROM 110-130, ALSO THE INSULIN LEVEL 253, NO INSULIN COVERAGE IN THE MAR, DR REPLIED WITH ORDER TO GIVE 5UNITS OF HUMULIN REGULAR INSULIN NOW, AND 200MG AMIODARONE PO TRY TO GIVE IT TO PATIENT EVEN IF IS NPO, NOTED AND CARRIED OUT.
[2020-05-15] MEDS ORDERED: AMIODARONE HCL 200 MG TABLET PO ONE (00:30)
[2020-05-15] MEDS ORDERED: INSULIN REGULAR, HUMAN 100 UNIT/ML 10 ML VIAL SQ ONE (00:30)
[2020-05-15] MEDS: INSULIN REGULAR, HUMAN 100 UNIT/ML 3 ML VIAL SQ PRN ×5 (00:44→23:50)
--- NOTE | 2020-05-15 00:47 | NUR ---
FUND RAISER OVF NOTES, GIVEN THE 6U PER SLIDING SCALE.
[2020-05-15] MEDS: ALBUTEROL HALF STRENGTH 1.25 MG/3 ML VIAL.NEB NEB SCH ×4 (01:30→19:30)
[2020-05-15] MEDS: IPRATROPIUM NEB FS 0.5 MG/2.5 ML AMPUL.NEB NEB SCH ×4 (01:30→19:30)
[2020-05-15] MEDS: methylPREDNISolone SOD SUCC 40 MG/ML VIAL IV SCH ×2 (02:51→13:41)
[2020-05-15] MEDS: VANCOMYCIN 0.75 GM in IV D5W 250 ML IV SCH (05:03)
[2020-05-15] MEDS: BLOOD SUGAR DIAGNOSTIC 1 EACH STRIP IN SCH ×4 (05:53→23:45)
[2020-05-15 06:08] LABS: ABG BASE EXCESS -5.2 mmol/L; ABG OXYGEN SATURATION 91.7 % (92.0-98.5); ABG PCO2 43.6 mmHg (35.0-45.0); ABG PH 7.298 (7.350-7.450); ABG PO2 66.9 mmHg (75.0-100.0); AaDO2 30.6 mmHg; COHb 1.1 % (0.5-1.5); MetHb 0.3 % (0.0-1.5); O2Hb 90.4 % (94.0-97.0); SITE, ABG Right Radial; VENT MODE, BG ROOM AIR
[2020-05-15] MEDS: ZOSYN IVPB 3.375 G in IV D5W 50ml IV SCH ×4 (06:16→23:45)
[2020-05-15] MEDS: IV NS 0.9% 1,000 ML IV PRN (06:23)
[2020-05-15 07:01] LABS: BASOPHILS % (AUTO) 0.2 % (0.0-2.0); EOSINOPHILS % (AUTO) 2.2 % (0.0-6.0); LYMPHOCYTES # (AUTO) 0.6 /CMM (0.8-4.8); LYMPHOCYTES % (AUTO) 3.5 % (20.0-44.0); MEAN CORPUSCULAR HGB CONC 30 g/dl (31.0-36.0); MEAN CORPUSCULAR VOLUME 102 fL (80-96); MONOCYTES # (AUTO) 0.6 /CMM (0.1-1.30); MONOCYTES % (AUTO) 3.6 % (2.0-12.0); NEUTROPHILS # (AUTO) 15.1 /CMM (1.8-8.9); NEUTROPHILS % (AUTO) 90.5 % (43.0-81.0); PLATELET COUNT (AUTO) 150 /CMM (150-450); WHITE BLOOD COUNT (AUTO) 16.6 K/uL (4.3-11.0)
--- NOTE | 2020-05-15 07:10 | NUR ---
TEACHING SPECIALISTS OVF CLOSING NOTE, PATIENT AWAKE A/O X2-3, TOLERATED RA WITH O2 SAT 88-97%, NO DISTRESS, MORE AWAKE, YELLING AT THIS TIME, RAC #18 INFUSING NS @ 75ML/HR, TOLERATED WELL, CALL LIGHT W/I REACH, ALL SAFETY MEASURES IN PLACE, ALL NEEDS PROVIDED, ENDORSE TO JASWANT FERNÁNDEZ FOR CONTINUATION OF CARE.
[2020-05-15 07:13] LABS: RED BLOOD CELL COUNT(AUTO) 1.99 MIL/uL (4.5-6.0)
[2020-05-15 07:16] LABS: HEMATOCRIT 20 % (39-51)
--- NOTE | 2020-05-15 07:30 | NUR ---
RN NOTES [facility] INFORMED WITH CRITICAL RESULT OF HEMOGLOBIN OF 6.[address] TIDWELL
[2020-05-15 07:35] LABS: CALCIUM, SERUM 8.1 mg/dL (8.5-10.1); CARBON DIOXIDE 22 mmol/L (21-32); CHLORIDE 100 mmol/L (98-107); GLUCOSE 269 mg/dL (74-106); PHOSPHORUS 4.1 mg/dL (2.5-4.9); POTASSIUM 5.2 mmol/L (3.5-5.1); SODIUM SERUM 134 mmol/L (136-145)
[2020-05-15 07:40] LABS: UREA NITROGEN, BLOOD 115 mg/dL (7-18)
--- NOTE | 2020-05-15 07:47 | NUR ---
RN OPENING NOTE PATIENT IS IN BED WITH HOB AT SEMI FOWLERS POSITION. PATIENT IS AOX1. PATIENT IS ON 1L NC. PATIENT'S SACRAL REDNESS HAS BEEN NOTED. RAC 18G IS PATENT, INTACT, AND HAS NO SIGNS OF INFILTRATION. BED IS LOCKED IN THE LOWEST POSITION, 3 GUARD RAILS RAISED, AND ALL HOSPITAL SAFETY PRECAUTIONS ARE BEING FOLLOWED. WILL CONTINUE TO MONITOR THROUGHOUT SHIFT.
--- NOTE | 2020-05-15 08:37 | NUR ---
RN NOTES HOLD THE ELIQUIS DUE TO LOW HEMOGLOBIN LEVEL INFORMED
[2020-05-15] MEDS: APIXABAN 5 MG TABLET PO SCH (08:55)
[2020-05-15 10:13] LABS: CHOLESTEROL 92 mg/dL (<200); HDL CHOLESTEROL 12 mg/dL (40-60); LDL 41 mg/dL (0-99); TRIGLYCERIDES 142 mg/dL (30-150)
[2020-05-15] MEDS ORDERED: METOPROLOL TARTRATE INJ 5 MG/5 ML AMPUL IVP PRN (10:30)
--- NOTE | 2020-05-15 11:11 | NUR ---
WOUND CARE CONSULT: REVIEWED CHART, NURSING DOCUMENTATION AND PHOTOS WHICH INDICATE LOWER EXTREMITY WOUNDS, DISCOLORATION TO ARMS AND SACRAL WOUND, PRESENT ON ADMISSION. RECOMMEND DPM AND SURGICAL CONSULTS. DR PERALTA AND DR HOFF NOTIFIED OF CONSULT REQUESTS. PT IS ON MARTIN ISOFLEX LOW AIRLOSS BED. RECOMMENDATIONS MADE FOR SKIN PROTECTION. DISCUSSED WITH NURSING STAFF. MD IN AGREEMENT WITH PLAN OF CARE.
--- NOTE | 2020-05-15 11:12 | NUR ---
RN NOTE PATIENT'S O2 DROPPING TO 80%. INCREASED O2 TO 4L VIA NASAL CANULA. PATIENT NOW SATURATING 100%. WILL CONTINUE TO MONITOR.
[2020-05-15 13:06] LABS: BAND % (MANUAL) 2 % (0.0-5.0); LYMPHOCYTES % (MANUAL) 3 % (16-48); METAMYELOCYTES % 2 % (0-0); MONOCYTES % (MANUAL) 4 % (0-11.0); NEUTROPHILS % (MANUAL) 89 (42-76)
--- NOTE | 2020-05-15 18:28 | NUR ---
RN CLOSING NOTE PATIENT IS IN BED WITH HOB AT SEMI FOWLERS POSITION. PATIENT IS AOX1. PATIENT IS CURRENTLY ON 2L NC SATURATING 100% VIA MONITOR. RAC 18G IS PATENT, INTACT, AND HAS NO SIGNS OF INFILTRATION. PATIENT HAS SACRAL WOUND WITH MEPILEX APPLIED AND BILATERAL LEG DVTS. PATIENT IS CURRENTLY RECEIVING PRBCs AND IS REMAINING STABLE. BED IS LOCKED IN THE LOWEST POSITION, CALL HUFF WITHIN REACH, AND ALL HOSPITAL SAFETY PRECAUTIONS ARE BEING FOLLOWED. WILL ENDORSE TO SYSTEMS MECHANIC RN.
--- NOTE | 2020-05-15 19:05 | NUR ---
RECEIVED PT ON BED ASLEEP EASY TO WAKE UP, ON 2L O2 VIA NC SPO2 99% WITH ONGOING BLOOD TRANSFUSION VIA R AC# 18 WITH CURRENT V/S BP 108/62 HR 121 RR 20 TEMP 98.3 NO TRANSFUSION REACTION NOTED AT THIS TIME TELE MONITOR READS UNCONTROLLED AFIB 110'S MD IS AWARE, BE ON LOWEST POSITION AND LOCKED SIDE RAIL UP X 2 CALL LIGHT WITHIN REACH WILL CONT TO MONITOR THE PT
--- NOTE | 2020-05-15 19:14 | NUR ---
RN NOTES BLOOD IS STILL RUNNING ENDORSED TO MARISOL PM NURSE FOR DENIS. NO BLOOD TRANSFUSION REACTION
--- NOTE | 2020-05-15 20:00 | NUR ---
BLOOD TRANSFUSION COMPLETED WITH LATEST BP 102/50 HR 119 RR 20 TEMP 97.4 SPO2 98% VIA 4L O2 VIA NASAL CANNULA NO TRANSFUSION REACTION NOTED WILL CONT TO MONITOR THE PT
[2020-05-16] VITALS: BP 149/94
[2020-05-16] MEDS: VANCOMYCIN 0.75 GM in IV D5W 250 ML IV SCH ×2 (00:19→20:51)
[2020-05-16] MEDS: IV NS 0.9% 1,000 ML IV PRN (01:23)
[2020-05-16] MEDS: ALBUTEROL HALF STRENGTH 1.25 MG/3 ML VIAL.NEB NEB SCH ×4 (01:30→19:30)
[2020-05-16] MEDS: IPRATROPIUM NEB FS 0.5 MG/2.5 ML AMPUL.NEB NEB SCH ×4 (01:30→19:30)
[2020-05-16] MEDS: methylPREDNISolone SOD SUCC 40 MG/ML VIAL IV SCH ×2 (02:29→16:05)
[2020-05-16 04:00] VITALS: BP 101/49
[2020-05-16] MEDS: ZOSYN IVPB 3.375 G in IV D5W 50ml IV SCH ×4 (05:21→23:23)
[2020-05-16] MEDS: INSULIN REGULAR, HUMAN 100 UNIT/ML 3 ML VIAL SQ PRN ×4 (05:34→23:28)
[2020-05-16] MEDS: BLOOD SUGAR DIAGNOSTIC 1 EACH STRIP IN SCH ×4 (05:34→23:42)
[2020-05-16 06:50] LABS: BASOPHILS % (AUTO) 0.1 % (0.0-2.0); HEMATOCRIT 22 % (39-51); LYMPHOCYTES # (AUTO) 0.8 /CMM (0.8-4.8); LYMPHOCYTES % (AUTO) 4.3 % (20.0-44.0); MEAN CORPUSCULAR HGB CONC 31 g/dl (31.0-36.0); MEAN CORPUSCULAR VOLUME 98 fL (80-96); MONOCYTES # (AUTO) 0.5 /CMM (0.1-1.30); MONOCYTES % (AUTO) 2.9 % (2.0-12.0); NEUTROPHILS # (AUTO) 17.7 /CMM (1.8-8.9); NEUTROPHILS % (AUTO) 92.7 % (43.0-81.0); PLATELET COUNT (AUTO) 147 /CMM (150-450); RED BLOOD CELL COUNT(AUTO) 2.24 MIL/uL (4.5-6.0); WHITE BLOOD COUNT (AUTO) 19.1 K/uL (4.3-11.0)
--- NOTE | 2020-05-16 06:51 | NUR ---
PT SLEEPING ON BED EASY TO WAKE UP, MORE ALERT TODAY THAN YESTERDAY, SPO2 93% NO SIGN AND SYMPTOMS OF DISTRESS NO PAIN NOTED, ALL NEEDS ATTENDED NO SIGNIFICANT CHANGES ON CONDITION NOTED, BED ON LOWEST POSITION AND LOCKED SIDE RAILS UP X 2 CALL LIGHT WITHIN REACH WILL ENDORSED TO AM SHIFT NURSE
[2020-05-16 07:06] LABS: HEMOGLOBIN 6.7 g/dL (13.5-17.5)
--- NOTE | 2020-05-16 07:20 | NUR ---
RN OPENING NOTES RECEIVED PT IN BED ASLEEP, EASY TO WAKE UP. ON 2L O2 VIA NC, SPO2 @100%. NO SOB OR ANY RESPIRATORY DISTRESS NOTED. R AC#18 INTACT AND PATENT. NS RUNNING @75ML/HR. INFUSING WELL. TELE MONITOR READS UNCONTROLLED AFIB. SAFETY MEASURES IN PLACE. CALL LIGHT WITHIN REACH. BED LOCKED AND AT LOWEST POSITION WITH SIDE RAILS UP X2. WILL CONTINUE TO MONITOR.
[2020-05-16 07:30] LABS: CALCIUM, SERUM 8.4 mg/dL (8.5-10.1); CARBON DIOXIDE 23 mmol/L (21-32); CHLORIDE 102 mmol/L (98-107); CREATININE 1.9 mg/dL (0.6-1.3); GLUCOSE 297 mg/dL (74-106); POTASSIUM 4.9 mmol/L (3.5-5.1); SODIUM SERUM 136 mmol/L (136-145)
[2020-05-16 07:39] LABS: UREA NITROGEN, BLOOD 116 mg/dL (7-18)
--- NOTE | 2020-05-16 07:40 | NUR ---
RT Breathing tx not given due to pending COVID-19 PCR results
[2020-05-16 08:00] VITALS: BP_SYST 105; BP_SYST 170; BP_DIAS 113; BP_DIAS 73
[2020-05-16] MEDS: HYDROGEL DRESSING 90 GM TUBE TP SCH (09:11)
[2020-05-16 09:30] LABS: LYMPHOCYTES % (MANUAL) 4 % (16-48); MONOCYTES % (MANUAL) 3 % (0-11.0); NEUTROPHILS % (MANUAL) 93 (42-76)
[2020-05-16 12:00] VITALS: BP 102/60
[2020-05-16] MEDS ORDERED: METOPROLOL TARTRATE INJ 5 MG/5 ML AMPUL IVP ONE (13:00)
[2020-05-16 16:00] VITALS: BP 96/46
--- NOTE | 2020-05-16 18:00 | NUR ---
RN NOTES REFUSED BLOOD DRAW FOR VANCO TROUGH. CALLED PHARMACY IF CAN ADMINISTER DOSE WITHOUT RESULTS, TO HOLD VANCO UNTIL VANCO TROUGH RESULTS. CALLED LAB AND WILL TRY AGAIN TO GET SPECIMEN
--- NOTE | 2020-05-16 19:16 | NUR ---
RN NOTE RECEIVED PT A/OX 2IN BED RESTING COMFORTABLY IN SEMI PABLO'S POSITION.PATIENT IN NO S/SX OF ACUTE DISTRESS AT THIS TIME. NO SOB NOTED. PATIENT'S BREATHING IS EVEN AND UNLABORED. PATIENT IS ON (2) L OF OXYGEN VIA (NC); TOLERATING WELL. PATIENT ON TELE MONITORING UNCONTROLLED AFIB 109 NOTED TEENA MIDLINE PATENT, INTACT AND FLUSHING WELL; NO S/S OF INFECTION OR INFILTRATION. WITH IV FLUID RUNNING ORDERED. SAFETY MEASURES HAVE BEEN PROVIDED AND IMPLEMENTED. PATIENT BED ALARM IS ON. HEAD OF BED ELEVATED. BED IS LOCKED, IN LOWEST POSITION AND SIDE RAILS UP. CALL LIGHT WITHIN REACH OF THE PATIENT. APPLICABLE ISOLATION PRECAUTIONS IN PLACE. WILL CONTINUE TO MONITOR AND REASSESS FOR ANY CHANGES AND WILL CARRY OUT ANY ONGOING AND ACTIVE MD ORDER.
--- NOTE | 2020-05-16 19:32 | NUR ---
RN CLOSING NOTES PT RESTING IN BED. ON 2L O2 VIA NC, SPO2 @100%. NO SOB OR ANY RESPIRATORY DISTRESS NOTED. TEENA MIDLINE #18 INTACT AND PATENT. NS RUNNING @75ML/HR. INFUSING WELL. TELE MONITOR READS UNCONTROLLED AFIB. ALL DUE MEDS GIVEN. NEEDS ATTENDED. SAFETY MEASURES IN PLACE. CALL LIGHT WITHIN REACH. BED LOCKED AND AT LOWEST POSITION WITH SIDE RAILS UP X2. WILL CONTINUE TO MONITOR.
--- NOTE | 2020-05-16 19:37 | NUR ---
ENDORSED TO NIGHT NURSE FOR DENIS
[2020-05-16 20:00] VITALS: BP 93/48
--- NOTE | 2020-05-16 20:51 | NUR ---
RN NOTE KATE ALBA 13. PER PHARMACY, OKAY TO GIVE NOW.
[2020-05-17] VITALS (11 sets, daily range): BP systolic 95–123; BP diastolic 46–81
[2020-05-17] MEDS: IV NS 0.9% 1,000 ML IV PRN (01:11)
[2020-05-17] MEDS: methylPREDNISolone SOD SUCC 40 MG/ML VIAL IV SCH ×2 (01:11→14:56)
[2020-05-17] MEDS: ALBUTEROL HALF STRENGTH 1.25 MG/3 ML VIAL.NEB NEB SCH ×4 (01:30→19:30)
[2020-05-17] MEDS: IPRATROPIUM NEB FS 0.5 MG/2.5 ML AMPUL.NEB NEB SCH ×4 (01:30→19:30)
--- NOTE | 2020-05-17 04:00 | NUR ---
RN NOTE NO CHANGE IN PATIENT CONDITION AT THIS TIME PATIENT VITALS STABLE, NO SIGNS OF ACUTE RESPIRATORY DISTRESS. WILL CONTINUE TO MONITOR AND REASSESS FOR ANY CHANGES THROUGHOUT THE SHIFT.
[2020-05-17] MEDS: ZOSYN IVPB 3.375 G in IV D5W 50ml IV SCH ×3 (05:34→20:07)
[2020-05-17] MEDS: INSULIN REGULAR, HUMAN 100 UNIT/ML 3 ML VIAL SQ PRN ×3 (05:51→17:20)
[2020-05-17] MEDS: BLOOD SUGAR DIAGNOSTIC 1 EACH STRIP IN SCH ×3 (05:56→17:09)
[2020-05-17 06:44] LABS: BASOPHILS % (AUTO) 0.1 % (0.0-2.0); EOSINOPHILS % (AUTO) 0.8 % (0.0-6.0); LYMPHOCYTES # (AUTO) 0.9 /CMM (0.8-4.8); LYMPHOCYTES % (AUTO) 5.5 % (20.0-44.0); MEAN CORPUSCULAR HGB CONC 31 g/dl (31.0-36.0); MEAN CORPUSCULAR VOLUME 97 fL (80-96); MONOCYTES # (AUTO) 0.4 /CMM (0.1-1.30); NEUTROPHILS # (AUTO) 15.8 /CMM (1.8-8.9); NEUTROPHILS % (AUTO) 91.6 % (43.0-81.0); PLATELET COUNT (AUTO) 149 /CMM (150-450); RED BLOOD CELL COUNT(AUTO) 2.08 MIL/uL (4.5-6.0); WHITE BLOOD COUNT (AUTO) 17.2 K/uL (4.3-11.0)
--- NOTE | 2020-05-17 06:47 | NUR ---
RN NOTE NO ACUTE CHANGES OBSERVED OVERNIGHT. PT RESTING COMFORTABLY IN BED IN SEMI PABLO'S POSITION. PATIENT WITHOUT SIGNS OF ACUTE DISTRESS OR PAIN AT THIS TIME. NO SOB NOTED. PATIENT'S BREATHING IS EVEN AND UNLABORED. PATIENT IS ON 2 L OF OXYGEN VIA NC; TOLERATING WELL. PATIENT ON TELE MONITORING UNCONTROLLED AFIB. NOTED TEENA MIDLINE PATENT, INTACT AND FLUSHING WELL; NO S/S OF INFECTION OR INFILTRATION. WITH IV FLUID RUNNING ORDERED. ALL NEEDS MET AND ATTENDED TO. ALL DUE MEDICATIONS ADMINISTERED. PT KEPT CLEAN AND COMFORTABLE. SAFETY MEASURES IN PLACE PER PROTOCOL. PATIENT BED ALARM IS ON. HEAD OF BED ELEVATED. BED IS LOCKED, IN LOWEST POSITION AND SIDE RAILS UP. APPLICABLE ISOLATION PRECAUTIONS IN PLACE.
[2020-05-17 07:01] LABS: CALCIUM, SERUM 8.3 mg/dL (8.5-10.1); CARBON DIOXIDE 24 mmol/L (21-32); CHLORIDE 104 mmol/L (98-107); CREATININE 2.1 mg/dL (0.6-1.3); GLUCOSE 304 mg/dL (74-106); HEMATOCRIT 20 % (39-51); HEMOGLOBIN 6.3 g/dL (13.5-17.5); MAGNESIUM 2.2 mg/dL (1.8-2.4); PHOSPHORUS 4.6 mg/dL (2.5-4.9); POTASSIUM 5.1 mmol/L (3.5-5.1); SODIUM SERUM 139 mmol/L (136-145)
[2020-05-17 07:03] LABS: UREA NITROGEN, BLOOD 119 mg/dL (7-18)
--- NOTE | 2020-05-17 07:05 | NUR ---
RN NOTE RECIEVED ALERT FOR HGB 6.3. PAGED EPIC.
--- NOTE | 2020-05-17 07:30 | NUR ---
RN NOTE ENDORSED TO CLIP LOADING MACHINE ADJUSTER MAYA TO FOLLOW UP WITH HGB LEVEL.
[2020-05-17] MEDS: HYDROGEL DRESSING 90 GM TUBE TP SCH (09:00)
[2020-05-17] MEDS: METOPROLOL TARTRATE 50 MG TABLET PO SCH ×2 (11:55→21:30)
[2020-05-17] MEDS ORDERED: predniSONE 20 MG TABLET PO SCH (12:00)
[2020-05-17] MEDS ORDERED: Medication Not On Formulary EA (Cyclosporine (Restasis) 1 DROP) EACHEYE SCH (12:00)
[2020-05-17] MEDS: VANCOMYCIN 0.75 GM in IV D5W 250 ML IV SCH (13:00)
[2020-05-17] MEDS: DOCUSATE SODIUM 100 MG CAPSULE PO SCH ×2 (13:00→16:56)
[2020-05-17] MEDS: MULTIVITAMINS,THERAGRAN 1 UDTAB TABLET PO SCH (13:02)
[2020-05-17] MEDS: CALCIUM CARB 250MG /VITAMIN D 1 UDTAB PO SCH (13:02)
[2020-05-17] MEDS: FERROUS SULFATE (325 MG) 325 MG/TAB TABLET PO SCH (13:02)
[2020-05-17] MEDS: AMIODARONE HCL 200 MG TABLET PO SCH (13:02)
[2020-05-17] MEDS: ASCORBIC ACID 500 MG TABLET PO SCH (13:02)
[2020-05-17] MEDS: LEVOTHYROXINE SODIUM 50 MCG TABLET PO SCH (13:02)
[2020-05-17] MEDS: PANTOPRAZOLE 40 MG VIAL IV SCH (13:03)
--- NOTE | 2020-05-17 19:00 | NUR ---
RN NOTE RECEIVED PATIENT IN BED, ON HIGH PABLO'S, IN NO S/SX OF ACUTE DISTRESS AT THIS TIME. PATIENT'S BREATHING IS EVEN AND UNLABORED. PATIENT IS ON 2 L OF OXYGEN VIA NC, TOLERATING WELL, SATURATION AT 98%. AFIB UNCONTROLLED ON THE MONITOR, HR IS 105. NOTED TEENA MIDLINE INTACT, PATENT AND FLUSHING WELL, NO S/S OF INFECTION, WITH ONGOING LOOD TRANSFUSION OF 1 UNIT PRBC, NO TRANSFUSION REACTIONS NOTED. SAFETY MEASURES IMPLEMENTED. PATIENT BED ALARM IS ON. HEAD OF BED ELEVATED. BED IS LOCKED, IN LOWEST POSITION AND SIDE RAILS UP. CALL LIGHT WITHIN REACH OF THE PATIENT. WILL CONTINUE TO MONITOR AND REASSESS FOR ANY CHANGES.
--- NOTE | 2020-05-17 19:20 | NUR ---
RN CLOSING NOTE PATIENT IS IN BED WITH HOB AT SEMI FOWLERS POSITION. PATIENT IS AOX1 ON 2L NC. YULIYA MIDLINE IS PATENT, INTACT, AND HAS NO SIGNS OF INFILTRATION. SACRAL REDNESS AND BIATERAL VENOUS WOUNDS NOTED ON LOWER EXTREMITIES. BED IS LOCKED IN THE LOWEST POSITION, CALL HUFF WITHIN REACH, AND 3 GUARD RAILS RAISED. ALL HOSPITAL SAFETY PRECAUTIONS ARE BEING FOLLOWED. WILL ENDORSE TO POOL TABLE OPERATOR RN.
--- NOTE | 2020-05-17 19:39 | NUR ---
RT\\ Addendum: 05/17/20 at 1940 by RIMA TAN RT neb tx not given due to pending lab results
[2020-05-17] MEDS ORDERED: MEROPENEM 500 MG in IV NS 0.9% 50 ML IV SCH (20:30)
[2020-05-17] MEDS: MEROPENEM 1 G in IV NS 0.9% 100 ML IV SCH (21:28)
[2020-05-17] MEDS: RIFAMPIN 600 MG in IV NS 0.9% 100 ML IV SCH (21:28)
[2020-05-17] MEDS: MUPIROCIN OINT 2% 22 GM TUBE NS SCH (21:29)
[2020-05-17] MEDS: ATORVASTATIN 10 MG TABLET PO SCH (21:30)
[2020-05-18] VITALS (44 sets, daily range): BP systolic 36–179; BP diastolic 17–129
[2020-05-18] MEDS: BLOOD SUGAR DIAGNOSTIC 1 EACH STRIP IN SCH ×5 (00:50→23:40)
[2020-05-18] MEDS: INSULIN REGULAR, HUMAN 100 UNIT/ML 3 ML VIAL SQ PRN ×5 (01:02→23:41)
[2020-05-18] MEDS: ALBUTEROL HALF STRENGTH 1.25 MG/3 ML VIAL.NEB NEB SCH ×2 (01:30→07:15)
[2020-05-18] MEDS: IPRATROPIUM NEB FS 0.5 MG/2.5 ML AMPUL.NEB NEB SCH ×2 (01:30→07:14)
--- NOTE | 2020-05-18 02:11 | NUR ---
PERINATAL SOCIAL WORKER NOTE REIMBURSEMENT COUNSELOR CALLED AND INFORMED ME THAT PT COVID PCR RESULT IS POSITIVE. ISOLATION PRECAUTIONS TAKEN.
[2020-05-18] MEDS: methylPREDNISolone SOD SUCC 40 MG/ML VIAL IV SCH ×2 (02:22→15:01)
[2020-05-18] MEDS: IV NS 0.9% 1,000 ML IV PRN ×2 (02:27→18:42)
[2020-05-18] MEDS: VANCOMYCIN 0.75 GM in IV D5W 250 ML IV SCH (05:50)
[2020-05-18 07:06] LABS: BASOPHILS % (AUTO) 0.2 % (0.0-2.0); EOSINOPHILS % (AUTO) 0.1 % (0.0-6.0); HEMATOCRIT 25 % (39-51); HEMOGLOBIN 7.8 g/dL (13.5-17.5); LYMPHOCYTES # (AUTO) 1.2 /CMM (0.8-4.8); LYMPHOCYTES % (AUTO) 5.7 % (20.0-44.0); MEAN CORPUSCULAR HGB CONC 31 g/dl (31.0-36.0); MEAN CORPUSCULAR VOLUME 96 fL (80-96); MONOCYTES # (AUTO) 0.4 /CMM (0.1-1.30); MONOCYTES % (AUTO) 1.8 % (2.0-12.0); NEUTROPHILS # (AUTO) 20.2 /CMM (1.8-8.9); NEUTROPHILS % (AUTO) 92.2 % (43.0-81.0); PLATELET COUNT (AUTO) 158 /CMM (150-450); RED BLOOD CELL COUNT(AUTO) 2.61 MIL/uL (4.5-6.0); WHITE BLOOD COUNT (AUTO) 21.9 K/uL (4.3-11.0)
[2020-05-18 07:22] LABS: ALANINE AMINOTRANSFERASE 8 U/L (12-78); ALKALINE PHOSPHATASE 66 U/L (46-116); ASPARTATE AMINOTRANSFERASE 9 U/L (15-37); BILIRUBIN,TOTAL 0.4 mg/dL (0.2-1.0); CALCIUM, SERUM 8.2 mg/dL (8.5-10.1); CARBON DIOXIDE 27 mmol/L (21-32); CHLORIDE 107 mmol/L (98-107); GLUCOSE 296 mg/dL (74-106); MAGNESIUM 2.2 mg/dL (1.8-2.4); PHOSPHORUS 3.7 mg/dL (2.5-4.9); POTASSIUM 4.6 mmol/L (3.5-5.1); SODIUM SERUM 142 mmol/L (136-145); TOTAL PROTEIN, SERUM 5.1 g/dL (6.4-8.2)
--- NOTE | 2020-05-18 07:30 | NUR ---
RN OPENING NOTE PATIENT IS IN BED WITH HOB AT SEMI FOWLERS POSITION. PATIENT IS AOX1 ON 2L NC. TEENA MIDLINE IS PATENT, INTACT, AND HAS NO SIGNS OF INFILTRATION. SACRAL REDNESS AND BILATERAL VENOUS WOUNDS NOTED ON LOWER EXTREMITIES. PATIENT NPO SINCE MIDNIGHT DUE TO POSSIBLE EDG SCHEDULED FOR TODAY. BED IS LOCKED IN THE LOWEST POSITION, CALL LIGHT WITHIN REACH, AND SIDE RAILS UP X2. ISOLATION PRECAUTIONS MAINTAINED. ALL HOSPITAL SAFETY PRECAUTIONS ARE BEING FOLLOWED. WILL CONTINUE TO MONITOR CLIENT DURING SHIFT.
[2020-05-18 07:32] LABS: UREA NITROGEN, BLOOD 112 mg/dL (7-18)
[2020-05-18 07:33] LABS: ALBUMIN 1.3 g/dL (3.4-5.0); D-DIMER 0.72 mg/L(FEU (0.17-0.50)
[2020-05-18 07:34] LABS: C-REACTIVE PROTEIN 6.4 mg/dL (0.0-0.9)
[2020-05-18] MEDS: HYDROGEL DRESSING 90 GM TUBE TP SCH (09:00)
[2020-05-18] MEDS: MUPIROCIN OINT 2% 22 GM TUBE NS SCH ×2 (09:00→21:04)
[2020-05-18] MEDS: DOCUSATE SODIUM 100 MG CAPSULE PO SCH ×2 (09:59→17:44)
[2020-05-18] MEDS: LEVOTHYROXINE SODIUM 50 MCG TABLET PO SCH (09:59)
[2020-05-18] MEDS: FERROUS SULFATE (325 MG) 325 MG/TAB TABLET PO SCH (09:59)
[2020-05-18] MEDS: CALCIUM CARB 250MG /VITAMIN D 1 UDTAB PO SCH (10:00)
[2020-05-18] MEDS: MULTIVITAMINS,THERAGRAN 1 UDTAB TABLET PO SCH (10:00)
[2020-05-18] MEDS: ASCORBIC ACID 500 MG TABLET PO SCH (10:00)
[2020-05-18] MEDS: METOPROLOL TARTRATE 50 MG TABLET PO SCH (10:01)
[2020-05-18] MEDS: PANTOPRAZOLE 40 MG VIAL IV SCH (10:01)
[2020-05-18] MEDS: AMIODARONE HCL 200 MG TABLET PO SCH (10:01)
[2020-05-18] MEDS: MEROPENEM 1 G in IV NS 0.9% 100 ML IV SCH ×2 (10:02→20:15)
[2020-05-18 10:17] LABS: BAND % (MANUAL) 1 % (0.0-5.0); LYMPHOCYTES % (MANUAL) 2 % (16-48); MONOCYTES % (MANUAL) 1 % (0-11.0); MYELOCYTES % 8 % (0-0); NEUTROPHILS % (MANUAL) 88 (42-76)
--- NOTE | 2020-05-18 13:04 | NUR ---
patient monitor shows bradycardia of 33 with a fib no palpable pulse not breathing b/p unappreciated , code blue called ,intubated by ER cpr was continued for multiple times and successful now getting ready for transfer to ICU AT 1340 Patient transferred to room 252 accompanied by resiratory therapist,primary nurse with [facility]CLA protocol
--- NOTE | 2020-05-18 13:10 | NUR ---
Daughter Ti swanson was notified at this time TECHNICAL SUPPORT REPRESENTATIVE Alexsandra Mckeon was notified as well
--- NOTE | 2020-05-18 13:11 | NUR ---
@ 1311 PT. INTUBATED BY NAGELO DOTY FOR RESPIRATORY / CARDIAC ARREST. PT. INTUBATED WITH 7.5 ET TUBE SECURED @ 23 CM LIPLINE. CO2 DETECTOR CHANGED TO YELLOW COLOR AND BREATH SOUNDS CLEAR BILATERAL POST INTUBATION. VENTILATOLR SETTINGS BELOW SET ORDER: AC 26 VT 600 ML FIO2 100% PEEP +5 VENT PLUGGED INTO RED OUTLET WITH ALARMS ON AND FUNCTIONING. AMBU BAG @ BEDSIDE. Addendum: 05/18/20 at 1403 by MIKO CASTELLANOS RT Amended: Links added.
[2020-05-18] MEDS ORDERED: EPINEPHRINE (1:10,000) SYRINGE 1 MG/10 ML DISP.SYRIN ONE (13:40)
--- NOTE | 2020-05-18 14:00 | NUR ---
PT RECEIVED FROM IRASEMA NOW ON [facility] VENTILATOR. TEENA MIDLINE NO IV FLUIDS RUNNING. NGT INSERTED PER DRILL RUNNER HELPER WILSTEIN ORDER, AND PT STARTED ON KM AND PROPOFOL
[2020-05-18 14:27] LABS: HEMATOCRIT 24 % (39-51); HEMOGLOBIN 7.3 g/dL (13.5-17.5); LYMPHOCYTES # (AUTO) 0.9 /CMM (0.8-4.8); MEAN CORPUSCULAR HGB CONC 30 g/dl (31.0-36.0); MEAN CORPUSCULAR VOLUME 99 fL (80-96); MONOCYTES # (AUTO) 0.5 /CMM (0.1-1.30); MONOCYTES % (AUTO) 1.8 % (2.0-12.0); NEUTROPHILS # (AUTO) 27.4 /CMM (1.8-8.9); NEUTROPHILS % (AUTO) 95.2 % (43.0-81.0); PLATELET COUNT (AUTO) 189 /CMM (150-450); RED BLOOD CELL COUNT(AUTO) 2.43 MIL/uL (4.5-6.0); WHITE BLOOD COUNT (AUTO) 28.8 K/uL (4.3-11.0)
[2020-05-18] MEDS ORDERED: PHENYLEPHRINE 100 MG in IV NS 0.9% 240 ML IV PRN ×2 (14:30→20:00)
[2020-05-18] MEDS: PROPOFOL 100 ML IV PRN ×2 (14:48→20:38)
[2020-05-18 15:12] LABS: ABG BASE EXCESS -7.3 mmol/L; ABG OXYGEN SATURATION 99.8 % (92.0-98.5); ABG PH 7.337 (7.350-7.450); ABG PO2 482.8 mmHg (75.0-100.0); AaDO2 196.2 mmHg; COHb 0.2 % (0.5-1.5); O2Hb 99.6 % (94.0-97.0); SITE, ABG Right Radial
[2020-05-18 15:20] LABS: TRIGLYCERIDES 212 mg/dL (30-150)
[2020-05-18 15:43] LABS: BAND % (MANUAL) 9 % (0.0-5.0); LYMPHOCYTES % (MANUAL) 6 % (16-48); MONOCYTES % (MANUAL) 2 % (0-11.0); NEUTROPHILS % (MANUAL) 83 (42-76)
[2020-05-18 16:27] LABS: CALCIUM, SERUM 8.7 mg/dL (8.5-10.1); CARBON DIOXIDE 20 mmol/L (21-32); CHLORIDE 106 mmol/L (98-107); CREATININE 2.2 mg/dL (0.6-1.3); GLUCOSE 338 mg/dL (74-106); POTASSIUM 5.2 mmol/L (3.5-5.1); SODIUM SERUM 141 mmol/L (136-145)
[2020-05-18 16:28] LABS: UREA NITROGEN, BLOOD 117 mg/dL (7-18)
--- NOTE | 2020-05-18 17:00 | NUR ---
PICC LINE INSERTED ORDERED WITH EMERGENCY CONSENT PT UNABLE TO SIGN, FAMILY UNABLE TO BE REACHED, PT ON PRESSORS WITH UNSTABLE BP
[2020-05-18] MEDS: POLYVINYL ALCOHOL 15 ML BOTTLE EACHEYE SCH (17:44)
--- NOTE | 2020-05-18 19:00 | NUR ---
PT TO HAVE 1U PRBC READY TO BE INFUSED, ENDORSED TO MARISOL RN FOR DENIS
--- NOTE | 2020-05-18 19:05 | NUR ---
RECEIVED PT ON BED SEDATED WITH SPO2 100% ON ETT/VENT SETTING PER MD HAVE LOW BP 59/37 CURRENTLY ON KM @ 3MCG/KG/MIN WITH ORDER FROM MD TO CHANGE IT TO LEVOPHED TITRATE PER PROTOCOL STILL WAITING FOR THE MEDICATION FROM PHARMACY, BED SIDE MONITOR READS AFIB @ 102 RR 26, HAVE TEENA MIDLINE PATENT AND FLUSHED WITH ONGOING NS @ 75ML/HR INFUSING WELL ALSO HAVE YULIYA PICC LINE 3LUMEN WITH ONGOING DIPRIVAN @ 25MCG/KG/MIN AND KM@ 3MCG/KG/MIN INFUSING WELL, PT DOES NOT HAVE EAST CATHETER DUE TO DIFFICULT ANATOMICAL STRUCTURE OF THE PENIS CHARGE NURSE IS AWARE, HAVE BILATERAL WRIST RESTRAINTS CIRCULATION WILL BE CHECKED REGULARLY HAVE RIGHT NARES NGTUBE CLAMPED PLACEMENT WAS CHECKED,DROPLET ISOLATION MAINTAINED FOR COVID 19 BED ON LOWEST POSITION AND LOCKED SIDE RAILS UP X2 CALL LIGHT WITHIN REACH WILL CONT TO MONITOR
[2020-05-18] MEDS: NOREPINEPHRINE 32 MG in IV NS 0.9% 218 ML IV PRN (19:19)
[2020-05-18] MEDS: RIFAMPIN 600 MG in IV NS 0.9% 100 ML IV SCH (21:03)
[2020-05-18] MEDS: ATORVASTATIN 10 MG TABLET PO SCH (22:20)
[2020-05-19] VITALS (96 sets, daily range): BP systolic 58–175; BP diastolic 28–120
[2020-05-19] MEDS: VANCOMYCIN 0.75 GM in IV D5W 250 ML IV SCH (00:20)
[2020-05-19] MEDS: methylPREDNISolone SOD SUCC 40 MG/ML VIAL IV SCH ×2 (02:42→09:10)
[2020-05-19] MEDS: PROPOFOL 100 ML IV PRN ×3 (04:01→19:03)
[2020-05-19] MEDS: BLOOD SUGAR DIAGNOSTIC 1 EACH STRIP IN SCH ×3 (05:16→18:42)
[2020-05-19] MEDS: INSULIN REGULAR, HUMAN 100 UNIT/ML 3 ML VIAL SQ PRN ×2 (05:18→19:06)
[2020-05-19 05:22] LABS: HEMATOCRIT 29 % (39-51); HEMOGLOBIN 9.6 g/dL (13.5-17.5); LYMPHOCYTES # (AUTO) 1.3 /CMM (0.8-4.8); LYMPHOCYTES % (AUTO) 3.7 % (20.0-44.0); MEAN CORPUSCULAR HGB CONC 33 g/dl (31.0-36.0); MEAN CORPUSCULAR VOLUME 92 fL (80-96); MONOCYTES # (AUTO) 0.8 /CMM (0.1-1.30); MONOCYTES % (AUTO) 2.2 % (2.0-12.0); NEUTROPHILS # (AUTO) 33.1 /CMM (1.8-8.9); NEUTROPHILS % (AUTO) 94.1 % (43.0-81.0); PLATELET COUNT (AUTO) 190 /CMM (150-450); RED BLOOD CELL COUNT(AUTO) 3.14 MIL/uL (4.5-6.0)
[2020-05-19] MEDS: Z GUARD REMEDY 2 OZ OINT TP PRN (05:22)
[2020-05-19 05:31] LABS: WHITE BLOOD COUNT (AUTO) 35.2 K/uL (4.3-11.0)
[2020-05-19 05:37] LABS: CALCIUM, SERUM 7.7 mg/dL (8.5-10.1); CARBON DIOXIDE 22 mmol/L (21-32); CHLORIDE 107 mmol/L (98-107); CREATININE 2.3 mg/dL (0.6-1.3); GLUCOSE 312 mg/dL (74-106); MAGNESIUM 2.2 mg/dL (1.8-2.4); PHOSPHORUS 3.6 mg/dL (2.5-4.9); POTASSIUM 4.1 mmol/L (3.5-5.1); SODIUM SERUM 142 mmol/L (136-145)
[2020-05-19 05:39] LABS: UREA NITROGEN, BLOOD 119 mg/dL (7-18)
[2020-05-19] MEDS ORDERED: VANCOMYCIN 0.75 GM in IV D5W 250 ML IV SCH (06:00)
[2020-05-19 06:14] LABS: BAND % (MANUAL) 6 % (0.0-5.0); LYMPHOCYTES % (MANUAL) 6 % (16-48); MONOCYTES % (MANUAL) 5 % (0-11.0); NEUTROPHILS % (MANUAL) 83 (42-76)
[2020-05-19] MEDS: IV NS 0.9% 1,000 ML IV PRN ×2 (06:34→19:47)
[2020-05-19] MEDS: LEVOTHYROXINE SODIUM 50 MCG TABLET PO SCH (07:30)
[2020-05-19] MEDS: NOREPINEPHRINE 32 MG in IV NS 0.9% 218 ML IV PRN (07:48)
--- NOTE | 2020-05-19 08:00 | NUR ---
RN NOTES RECEIVED PATIENT COVID POSITIVE, ON EET SETTING WITH VENT. TOLERATED SETTING WELL, NO ACUTE RESPIRATORY DISTRESS. PATIENT A-FIB ON PATIENT BEDSIDE MONITOR SHOWS INCREASED 160 HR . YULIYA MIDLINE IS PATENT, AND RIGHT UA PICC LINE INTACT HAS NO SIGNS OF INFILTRATION. SACRAL REDNESS , BILATERAL VENOUS WOUNDS NOTED ON LOWER EXTREMITIES. INFUSING DIPRIVAN 25 MCG/KG/HR, NS @75 ML/HR, LEVOPHED 0.3 MCG/KG/HR. BED IS LOCKED IN THE LOWEST POSITION, CALL HUFF WITHIN REACH, PATIENT OBESE. NGT INTACT AND CLAMPED. ADMINISTERED SCHEDULED MEDICATION VIA NGT. ASSIST TURN AND REPOSTION Q 2 HR. WILL MONITORING.
[2020-05-19 08:05] LABS: ABG BASE EXCESS -3.6 mmol/L; ABG PCO2 31.3 mmHg (35.0-45.0); ABG PH 7.425 (7.350-7.450); ABG PO2 171.3 mmHg (75.0-100.0); AaDO2 77.9 mmHg; COHb 0.3 % (0.5-1.5); MetHb 0.3 % (0.0-1.5); O2Hb 98.4 % (94.0-97.0); PEEP,BG 5 cm H2O; SITE, ABG Right Radial; VT, ABG 500 mL
[2020-05-19] MEDS: PANTOPRAZOLE 40 MG VIAL IV SCH (09:10)
[2020-05-19] MEDS: CALCIUM CARB 250MG /VITAMIN D 1 UDTAB PO SCH (09:10)
[2020-05-19] MEDS: MULTIVITAMINS,THERAGRAN 1 UDTAB TABLET PO SCH (09:11)
[2020-05-19] MEDS: DOCUSATE SODIUM 100 MG CAPSULE PO SCH ×2 (09:11→18:44)
[2020-05-19] MEDS: FERROUS SULFATE (325 MG) 325 MG/TAB TABLET PO SCH (09:11)
[2020-05-19] MEDS: ASCORBIC ACID 500 MG TABLET PO SCH (09:11)
[2020-05-19] MEDS: HYDROGEL DRESSING 90 GM TUBE TP SCH (09:12)
[2020-05-19] MEDS: AMIODARONE HCL 200 MG TABLET PO SCH (09:12)
[2020-05-19] MEDS: MEROPENEM 1 G in IV NS 0.9% 100 ML IV SCH ×2 (09:13→21:01)
[2020-05-19] MEDS: POLYVINYL ALCOHOL 15 ML BOTTLE EACHEYE SCH ×2 (09:13→18:42)
[2020-05-19] MEDS: MUPIROCIN OINT 2% 22 GM TUBE NS SCH ×2 (09:14→21:00)
[2020-05-19] MEDS ORDERED: AMIODARONE 150 MG in IV D5W 100 ML IV ONE ×2 (10:00→13:00)
[2020-05-19] MEDS: AMIODARONE 450 MG in IV D5W 250 ML IV PRN ×2 (10:48→18:01)
[2020-05-19] MEDS: VASOPRESSIN INJ 40 UNIT in IV NS 0.9% 38 ML IV PRN ×2 (12:12→12:37)
[2020-05-19] MEDS ORDERED: PROPOFOL 100 ML IV PRN (12:30)
--- NOTE | 2020-05-19 19:20 | NUR ---
PT REC'D ORALLY INTUBATED VIA ETT 7.5 SECURED @ 23CM [facility] WITH THE SETTINGS OF AC 26, 500,40%,PEEP 5. ET TUBE SECURED AND PATENT. BILATERAL CHEST RISE NOTED. SX DONE . ALARMS ARE SET AND AUDIBLE. VENT PLUGGED INTO RED OUTLET. AMBU BAG@ BEDSIDE. WILL CONTINUE TO MONITOR T/O THE SHIFT.
[2020-05-19] MEDS: RIFAMPIN 600 MG in IV NS 0.9% 100 ML IV SCH (21:02)
[2020-05-19] MEDS: ATORVASTATIN 10 MG TABLET PO SCH (21:51)
[2020-05-20] VITALS (86 sets, daily range): BP systolic 38–155; BP diastolic 21–109
[2020-05-20] MEDS: BLOOD SUGAR DIAGNOSTIC 1 EACH STRIP IN SCH ×4 (00:25→17:53)
[2020-05-20] MEDS: NOREPINEPHRINE 32 MG in IV NS 0.9% 218 ML IV PRN ×3 (02:06→23:17)
[2020-05-20] MEDS: methylPREDNISolone SOD SUCC 40 MG/ML VIAL IV SCH ×2 (02:11→13:21)
[2020-05-20 04:59] LABS: BASOPHILS # (AUTO) 0.1 /CMM (0.0-0.2); BASOPHILS % (AUTO) 0.2 % (0.0-2.0); HEMATOCRIT 29 % (39-51); HEMOGLOBIN 9.2 g/dL (13.5-17.5); LYMPHOCYTES # (AUTO) 1.5 /CMM (0.8-4.8); LYMPHOCYTES % (AUTO) 3.9 % (20.0-44.0); MEAN CORPUSCULAR HGB CONC 32 g/dl (31.0-36.0); MEAN CORPUSCULAR VOLUME 92 fL (80-96); MONOCYTES # (AUTO) 0.8 /CMM (0.1-1.30); MONOCYTES % (AUTO) 2.1 % (2.0-12.0); NEUTROPHILS # (AUTO) 35.4 /CMM (1.8-8.9); NEUTROPHILS % (AUTO) 93.8 % (43.0-81.0); PLATELET COUNT (AUTO) 171 /CMM (150-450); RED BLOOD CELL COUNT(AUTO) 3.14 MIL/uL (4.5-6.0)
[2020-05-20 05:15] LABS: CALCIUM, SERUM 7.7 mg/dL (8.5-10.1); CARBON DIOXIDE 18 mmol/L (21-32); CHLORIDE 107 mmol/L (98-107); CREATININE 2.6 mg/dL (0.6-1.3); GLUCOSE 306 mg/dL (74-106); MAGNESIUM 2.2 mg/dL (1.8-2.4); PHOSPHORUS 4.1 mg/dL (2.5-4.9); POTASSIUM 4.3 mmol/L (3.5-5.1); SODIUM SERUM 140 mmol/L (136-145)
[2020-05-20 05:17] LABS: UREA NITROGEN, BLOOD 121 mg/dL (7-18)
[2020-05-20 05:29] LABS: WHITE BLOOD COUNT (AUTO) 37.7 K/uL (4.3-11.0)
[2020-05-20] MEDS: INSULIN REGULAR, HUMAN 100 UNIT/ML 3 ML VIAL SQ PRN ×4 (05:37→17:55)
[2020-05-20] MEDS ORDERED: VANCOMYCIN 0.75 GM in IV D5W 250 ML IV SCH (06:00)
[2020-05-20] MEDS: PROPOFOL 100 ML IV PRN ×2 (07:37)
[2020-05-20] MEDS: LEVOTHYROXINE SODIUM 50 MCG TABLET PO SCH (07:48)
--- NOTE | 2020-05-20 08:00 | NUR ---
RN NOTES PATIENT STILL ON EET SETTING WITH VENT, GOAL IS EXTUBATE TODAY, AND TITRATED DIPRIVAN DOWN PER PROTOCOL NO ACUTE RESPIRATORY DISTRESS. PATIENT A-FIB ON PATIENT BEDSIDE MONITOR SHOWS HR 130/140. YULIYA PICC LINE INTACT HAS NO SIGNS OF INFILTRATION. SACRAL REDNESS , BILATERAL ARTERIAL WOUNDS NOTED ON LOWER EXTREMITIES. INFUSING NS @75 ML/HR, LEVOPHED 0.3 MCG/KG/HR, VASOPRESSIN 0.01, AMIODARONE 16.6. BED IS LOCKED IN THE LOWEST POSITION, ALL MEDICATION ADMINISTERED VIA NGT, AND CLAMPED. CALL HUFF WITHIN REACH. ASSIST TURN AND REPOSTION Q 2 HR. RECHECKED SOFT RESTRAIN FOR CIRCULATION.
[2020-05-20] MEDS: MEROPENEM 1 G in IV NS 0.9% 100 ML IV SCH ×2 (08:09→20:41)
[2020-05-20] MEDS: MUPIROCIN OINT 2% 22 GM TUBE NS SCH ×2 (08:10→20:41)
[2020-05-20] MEDS: POLYVINYL ALCOHOL 15 ML BOTTLE EACHEYE SCH ×2 (08:10→17:53)
[2020-05-20] MEDS: MULTIVITAMINS,THERAGRAN 1 UDTAB TABLET PO SCH (09:27)
[2020-05-20] MEDS: DOCUSATE SODIUM 100 MG CAPSULE PO SCH ×2 (09:27→17:53)
[2020-05-20] MEDS: ASCORBIC ACID 500 MG TABLET PO SCH (09:27)
[2020-05-20] MEDS: FERROUS SULFATE (325 MG) 325 MG/TAB TABLET PO SCH (09:27)
[2020-05-20] MEDS: CALCIUM CARB 250MG /VITAMIN D 1 UDTAB PO SCH (09:28)
[2020-05-20] MEDS: HYDROGEL DRESSING 90 GM TUBE TP SCH (09:28)
--- NOTE | 2020-05-20 10:00 | NUR ---
RN NOTES PATIENT FAIL ABG, AND STARTED SEDATION AGAIN DIPRIVAN STARTED 5MCG/KG/HR. BS-312 MG/DL COVERAGE GIVEN, AM CARE DONE.
[2020-05-20 10:59] LABS: BAND % (MANUAL) 2 % (0.0-5.0); LYMPHOCYTES % (MANUAL) 10 % (16-48); MONOCYTES % (MANUAL) 2 % (0-11.0); NEUTROPHILS % (MANUAL) 86 (42-76)
[2020-05-20 11:10] LABS: ABG BASE EXCESS -9.4 mmol/L; ABG PCO2 39.6 mmHg (35.0-45.0); ABG PH 7.254 (7.350-7.450); ABG PO2 132.9 mmHg (75.0-100.0); AaDO2 106.8 mmHg; COHb 0.3 % (0.5-1.5); MetHb 0.5 % (0.0-1.5); O2Hb 97.2 % (94.0-97.0); SITE, ABG Right Radial; VT, ABG 500 mL
[2020-05-20] MEDS: PANTOPRAZOLE 40 MG VIAL IV SCH (12:07)
[2020-05-20] MEDS: AMIODARONE 450 MG in IV D5W 250 ML IV PRN (12:07)
--- NOTE | 2020-05-20 14:00 | NUR ---
RN NOTES PER WOUND RAMPAPURE NO WOUND DEBRIDEMENT PATIENT, BECAUSE OF COVID +.
[2020-05-20] MEDS: IV NS 0.9% 1,000 ML IV PRN (14:02)
--- NOTE | 2020-05-20 14:55 | NUR ---
RN NOTES PATIENT HAS CONSULTATION VIA FOOD PROCESSING CHEMIST Dr MASSEY AND GET TO ODER TITRATE DOWN LEVOPHED, KEEP VASOPRESSIN 0.01 MCG/KG/HR AND TITRATE UP TO SUPPORT BP, ADMINISTER DIGOXIN 0.5 IV PUSH X1. ORDER TAKEN AND CARRIED OUT.
[2020-05-20] MEDS ORDERED: DIGOXIN INJ 0.5 MG/2 ML AMPUL IV ONE ×2 (15:00→22:00)
[2020-05-20] MEDS: CITRIC ACID/SODIUM CITRATE (BICITRA)15 ML UDC PO SCH ×3 (15:31→20:35)
--- NOTE | 2020-05-20 17:30 | NUR ---
RN NOTES BECAUSE PATIENT HAS INFECTION WBC 37.7. GET ORDER VIA DR GAUTAM D/C PICC LINE, AND GET 2 MIDLINE INSERTION ON R UPPER ARM.
[2020-05-20] MEDS: VASOPRESSIN INJ 40 UNIT in IV NS 0.9% 38 ML IV PRN (18:46)
--- NOTE | 2020-05-20 18:53 | NUR ---
RN NOTES PATIENT HR-104 AT THIS TIME, CONTINUING INFUSING AMIODARONE 16.[address] SPIVEY'S ORDER, DIPRIVAN 20MCG/KG/HR, VASOPRESSIN 0.4 MG/HR, NS AT 75 ML/HR, AND LEVOPHED 0.3 MCG/KG/HR. DUE MEDICATION ADMINISTERED, BS-284 MG/DL COVERAGE GIVEN. ASSIST TURN AND REPOSITION Q 2 HR. SAFETY MEASURE PREVENTED. ENDORSED ONCOMING NURSE FOLLOW PLAN OF CARE.
--- NOTE | 2020-05-20 20:46 | NUR ---
RECEIVED PT INTUBATED 7.5 ETT SECURED AT 23CM LIP LINE. VENT SETTINGS AC 26, 500, 40%, +5. PT TOLERATING VENT SETTINGS. VENT ALARMS SET AND AUDIBLE. ETT CUFF CHECKED. CONTINUE T0 MONITOR. Addendum: 05/20/20 at 204 by [place] JULIO RT Amended: Links added.
[2020-05-20] MEDS: RIFAMPIN 600 MG in IV NS 0.9% 100 ML IV SCH (21:11)
[2020-05-20] MEDS: ATORVASTATIN 10 MG TABLET PO SCH (21:30)
--- NOTE | 2020-05-20 23:44 | NUR ---
DURING BED BATH NOTICED PATIENT HAD MODERATE BLACK STOOL. OCCULT BLOOD ALREADY IN PROCESS. VITALS STABLE. WILL MONITOR PATIENT FOR EXCESSIVE BLEEDING.
--- NOTE | 2020-05-20 23:45 | NUR ---
COLLECTED SAMPLE OF STOOL TO BE SENT TO LAB.
--- NOTE | 2020-05-20 23:45 | NUR ---
SACRAL WOUND CULTURE COLLECTED.
[2020-05-21] VITALS (90 sets, daily range): BP systolic 50–151; BP diastolic 32–110
[2020-05-21] MEDS: PROPOFOL 100 ML IV PRN ×7 (01:04→23:22)
[2020-05-21] MEDS: BLOOD SUGAR DIAGNOSTIC 1 EACH STRIP IN SCH ×4 (01:13→17:42)
[2020-05-21] MEDS: INSULIN REGULAR, HUMAN 100 UNIT/ML 3 ML VIAL SQ PRN ×4 (01:15→17:41)
[2020-05-21] MEDS: methylPREDNISolone SOD SUCC 40 MG/ML VIAL IV SCH ×2 (02:07→13:13)
[2020-05-21 04:37] LABS: BASOPHILS # (AUTO) 0.1 /CMM (0.0-0.2); BASOPHILS % (AUTO) 0.3 % (0.0-2.0); HEMATOCRIT 30 % (39-51); HEMOGLOBIN 9.8 g/dL (13.5-17.5); LYMPHOCYTES # (AUTO) 0.9 /CMM (0.8-4.8); LYMPHOCYTES % (AUTO) 2.4 % (20.0-44.0); MEAN CORPUSCULAR HGB CONC 33 g/dl (31.0-36.0); MEAN CORPUSCULAR VOLUME 92 fL (80-96); MONOCYTES # (AUTO) 0.3 /CMM (0.1-1.30); MONOCYTES % (AUTO) 0.9 % (2.0-12.0); NEUTROPHILS # (AUTO) 38.4 /CMM (1.8-8.9); NEUTROPHILS % (AUTO) 96.4 % (43.0-81.0); PLATELET COUNT (AUTO) 157 /CMM (150-450); RED BLOOD CELL COUNT(AUTO) 3.26 MIL/uL (4.5-6.0)
[2020-05-21 04:42] LABS: WHITE BLOOD COUNT (AUTO) 39.8 K/uL (4.3-11.0)
[2020-05-21 04:50] LABS: CALCIUM, SERUM 7.7 mg/dL (8.5-10.1); CARBON DIOXIDE 20 mmol/L (21-32); CHLORIDE 107 mmol/L (98-107); CREATININE 2.8 mg/dL (0.6-1.3); GLUCOSE 290 mg/dL (74-106); MAGNESIUM 2.2 mg/dL (1.8-2.4); PHOSPHORUS 4.4 mg/dL (2.5-4.9); POTASSIUM 4.3 mmol/L (3.5-5.1); SODIUM SERUM 142 mmol/L (136-145)
[2020-05-21 05:00] LABS: UREA NITROGEN, BLOOD 121 mg/dL (7-18)
[2020-05-21 05:15] LABS: OCCULT BLOOD STOOL POSITIVE (NEGATIVE)
[2020-05-21 05:22] LABS: LYMPHOCYTES % (MANUAL) 3 % (16-48); MONOCYTES % (MANUAL) 3 % (0-11.0); NEUTROPHILS % (MANUAL) 94 (42-76)
[2020-05-21] MEDS: IV NS 0.9% 1,000 ML IV PRN ×2 (05:29→21:27)
--- NOTE | 2020-05-21 07:00 | NUR ---
RN NOTES RECEIVED PT ON BED, INTUBATED AND SEDATED, ON LEVO AND VASOPRESSIN DRIPS , TOLERATING VENT SETTING WELL, EAST DRAINING TO GRAVITY , CONTINUE TO MONITOR .
[2020-05-21] MEDS: MULTIVITAMINS,THERAGRAN 1 UDTAB TABLET PO SCH (08:25)
[2020-05-21] MEDS: LEVOTHYROXINE SODIUM 50 MCG TABLET PO SCH (08:25)
[2020-05-21] MEDS: FERROUS SULFATE (325 MG) 325 MG/TAB TABLET PO SCH (08:25)
[2020-05-21] MEDS: DOCUSATE SODIUM 100 MG CAPSULE PO SCH (08:26)
[2020-05-21] MEDS: CITRIC ACID/SODIUM CITRATE (BICITRA)15 ML UDC PO SCH ×4 (08:26→20:46)
[2020-05-21] MEDS: ASCORBIC ACID 500 MG TABLET PO SCH (08:26)
[2020-05-21] MEDS: POLYVINYL ALCOHOL 15 ML BOTTLE EACHEYE SCH ×2 (08:29→16:54)
[2020-05-21] MEDS: MEROPENEM 1 G in IV NS 0.9% 100 ML IV SCH ×2 (08:30→21:32)
[2020-05-21] MEDS: MUPIROCIN OINT 2% 22 GM TUBE NS SCH ×2 (08:32→20:46)
[2020-05-21] MEDS: HYDROGEL DRESSING 90 GM TUBE TP SCH (08:32)
[2020-05-21] MEDS ORDERED: VANCOMYCIN 0.75 GM in IV D5W 250 ML IV SCH (09:00)
[2020-05-21] MEDS: CALCIUM CARB 250MG /VITAMIN D 1 UDTAB PO SCH (09:09)
[2020-05-21] MEDS: VASOPRESSIN INJ 40 UNIT in IV NS 0.9% 38 ML IV PRN (09:51)
--- NOTE | 2020-05-21 10:29 | NUR ---
WOUND CARE: [employer] ETS AIR BED ORDERED TO ACCOMODATE PT'S GIRTH PER RN.
--- NOTE | 2020-05-21 11:20 | NUR ---
Per the pt.'s family's request, SW emailed Homes, Cremation, Burial & Cemetery Resources to Umberto Samuel at [email or web address]. SW will be available as needed. Resources included: [place] [employer] [phone] [employer] [phone] Kid$Shirt Boyd ([facility])[address] [facility] , [place], [place] [phone] [facility] [place], [place] [phone] [facility] [id number] [place], [place] [phone] [place] [id number] [place], [place] [phone] MARK Baker, Theo/ [facility] [place], [place] [phone] Alexandre Brother [employer] Fvwzntif36[address] [place], [place] [phone] [facility] [place] [facility] [place] [id number] [facility] [place] [phone] [place] F[address] [place], [place] [phone] SUNITHA Min Idndbyli[address] [place], [place] [phone] MARK Baker Dpnxidpe[address] [facility] [place], [place] [phone] Homes [employer] Burial [employer] [facility] Resources [facility] [address] [place], [place] [phone] [place] [address] [place], [place] [phone] [facility] [address] [place], [place] [phone] [place] Lucas Ibnnwks[address] [facility], 3rd Floor [place], [place] [phone] (fax) ARTIS VEGA [facility] [employer] [facility] Fvvwnucd4681 Artis Sterling. JOSE DE JESUS Higginbotham [phone] [facility] Jose De Jesus Good [id number] [phone] [facility] [phone]
[2020-05-21] MEDS: PANTOPRAZOLE 40 MG VIAL IV SCH (12:12)
[2020-05-21] MEDS: NOREPINEPHRINE 32 MG in IV NS 0.9% 218 ML IV PRN ×2 (12:17→16:22)
[2020-05-21] MEDS ORDERED: PHENYLEPHRINE 100 MG in IV NS 0.9% 240 ML IV PRN (15:00)
[2020-05-21] MEDS: AMIODARONE 450 MG in IV D5W 250 ML IV PRN (16:03)
[2020-05-21] MEDS: PROSOURCE / PROSTAT (PYXIS) 30 ML UDC GT SCH ×2 (16:55→20:45)
--- NOTE | 2020-05-21 17:00 | NUR ---
RN NOTES PT STARTED ON TF , CONTINUE TO MONITOR .
[2020-05-21] MEDS: GLUCERNA 1.2 1,000 ML BOTTLE NG PRN (17:01)
--- NOTE | 2020-05-21 18:30 | NUR ---
RN NOTES PT REMAINS INTUBATED AND SEDATED, ON LEVO ,VASOPRESSIN AND AMIODARONE GTT, IVF AT 75CC/HR RUINING , TF AT 20CC/HR RUNNING , TOLERATING WELL AT THIS TIME , SR UP x3, CALL LIGHT WITHIN EASY REACH, WILL ENDOSE TO HL7 DEVELOPER NURSE FOR CONTINUITY OF CARE .
[2020-05-21] MEDS: RIFAMPIN 600 MG in IV NS 0.9% 100 ML IV SCH (20:45)
[2020-05-21] MEDS: ATORVASTATIN 10 MG TABLET PO SCH (21:38)
[2020-05-22] VITALS (90 sets, daily range): BP systolic 85–139; BP diastolic 36–73
[2020-05-22] MEDS: BLOOD SUGAR DIAGNOSTIC 1 EACH STRIP IN SCH ×4 (00:55→17:31)
[2020-05-22] MEDS: methylPREDNISolone SOD SUCC 40 MG/ML VIAL IV SCH ×2 (01:18→13:13)
[2020-05-22] MEDS: VASOPRESSIN INJ 40 UNIT in IV NS 0.9% 38 ML IV PRN ×2 (02:32→17:03)
[2020-05-22 04:30] LABS: BASOPHILS # (AUTO) 0.1 /CMM (0.0-0.2); BASOPHILS % (AUTO) 0.2 % (0.0-2.0); EOSINOPHILS % (AUTO) 0.1 % (0.0-6.0); HEMATOCRIT 27 % (39-51); HEMOGLOBIN 8.9 g/dL (13.5-17.5); LYMPHOCYTES # (AUTO) 0.5 /CMM (0.8-4.8); LYMPHOCYTES % (AUTO) 1.5 % (20.0-44.0); MEAN CORPUSCULAR HGB CONC 33 g/dl (31.0-36.0); MEAN CORPUSCULAR VOLUME 93 fL (80-96); MONOCYTES # (AUTO) 0.4 /CMM (0.1-1.30); MONOCYTES % (AUTO) 1.2 % (2.0-12.0); NEUTROPHILS # (AUTO) 31.2 /CMM (1.8-8.9); PLATELET COUNT (AUTO) 128 /CMM (150-450); RED BLOOD CELL COUNT(AUTO) 2.89 MIL/uL (4.5-6.0)
[2020-05-22 04:32] LABS: WHITE BLOOD COUNT (AUTO) 32.1 K/uL (4.3-11.0)
[2020-05-22 04:35] LABS: ALANINE AMINOTRANSFERASE 52 U/L (12-78); ALKALINE PHOSPHATASE 97 U/L (46-116); ASPARTATE AMINOTRANSFERASE 32 U/L (15-37); BILIRUBIN,TOTAL 0.7 mg/dL (0.2-1.0); CALCIUM, SERUM 7.7 mg/dL (8.5-10.1); CARBON DIOXIDE 19 mmol/L (21-32); CHLORIDE 106 mmol/L (98-107); CREATININE 2.7 mg/dL (0.6-1.3); GLUCOSE 324 mg/dL (74-106); MAGNESIUM 1.9 mg/dL (1.8-2.4); PHOSPHORUS 4.9 mg/dL (2.5-4.9); POTASSIUM 3.8 mmol/L (3.5-5.1); SODIUM SERUM 143 mmol/L (136-145); TOTAL PROTEIN, SERUM 4.4 g/dL (6.4-8.2)
[2020-05-22 04:48] LABS: UREA NITROGEN, BLOOD 115 mg/dL (7-18)
[2020-05-22] MEDS: PROPOFOL 100 ML IV PRN ×2 (04:48→07:58)
[2020-05-22] MEDS: INSULIN REGULAR, HUMAN 100 UNIT/ML 3 ML VIAL SQ PRN ×3 (05:04→17:31)
[2020-05-22 05:46] LABS: LYMPHOCYTES % (MANUAL) 2 % (16-48); MONOCYTES % (MANUAL) 2 % (0-11.0); NEUTROPHILS % (MANUAL) 96 (42-76)
[2020-05-22] MEDS: AMIODARONE 450 MG in IV D5W 250 ML IV PRN ×2 (07:35→21:38)
[2020-05-22] MEDS: LEVOTHYROXINE SODIUM 50 MCG TABLET PO SCH (08:28)
[2020-05-22] MEDS: CITRIC ACID/SODIUM CITRATE (BICITRA)15 ML UDC PO SCH ×4 (08:28→21:37)
[2020-05-22] MEDS: FERROUS SULFATE (325 MG) 325 MG/TAB TABLET PO SCH (08:28)
[2020-05-22] MEDS: MULTIVITAMINS,THERAGRAN 1 UDTAB TABLET PO SCH (08:28)
[2020-05-22] MEDS: ASCORBIC ACID 500 MG TABLET PO SCH (08:28)
[2020-05-22] MEDS: PROSOURCE / PROSTAT (PYXIS) 30 ML UDC GT SCH ×4 (08:29→21:39)
[2020-05-22] MEDS: CALCIUM CARB 250MG /VITAMIN D 1 UDTAB PO SCH (08:29)
[2020-05-22] MEDS: POLYVINYL ALCOHOL 15 ML BOTTLE EACHEYE SCH ×2 (08:30→16:05)
[2020-05-22] MEDS: MEROPENEM 1 G in IV NS 0.9% 100 ML IV SCH ×2 (08:30→21:38)
[2020-05-22] MEDS ORDERED: VANCOMYCIN 0.75 GM in IV D5W 250 ML IV SCH (09:00)
[2020-05-22] MEDS: HYDROGEL DRESSING 90 GM TUBE TP SCH (09:05)
[2020-05-22] MEDS: PANTOPRAZOLE 40 MG/PACK PACK GT SCH (09:11)
[2020-05-22] MEDS: ALBUMIN 25% 25 GM in PREMIX 1 EA IV SCH ×3 (09:13→21:37)
[2020-05-22] MEDS: MUPIROCIN OINT 2% 22 GM TUBE NS SCH ×2 (10:29→21:42)
[2020-05-22] MEDS: IV NS 0.9% 1,000 ML IV PRN (13:13)
[2020-05-22] MEDS ORDERED: FENTANYL CITRATE IV 1,250 MCG in IV NS 0.9% 225 ML IV PRN ×2 (14:00→17:00)
[2020-05-22] MEDS ORDERED: FENTANYL CITRAT IV 2,500 MCG in IV NS 0.9% 200 ML IV PRN ×2 (14:30→17:30)
[2020-05-22] MEDS: PRECEDEX 400 MCG/100 ML BOTTLE 100 ML IV PRN ×2 (14:42→20:26)
--- NOTE | 2020-05-22 18:22 | NUR ---
RN NOTES PT REMAINS INTUBATED AND SEDATED, ON VASOPRESSIN AND AMIODARONE GTT, IVF AT 75CC/HR RUINING , TF AT 30CC/HR RUNNING , NO RESIDUAL NOTED, SR UP x3, CALL LIGHT WITHIN EASY REACH, WILL ENDOSE TO ARMOR RECONNAISSANCE SPECIALIST NURSE FOR CONTINUITY OF CARE .
--- NOTE | 2020-05-22 20:47 | NUR ---
director of curriculum and instruction.received the pt rest on the bed. orally intubated. sedated with precedex 0.1, ett #7,lip 23, ac 26,tv 500,fio2 40%,peep 5. sat 98%. no acute distress noted. nurse transplant showing afib. iv rt upper arm mid line. precedex 0.1, marina 0.04u/h,. amio 0.05, ns 75 ml/h, fc patent. urine draining. hob elevated, ogt feeding glucerna 30ml/h. goal is 35ml/h. dm soft wrist restraint checked and released. no injury or redness noted. will continue to monitor vitals.
[2020-05-22] MEDS: ATORVASTATIN 10 MG TABLET PO SCH (21:37)
[2020-05-22] MEDS: RIFAMPIN 600 MG in IV NS 0.9% 100 ML IV SCH (21:38)
[2020-05-22] MEDS: NYSTATIN/TRIAMCIN CREAM 15 GM TUBE TP SCH (21:40)
[2020-05-23] VITALS (77 sets, daily range): BP systolic 69–141; BP diastolic 28–81
--- NOTE | 2020-05-23 01:51 | NUR ---
agricultural economist. remaining same vent setting tolerated well. sat 98%. no acute distress noted. employment and claims aide showing afib. controlled. no changs, will continue to monitor vitals.
[2020-05-23] MEDS: methylPREDNISolone SOD SUCC 40 MG/ML VIAL IV SCH ×2 (02:14→11:41)
[2020-05-23] MEDS: ALBUMIN 25% 25 GM in PREMIX 1 EA IV SCH (02:17)
[2020-05-23] MEDS ORDERED: VASOPRESSIN INJ 20 UNIT/ML VIAL ONE (03:02)
--- NOTE | 2020-05-23 03:28 | NUR ---
curriculum facilitator. am care given. linen changed. remaining same vent setting tolerated well. sat 98%. no acute distress noted. drop hammer pile driver operator showing nsr, iv rt upper arm mid line, vaso 0.04u/h. ns 75ml/h,precedex 0.1mcg/kg/min amino 0.5mg.ogt feeding tolerated well. dm soft wrist restraint checked and released no injury or redness noted. fc patent. wound dressing done, turn and reposition frequent will continue to monitor vitals
[2020-05-23] MEDS: VASOPRESSIN INJ 40 UNIT in IV NS 0.9% 38 ML IV PRN (04:45)
[2020-05-23 05:30] LABS: ALANINE AMINOTRANSFERASE 32 U/L (12-78); ALBUMIN 1.8 g/dL (3.4-5.0); ALKALINE PHOSPHATASE 77 U/L (46-116); ASPARTATE AMINOTRANSFERASE 17 U/L (15-37); BILIRUBIN,TOTAL 0.8 mg/dL (0.2-1.0); CALCIUM, SERUM 7.8 mg/dL (8.5-10.1); CARBON DIOXIDE 18 mmol/L (21-32); CHLORIDE 108 mmol/L (98-107); CREATININE 2.7 mg/dL (0.6-1.3); GLUCOSE 293 mg/dL (74-106); MAGNESIUM 1.9 mg/dL (1.8-2.4); PHOSPHORUS 4.3 mg/dL (2.5-4.9); SODIUM SERUM 144 mmol/L (136-145); TOTAL PROTEIN, SERUM 4.5 g/dL (6.4-8.2)
[2020-05-23] MEDS: INSULIN REGULAR, HUMAN 100 UNIT/ML 3 ML VIAL SQ PRN ×3 (05:38→17:03)
[2020-05-23 05:43] LABS: POTASSIUM 2.7 mmol/L (3.5-5.1); UREA NITROGEN, BLOOD 118 mg/dL (7-18)
[2020-05-23] MEDS: BLOOD SUGAR DIAGNOSTIC 1 EACH STRIP IN SCH ×4 (06:23→17:02)
[2020-05-23 07:11] LABS: BASOPHILS # (AUTO) 0.1 /CMM (0.0-0.2); BASOPHILS % (AUTO) 0.5 % (0.0-2.0); HEMATOCRIT 21 % (39-51); LYMPHOCYTES # (AUTO) 0.4 /CMM (0.8-4.8); MEAN CORPUSCULAR HGB CONC 33 g/dl (31.0-36.0); MEAN CORPUSCULAR VOLUME 93 fL (80-96); MONOCYTES # (AUTO) 0.3 /CMM (0.1-1.30); MONOCYTES % (AUTO) 1.5 % (2.0-12.0); PLATELET COUNT (AUTO) 69 /CMM (150-450); RED BLOOD CELL COUNT(AUTO) 2.19 MIL/uL (4.5-6.0); WHITE BLOOD COUNT (AUTO) 21.1 K/uL (4.3-11.0)
[2020-05-23 07:17] LABS: HEMOGLOBIN 6.7 g/dL (13.5-17.5)
--- NOTE | 2020-05-23 07:25 | NUR ---
JUICE STANDARDIZER. PT HEMOGLOBIN 6.11/06. PLT 69. NOTIFIED JACQUELINE CHEN. NEW ORDER RECEIVED.
[2020-05-23] MEDS ORDERED: POTASSIUM CHLORIDE 20 MEQ POWDER PACKET GT ONE (07:30)
[2020-05-23] MEDS: LEVOTHYROXINE SODIUM 50 MCG TABLET PO SCH (07:58)
[2020-05-23] MEDS: POTASSIUM CL. PREMIX PERIPHER. 50 ML IV SCH ×4 (07:58→11:41)
[2020-05-23] MEDS: PANTOPRAZOLE 40 MG/PACK PACK GT SCH ×3 (08:34→16:23)
[2020-05-23] MEDS: PROSOURCE / PROSTAT (PYXIS) 30 ML UDC GT SCH ×4 (08:34→21:31)
[2020-05-23] MEDS: CITRIC ACID/SODIUM CITRATE (BICITRA)15 ML UDC PO SCH ×4 (08:34→21:00)
[2020-05-23] MEDS: MEROPENEM 500 MG in IV NS 0.9% 50 ML IV SCH ×2 (08:34→21:00)
[2020-05-23] MEDS: FERROUS SULFATE (325 MG) 325 MG/TAB TABLET PO SCH (08:34)
[2020-05-23] MEDS: ASCORBIC ACID 500 MG TABLET PO SCH (08:35)
[2020-05-23] MEDS: MULTIVITAMINS,THERAGRAN 1 UDTAB TABLET PO SCH (08:35)
[2020-05-23] MEDS: NYSTATIN/TRIAMCIN CREAM 15 GM TUBE TP SCH ×2 (08:35→16:23)
[2020-05-23] MEDS: HYDROGEL DRESSING 90 GM TUBE TP SCH (08:35)
[2020-05-23] MEDS: CALCIUM CARB 250MG /VITAMIN D 1 UDTAB PO SCH (08:35)
[2020-05-23] MEDS: MUPIROCIN OINT 2% 22 GM TUBE NS SCH ×2 (08:35→21:31)
[2020-05-23] MEDS: POLYVINYL ALCOHOL 15 ML BOTTLE EACHEYE SCH ×2 (08:36→16:23)
[2020-05-23] MEDS: AMIODARONE HCL 200 MG TABLET PO SCH (09:33)
--- NOTE | 2020-05-23 09:52 | NUR ---
RN NOTE Received patient awake, on Precedex 0.1, will titrate as ordered. On Amio for Afib, on IVF infusing as ordered. Right NGT intact. Noted with 1 reddish BM, sent to lab. Held TF. S/E by Eva CHEN, with order to hold TF, hold any blood thinners. Awaiting 1PRBC to be available. Consent for BT in chart. S/E by Dr. Serrano, still noted with low BP despite on Vaso 0.04. Per MD, give Amio /GT then DC amio drip, and may restart Milan, called pharmacy to deliver. Plan for SAVI by Dr. Serrano, obtained consent from Althea. [id number], still awaiting Milan for low BP, Amio /GT given, DCd Amio drip.
[2020-05-23] MEDS: PHENYLEPHRINE 100 MG in IV NS 0.9% 240 ML IV PRN (10:09)
--- NOTE | 2020-05-23 11:38 | NUR ---
RN NOTE Informed Dr. Serrano for VS more stable now, but SAVI postponed for tomorrow 0730, CN aware.
[2020-05-23 12:07] LABS: BAND % (MANUAL) 1 % (0.0-5.0); LYMPHOCYTES % (MANUAL) 3 % (16-48); NEUTROPHILS % (MANUAL) 96 (42-76)
[2020-05-23] MEDS: PRECEDEX 400 MCG/100 ML BOTTLE 100 ML IV PRN ×3 (12:59→23:16)
[2020-05-23 13:10] LABS: OCCULT BLOOD STOOL NEGATIVE (NEGATIVE)
[2020-05-23] MEDS: IV NS 0.9% 1,000 ML IV PRN (17:42)
[2020-05-23] MEDS: ATORVASTATIN 10 MG TABLET PO SCH (21:31)
[2020-05-23] MEDS: RIFAMPIN 600 MG in IV NS 0.9% 100 ML IV SCH (21:31)
[2020-05-23] MEDS: DAPTOMYCIN 500 MG in IV NS 0.9% 50 ML IV SCH (22:00)
[2020-05-24] VITALS (72 sets, daily range): BP systolic 75–153; BP diastolic 42–136
[2020-05-24] MEDS: BLOOD SUGAR DIAGNOSTIC 1 EACH STRIP IN SCH ×4 (00:01→17:08)
[2020-05-24] MEDS: INSULIN REGULAR, HUMAN 100 UNIT/ML 3 ML VIAL SQ PRN ×3 (00:42→18:35)
[2020-05-24] MEDS: PRECEDEX 400 MCG/100 ML BOTTLE 100 ML IV PRN ×5 (04:30→20:45)
[2020-05-24 05:04] LABS: BASOPHILS % (AUTO) 0.2 % (0.0-2.0); EOSINOPHILS % (AUTO) 0.3 % (0.0-6.0); HEMATOCRIT 25 % (39-51); HEMOGLOBIN 8.2 g/dL (13.5-17.5); LYMPHOCYTES # (AUTO) 0.5 /CMM (0.8-4.8); LYMPHOCYTES % (AUTO) 2.7 % (20.0-44.0); MEAN CORPUSCULAR HGB CONC 33 g/dl (31.0-36.0); MEAN CORPUSCULAR VOLUME 94 fL (80-96); MONOCYTES # (AUTO) 0.3 /CMM (0.1-1.30); MONOCYTES % (AUTO) 1.9 % (2.0-12.0); NEUTROPHILS # (AUTO) 17.4 /CMM (1.8-8.9); NEUTROPHILS % (AUTO) 94.9 % (43.0-81.0); PLATELET COUNT (AUTO) 67 /CMM (150-450); RED BLOOD CELL COUNT(AUTO) 2.68 MIL/uL (4.5-6.0); WHITE BLOOD COUNT (AUTO) 18.4 K/uL (4.3-11.0)
[2020-05-24 05:19] LABS: IRON, SERUM 25 ug/dl (50-175); TOTAL IRON BINDING CAPACITY 90 ug/dl (250-450)
[2020-05-24 05:29] LABS: CALCIUM, SERUM 7.7 mg/dL (8.5-10.1); CARBON DIOXIDE 17 mmol/L (21-32); CHLORIDE 111 mmol/L (98-107); CREATININE 2.6 mg/dL (0.6-1.3); GLUCOSE 261 mg/dL (74-106); MAGNESIUM 1.9 mg/dL (1.8-2.4); PHOSPHORUS 4.1 mg/dL (2.5-4.9); POTASSIUM 3.1 mmol/L (3.5-5.1); SODIUM SERUM 146 mmol/L (136-145)
[2020-05-24 05:39] LABS: UREA NITROGEN, BLOOD 111 mg/dL (7-18)
[2020-05-24] MEDS: DOXYCYCLINE HYCLATE (100 MG) 100 MG TABLET NG SCH ×3 (06:00→17:12)
[2020-05-24] MEDS: POTASSIUM CL. PREMIX PERIPHER. 50 ML IV SCH ×4 (07:30→11:28)
[2020-05-24] MEDS: PHENYLEPHRINE 100 MG in IV NS 0.9% 240 ML IV PRN (07:53)
[2020-05-24] MEDS ORDERED: MIDAZOLAM HCL 2 MG/2ML VIAL ONE (07:59)
[2020-05-24] MEDS ORDERED: MIDAZOLAM HCL 2 MG/2ML VIAL IV ONE (08:00)
[2020-05-24] MEDS: CITRIC ACID/SODIUM CITRATE (BICITRA)15 ML UDC PO SCH ×4 (08:28→21:00)
[2020-05-24] MEDS: ASCORBIC ACID 500 MG TABLET PO SCH (08:29)
[2020-05-24] MEDS: FERROUS SULFATE (325 MG) 325 MG/TAB TABLET PO SCH (08:29)
[2020-05-24] MEDS: CALCIUM CARB 250MG /VITAMIN D 1 UDTAB PO SCH (08:30)
[2020-05-24] MEDS: MEROPENEM 500 MG in IV NS 0.9% 50 ML IV SCH ×2 (08:36→21:00)
[2020-05-24] MEDS: PANTOPRAZOLE 40 MG/PACK PACK GT SCH ×2 (08:36→17:10)
[2020-05-24] MEDS: methylPREDNISolone SOD SUCC 40 MG/ML VIAL IV SCH (08:36)
[2020-05-24] MEDS: MULTIVITAMINS,THERAGRAN 1 UDTAB TABLET PO SCH (08:36)
[2020-05-24] MEDS: PROSOURCE / PROSTAT (PYXIS) 30 ML UDC GT SCH ×4 (08:36→21:00)
[2020-05-24] MEDS: NYSTATIN/TRIAMCIN CREAM 15 GM TUBE TP SCH ×2 (08:37→17:08)
[2020-05-24] MEDS: HYDROGEL DRESSING 90 GM TUBE TP SCH (08:37)
[2020-05-24] MEDS: POLYVINYL ALCOHOL 15 ML BOTTLE EACHEYE SCH ×2 (08:38→17:07)
[2020-05-24] MEDS: MUPIROCIN OINT 2% 22 GM TUBE NS SCH ×2 (08:38→21:00)
[2020-05-24] MEDS: LEVOTHYROXINE SODIUM 50 MCG TABLET PO SCH (08:43)
[2020-05-24] MEDS: AMIODARONE HCL 200 MG TABLET PO SCH (08:44)
[2020-05-24] MEDS: IV NS 0.9% 250 ML IV PRN (10:56)
[2020-05-24 13:24] LABS: LYMPHOCYTES % (MANUAL) 3 % (16-48); MONOCYTES % (MANUAL) 2 % (0-11.0); NEUTROPHILS % (MANUAL) 95 (42-76)
[2020-05-24] MEDS: ATORVASTATIN 10 MG TABLET PO SCH (21:30)
[2020-05-24] MEDS: RIFAMPIN 600 MG in IV NS 0.9% 100 ML IV SCH (21:30)
[2020-05-25] VITALS (86 sets, daily range): BP systolic 62–145; BP diastolic 30–95
[2020-05-25] MEDS: BLOOD SUGAR DIAGNOSTIC 1 EACH STRIP IN SCH ×4 (00:28→18:28)
[2020-05-25] MEDS: INSULIN REGULAR, HUMAN 100 UNIT/ML 3 ML VIAL SQ PRN ×3 (00:29→18:29)
[2020-05-25] MEDS: PRECEDEX 400 MCG/100 ML BOTTLE 100 ML IV PRN ×4 (01:59→23:21)
[2020-05-25] MEDS: DOXYCYCLINE HYCLATE (100 MG) 100 MG TABLET NG SCH ×2 (05:09→17:38)
[2020-05-25 06:08] LABS: BASOPHILS % (AUTO) 0.2 % (0.0-2.0); EOSINOPHILS % (AUTO) 0.3 % (0.0-6.0); HEMATOCRIT 29 % (39-51); HEMOGLOBIN 9.1 g/dL (13.5-17.5); LYMPHOCYTES # (AUTO) 0.7 /CMM (0.8-4.8); LYMPHOCYTES % (AUTO) 3.5 % (20.0-44.0); MEAN CORPUSCULAR HGB CONC 32 g/dl (31.0-36.0); MEAN CORPUSCULAR VOLUME 96 fL (80-96); MONOCYTES # (AUTO) 0.6 /CMM (0.1-1.30); MONOCYTES % (AUTO) 2.8 % (2.0-12.0); NEUTROPHILS # (AUTO) 19.3 /CMM (1.8-8.9); NEUTROPHILS % (AUTO) 93.2 % (43.0-81.0); PLATELET COUNT (AUTO) 76 /CMM (150-450); RED BLOOD CELL COUNT(AUTO) 2.97 MIL/uL (4.5-6.0); WHITE BLOOD COUNT (AUTO) 20.7 K/uL (4.3-11.0)
[2020-05-25 06:52] LABS: CARBON DIOXIDE 18 mmol/L (21-32); CHLORIDE 113 mmol/L (98-107); CREATININE 2.6 mg/dL (0.6-1.3); GLUCOSE 204 mg/dL (74-106); SODIUM SERUM 147 mmol/L (136-145)
[2020-05-25 07:16] LABS: UREA NITROGEN, BLOOD 112 mg/dL (7-18)
[2020-05-25] MEDS: GLUCERNA 1.2 1,000 ML BOTTLE NG PRN ×2 (07:24→17:39)
[2020-05-25] MEDS: LEVOTHYROXINE SODIUM 50 MCG TABLET PO SCH (07:30)
[2020-05-25] MEDS: methylPREDNISolone SOD SUCC 40 MG/ML VIAL IV SCH (08:28)
[2020-05-25] MEDS: MEROPENEM 500 MG in IV NS 0.9% 50 ML IV SCH ×2 (08:28→19:45)
[2020-05-25] MEDS: MUPIROCIN OINT 2% 22 GM TUBE NS SCH ×2 (08:29→21:22)
[2020-05-25] MEDS: HYDROGEL DRESSING 90 GM TUBE TP SCH (08:30)
[2020-05-25] MEDS: NYSTATIN/TRIAMCIN CREAM 15 GM TUBE TP SCH ×2 (08:30→16:41)
[2020-05-25] MEDS: POLYVINYL ALCOHOL 15 ML BOTTLE EACHEYE SCH ×2 (08:31→16:40)
[2020-05-25] MEDS: FERROUS SULFATE (325 MG) 325 MG/TAB TABLET PO SCH (09:00)
[2020-05-25] MEDS: CITRIC ACID/SODIUM CITRATE (BICITRA)15 ML UDC PO SCH ×4 (09:00→21:23)
[2020-05-25] MEDS: ASCORBIC ACID 500 MG TABLET PO SCH (09:00)
[2020-05-25] MEDS: PROSOURCE / PROSTAT (PYXIS) 30 ML UDC GT SCH ×4 (09:00→21:24)
[2020-05-25] MEDS: CALCIUM CARB 250MG /VITAMIN D 1 UDTAB PO SCH (09:00)
[2020-05-25] MEDS: MULTIVITAMINS,THERAGRAN 1 UDTAB TABLET PO SCH (09:00)
[2020-05-25] MEDS: PANTOPRAZOLE 40 MG/PACK PACK GT SCH ×2 (09:00→17:36)
[2020-05-25] MEDS: AMIODARONE HCL 200 MG TABLET PO SCH (10:22)
[2020-05-25] MEDS ORDERED: MIDAZOLAM HCL 2 MG/2ML VIAL ONE (15:45)
[2020-05-25] MEDS ORDERED: ROCURONIUM BROMIDE 50 MG/5 ML ONE (15:45)
[2020-05-25] MEDS: PHENYLEPHRINE 100 MG in IV NS 0.9% 240 ML IV PRN (15:48)
--- NOTE | 2020-05-25 16:36 | NUR ---
RN NOTES S/P EGD, NO SIGNS OF DISTRESS, MD REMOVED OG TUBE. WILL CONTINUE TO MONITOR.
--- NOTE | 2020-05-25 17:00 | NUR ---
RN NOTES REINSERTED OG TUBE, VERIFIED WITH 2 RN FOR PLACEMENT, PER DR. RAMOS TO RESUME TF, WILL CONTINUE TO MONITOR.
--- NOTE | 2020-05-25 20:21 | NUR ---
ICU/SUPERVISOR REFINING THERE IS NEW ORDER FROM [facility]REEZY MANCERA, SHE D/C'D RIPAFINEN AND NEW ORDER FOR MYCAMINE. MADE CHARGE NURSE AWARE OF THIS, WHO THEN PRINTED OUT THE ORDER AND FAXED DOWN TO NURSING OFFICE TO OR DIRECTOR. PHARMACY IS GONE HOME FOR THE NIGHT AND THIS IS NOT STOCKED ON THE FLOOR. WAITING FOR HOUSE SUP TO BRING UP FROM [facility].
[2020-05-25] MEDS ORDERED: MICAFUNGIN SODIUM 100 MG VIAL IV ONE (20:47)
[2020-05-25] MEDS: MICAFUNGIN SODIUM 100 MG in IV NS 0.9% 100 ML IV SCH (20:50)
[2020-05-25] MEDS: DAPTOMYCIN 500 MG in IV NS 0.9% 50 ML IV SCH (21:00)
--- NOTE | 2020-05-25 21:08 | NUR ---
ICU/AUTOMOBILE SALES REPRESENTATIVE CUBICIN IVP IS NOT AVAILABLE IN [facility] IS WHAT I WAS TOLD BY CHARGE NURSE. CHARGE NURSE NOTIFIED ME TO MAKE NOTE NON-ADMINISTER. DUE TO THE PHARMACY NOT HERE AT NIGHT AND ALSO THEY WILL NOT COME FROM HOME TO MAKE MEDICATION.
[2020-05-25] MEDS: ATORVASTATIN 10 MG TABLET PO SCH (21:23)
[2020-05-26] VITALS (45 sets, daily range): BP systolic 72–150; BP diastolic 32–94
[2020-05-26] MEDS: BLOOD SUGAR DIAGNOSTIC 1 EACH STRIP IN SCH ×4 (00:41→18:07)
[2020-05-26] MEDS: INSULIN REGULAR, HUMAN 100 UNIT/ML 3 ML VIAL SQ PRN ×4 (00:50→18:14)
[2020-05-26] MEDS: IV NS 0.9% 250 ML IV PRN ×2 (03:10→21:46)
[2020-05-26] MEDS: PHENYLEPHRINE 100 MG in IV NS 0.9% 240 ML IV PRN ×3 (03:17→19:44)
[2020-05-26] MEDS: PRECEDEX 400 MCG/100 ML BOTTLE 100 ML IV PRN ×3 (04:11→21:33)
[2020-05-26 04:43] LABS: BASOPHILS % (AUTO) 0.1 % (0.0-2.0); EOSINOPHILS % (AUTO) 0.1 % (0.0-6.0); HEMATOCRIT 32 % (39-51); HEMOGLOBIN 10.2 g/dL (13.5-17.5); LYMPHOCYTES # (AUTO) 0.3 /CMM (0.8-4.8); MEAN CORPUSCULAR HGB CONC 32 g/dl (31.0-36.0); MEAN CORPUSCULAR VOLUME 96 fL (80-96); MONOCYTES # (AUTO) 0.4 /CMM (0.1-1.30); MONOCYTES % (AUTO) 2.6 % (2.0-12.0); NEUTROPHILS # (AUTO) 14.2 /CMM (1.8-8.9); NEUTROPHILS % (AUTO) 95.2 % (43.0-81.0); PLATELET COUNT (AUTO) 90 /CMM (150-450); RED BLOOD CELL COUNT(AUTO) 3.38 MIL/uL (4.5-6.0)
[2020-05-26 04:49] LABS: CALCIUM, SERUM 8.3 mg/dL (8.5-10.1); CARBON DIOXIDE 19 mmol/L (21-32); CHLORIDE 112 mmol/L (98-107); CREATININE 2.9 mg/dL (0.6-1.3); GLUCOSE 224 mg/dL (74-106); POTASSIUM 3.6 mmol/L (3.5-5.1); SODIUM SERUM 148 mmol/L (136-145)
[2020-05-26 05:07] LABS: UREA NITROGEN, BLOOD 121 mg/dL (7-18)
[2020-05-26] MEDS: DOXYCYCLINE HYCLATE (100 MG) 100 MG TABLET NG SCH ×2 (05:49→17:05)
[2020-05-26] MEDS: FERROUS SULFATE (325 MG) 325 MG/TAB TABLET PO SCH (08:15)
[2020-05-26] MEDS: CITRIC ACID/SODIUM CITRATE (BICITRA)15 ML UDC PO SCH ×4 (08:15→21:33)
[2020-05-26] MEDS: DAPTOMYCIN 500 MG in IV NS 0.9% 50 ML IV SCH (08:15)
[2020-05-26] MEDS: CALCIUM CARB 250MG /VITAMIN D 1 UDTAB PO SCH (08:15)
[2020-05-26] MEDS: PANTOPRAZOLE 40 MG/PACK PACK GT SCH ×2 (08:15→16:16)
[2020-05-26] MEDS: ASCORBIC ACID 500 MG TABLET PO SCH (08:15)
[2020-05-26] MEDS: methylPREDNISolone SOD SUCC 40 MG/ML VIAL IV SCH (08:16)
[2020-05-26] MEDS: SUCRALFATE 1 G/10 ML UDC GT SCH ×3 (08:16→16:16)
[2020-05-26] MEDS: LEVOTHYROXINE SODIUM 50 MCG TABLET PO SCH (08:17)
[2020-05-26] MEDS: AMIODARONE HCL 200 MG TABLET PO SCH (08:17)
[2020-05-26] MEDS: MULTIVITAMINS,THERAGRAN 1 UDTAB TABLET PO SCH (08:17)
[2020-05-26] MEDS: PROSOURCE / PROSTAT (PYXIS) 30 ML UDC GT SCH ×4 (08:18→21:36)
[2020-05-26] MEDS: MUPIROCIN OINT 2% 22 GM TUBE NS SCH ×2 (08:18→21:36)
[2020-05-26] MEDS: POLYVINYL ALCOHOL 15 ML BOTTLE EACHEYE SCH ×2 (08:18→16:17)
[2020-05-26] MEDS: NYSTATIN/TRIAMCIN CREAM 15 GM TUBE TP SCH ×2 (08:19→16:17)
[2020-05-26] MEDS: HYDROGEL DRESSING 90 GM TUBE TP SCH (08:19)
[2020-05-26] MEDS: MEROPENEM 500 MG in IV NS 0.9% 50 ML IV SCH ×2 (08:23→21:34)
[2020-05-26] MEDS: MICAFUNGIN SODIUM 100 MG in IV NS 0.9% 100 ML IV SCH (19:40)
[2020-05-26] MEDS: ATORVASTATIN 10 MG TABLET PO SCH (21:33)
[2020-05-27] VITALS (68 sets, daily range): BP systolic 81–128; BP diastolic 33–65
[2020-05-27] MEDS: BLOOD SUGAR DIAGNOSTIC 1 EACH STRIP IN SCH ×5 (00:57→23:55)
[2020-05-27] MEDS: INSULIN REGULAR, HUMAN 100 UNIT/ML 3 ML VIAL SQ PRN ×4 (01:06→17:27)
[2020-05-27] MEDS: PRECEDEX 400 MCG/100 ML BOTTLE 100 ML IV PRN ×3 (04:10→21:10)
[2020-05-27] MEDS ORDERED: PHENYLEPHRINE 10 MG/ML VIAL ONE (04:42)
--- NOTE | 2020-05-27 04:45 | NUR ---
PURCHASING MANAGER NOTES MEDICATION PHENYLEPHRINE OVERRIDE PERFORMED BY, MIXED BY CHARGE NURSE ED. MEDICATION ADMINISTERED ORDERED
[2020-05-27] MEDS: PHENYLEPHRINE 100 MG in IV NS 0.9% 240 ML IV PRN ×3 (04:54→23:55)
[2020-05-27 05:16] LABS: BASOPHILS % (AUTO) 0.2 % (0.0-2.0); EOSINOPHILS % (AUTO) 0.2 % (0.0-6.0); HEMATOCRIT 31 % (39-51); LYMPHOCYTES # (AUTO) 0.6 /CMM (0.8-4.8); LYMPHOCYTES % (AUTO) 4.6 % (20.0-44.0); MEAN CORPUSCULAR HGB CONC 32 g/dl (31.0-36.0); MEAN CORPUSCULAR VOLUME 95 fL (80-96); MONOCYTES # (AUTO) 0.3 /CMM (0.1-1.30); MONOCYTES % (AUTO) 2.3 % (2.0-12.0); NEUTROPHILS # (AUTO) 11.2 /CMM (1.8-8.9); NEUTROPHILS % (AUTO) 92.7 % (43.0-81.0); RED BLOOD CELL COUNT(AUTO) 3.27 MIL/uL (4.5-6.0)
[2020-05-27] MEDS: GLUCERNA 1.2 1,000 ML BOTTLE NG PRN (05:21)
[2020-05-27 06:01] LABS: CALCIUM, SERUM 8.4 mg/dL (8.5-10.1); CARBON DIOXIDE 18 mmol/L (21-32); CHLORIDE 112 mmol/L (98-107); GLUCOSE 277 mg/dL (74-106); MAGNESIUM 1.9 mg/dL (1.8-2.4); PHOSPHORUS 5.6 mg/dL (2.5-4.9); POTASSIUM 3.7 mmol/L (3.5-5.1); SODIUM SERUM 147 mmol/L (136-145)
[2020-05-27 06:03] LABS: UREA NITROGEN, BLOOD 124 mg/dL (7-18)
[2020-05-27 06:13] LABS: PLATELET COUNT (AUTO) 86 /CMM (150-450)
[2020-05-27] MEDS: DOXYCYCLINE HYCLATE (100 MG) 100 MG TABLET NG SCH ×2 (06:13→17:26)
--- NOTE | 2020-05-27 07:00 | NUR ---
ROUTE RIDER SUPERVISOR CLOSING NOTES NO ACUTE CHANGES NOTED THROUGHOUT SHIFT. PATIENT REMAINS ORALLY INTUBATED, ON MECHANICAL VENTILATION, SEDATED LIGHTLY ON PRECEDEX DRIP, PERIODICALLY ABLE TO FOLLOW VERY BASIC COMMANDS, SUCH NODDING YES/NO, OPENING AND CLOSING HANDS ON COMMAND. REMAINS ON PRECEDEX DRIP @ 0.4MCG/KG/HR, AND NEOSYNEPHRINE DRIP @ 1.4MCG/KG/MIN. WILL ENDORSE THE PATIENT TO THE DAY SHIFT NURSE FOR CONTINUITY OF CARE
--- NOTE | 2020-05-27 07:40 | NUR ---
RN NOTE RECEIVED PT INTUBATED AND CALM&COOPERATIVE, TOLERATING VENT SETTINGS WELL, PRECEDEX AND KM RUNNING, N/S TKO, NGT IN PLACE WITH GLUCERNA AT 35ML/HR TOLERATING WELL, MIDLINES X2 INTACT, EAST DRAINING ADEQUATELY, COMFORTABLE AT THIS TIME, CARES CONTINUE THIS SHIFT.
[2020-05-27] MEDS: MULTIVITAMINS,THERAGRAN 1 UDTAB TABLET PO SCH (08:14)
[2020-05-27] MEDS: ASCORBIC ACID 500 MG TABLET PO SCH (08:14)
[2020-05-27] MEDS: FERROUS SULFATE (325 MG) 325 MG/TAB TABLET PO SCH (08:14)
[2020-05-27] MEDS: CALCIUM CARB 250MG /VITAMIN D 1 UDTAB PO SCH (08:14)
[2020-05-27] MEDS: LEVOTHYROXINE SODIUM 50 MCG TABLET PO SCH (08:14)
[2020-05-27] MEDS: SUCRALFATE 1 G/10 ML UDC GT SCH ×3 (08:15→17:20)
[2020-05-27] MEDS: MEROPENEM 500 MG in IV NS 0.9% 50 ML IV SCH ×2 (08:15→21:10)
[2020-05-27] MEDS: CITRIC ACID/SODIUM CITRATE (BICITRA)15 ML UDC PO SCH ×4 (08:15→21:10)
[2020-05-27] MEDS: methylPREDNISolone SOD SUCC 40 MG/ML VIAL IV SCH (08:15)
[2020-05-27] MEDS: PROSOURCE / PROSTAT (PYXIS) 30 ML UDC GT SCH ×4 (08:16→21:12)
[2020-05-27] MEDS: AMIODARONE HCL 200 MG TABLET PO SCH (08:17)
[2020-05-27] MEDS: MUPIROCIN OINT 2% 22 GM TUBE NS SCH ×2 (08:19→21:12)
[2020-05-27] MEDS: POLYVINYL ALCOHOL 15 ML BOTTLE EACHEYE SCH ×2 (08:46→17:20)
[2020-05-27] MEDS: NYSTATIN/TRIAMCIN CREAM 15 GM TUBE TP SCH ×2 (08:47→17:21)
[2020-05-27] MEDS: PANTOPRAZOLE 40 MG/PACK PACK GT SCH ×2 (08:47→17:20)
[2020-05-27] MEDS: HYDROGEL DRESSING 90 GM TUBE TP SCH (08:47)
--- NOTE | 2020-05-27 08:48 | NUR ---
VENT CHANGES BELOW MADE PER DR. GAUTAM FOR WEANING TRIAL: SIMV 4 PS 15 PEEP +5 FIO2 28% PT IS AWAKE AND FOLLOW COMMANDS WITH SPO2 100%, RATE 17 BPM, HR 94 - 97 BPM. Addendum: 05/27/20 at 0850 by MIKO CASTELLANOS RT Amended: Links added.
--- NOTE | 2020-05-27 08:59 | NUR ---
PLACE BACK TO AC 26, VT 500, 28%, PEEP + DUE TO 47 RESPIRATIONS. RN AWARE ON VENT CHANGES MADE. Addendum: 05/27/20 at 0900 by MIKO CASTELLANOS RT Amended: Links added.
--- NOTE | 2020-05-27 19:01 | NUR ---
RN CLOSING NOTES PATIENT IS SENSITIVE TO KM AND TITRATED TO 1.1 THIS SHIFT, PRECEDEX NOW AT 0.3, SIMV FAILED THIS MORNING SO BACK TO AC SETTINGS WITH LOWER FI02 OF 28% AND PEEP OF 5. URINE OUTPUT IS BORDERLINE. DRESSINGS CHANGED AND PHOTOS TAKEN. WOUND CARE CONSULT. TOLERATING FEEDS. NO OTHER CHANGES. ENDORSED TO NIGHT RN.
[2020-05-27] MEDS: MICAFUNGIN SODIUM 100 MG in IV NS 0.9% 100 ML IV SCH (19:53)
[2020-05-27] MEDS: ATORVASTATIN 10 MG TABLET PO SCH (21:11)
--- NOTE | 2020-05-27 21:40 | NUR ---
EXPORT PACKER NOTES RECEIVED CALL FROM PATIENT'S DAUGHTER LONG HARTMAN. FAMILY UPDATED BY RN REGARDING CURRENT PLAN OF CARE, QUESTIONS ANSWERED ABLE
[2020-05-28] VITALS (96 sets, daily range): BP systolic 75–143; BP diastolic 27–100
[2020-05-28] MEDS: INSULIN REGULAR, HUMAN 100 UNIT/ML 3 ML VIAL SQ PRN ×4 (00:06→17:18)
[2020-05-28] MEDS: IV NS 0.9% 250 ML IV PRN (03:02)
[2020-05-28 04:54] LABS: BASOPHILS % (AUTO) 0.1 % (0.0-2.0); EOSINOPHILS % (AUTO) 0.2 % (0.0-6.0); HEMATOCRIT 29 % (39-51); HEMOGLOBIN 9.2 g/dL (13.5-17.5); LYMPHOCYTES # (AUTO) 0.6 /CMM (0.8-4.8); LYMPHOCYTES % (AUTO) 6.3 % (20.0-44.0); MEAN CORPUSCULAR HGB CONC 32 g/dl (31.0-36.0); MEAN CORPUSCULAR VOLUME 96 fL (80-96); MONOCYTES # (AUTO) 0.2 /CMM (0.1-1.30); MONOCYTES % (AUTO) 2.2 % (2.0-12.0); NEUTROPHILS # (AUTO) 9.2 /CMM (1.8-8.9); NEUTROPHILS % (AUTO) 91.2 % (43.0-81.0); PLATELET COUNT (AUTO) 74 /CMM (150-450); WHITE BLOOD COUNT (AUTO) 10.1 K/uL (4.3-11.0)
[2020-05-28 05:08] LABS: CALCIUM, SERUM 8.1 mg/dL (8.5-10.1); CARBON DIOXIDE 19 mmol/L (21-32); CHLORIDE 113 mmol/L (98-107); CREATININE 3.2 mg/dL (0.6-1.3); GLUCOSE 299 mg/dL (74-106); MAGNESIUM 2.2 mg/dL (1.8-2.4); PHOSPHORUS 5.4 mg/dL (2.5-4.9); POTASSIUM 3.6 mmol/L (3.5-5.1); SODIUM SERUM 151 mmol/L (136-145)
[2020-05-28 05:13] LABS: UREA NITROGEN, BLOOD 136 mg/dL (7-18)
[2020-05-28] MEDS: PRECEDEX 400 MCG/100 ML BOTTLE 100 ML IV PRN ×3 (05:39→23:08)
[2020-05-28] MEDS: BLOOD SUGAR DIAGNOSTIC 1 EACH STRIP IN SCH ×3 (05:45→17:16)
[2020-05-28] MEDS: DOXYCYCLINE HYCLATE (100 MG) 100 MG TABLET NG SCH ×2 (05:48→08:53)
--- NOTE | 2020-05-28 06:30 | NUR ---
CLERK TYPIST CLOSING NOTES PATIENT REMAINS ORALLY INTUBATED, ON MECHANICAL VENTILATION AT PRESCRIBED SETTINGS, TOLERATING WELL, NO SIGNS AND SYMPTOMS OF RESPIRATORY DISTRESS NOTED. REMAINS LIGHTLY SEDATED ON PRECEDEX DRIP @ 0.3 MCG/KG/HR, AND ON BP SUPPORT WITH NEOSYNEPHRINE DRIP @ 1.1 MCG/KG/MIN. WILL ENDORSE THE PATIENT TO THE AM SHIFT NURSE FOR DENIS
--- NOTE | 2020-05-28 07:45 | NUR ---
RN NOTES RECEIVED PATIENT INTUBATED AND SEDATED. ETT IN PLACE AND TOLERATING SETTINGS OF 28% FIO2 AND PEEP OF 5. NGT AT RIGHT NARE WITH GLUCERNA AT 35ML/HR TOLERATING WELL. TEENA MLX2 WITH PRECEDEX AT 0.3 AND KM AT 1.1, N/S TKO. EAST DRAINING BORDERLINE AMOUNTS. ON TELEMETRY AT STABLE AF. APPEARS COMFORTABLE AT THIS TIME. WILL CONTINUE CARES TODAY.
--- NOTE | 2020-05-28 07:58 | NUR ---
RT PATIENT REC'D ORALLY INTUBATED ON [facility] VENT WITH ORDERED SETTINGS. ALARMS CHECKED + AUDIBLE. ETT SECURE AND IN PROPER POSITION. AMBU BAG AT HOB. Addendum: 05/28/20 at 1617 by LESLIE LUNA RT Amended: Links added.
[2020-05-28] MEDS: CITRIC ACID/SODIUM CITRATE (BICITRA)15 ML UDC PO SCH ×4 (08:53→22:07)
[2020-05-28] MEDS: FERROUS SULFATE (325 MG) 325 MG/TAB TABLET PO SCH (08:53)
[2020-05-28] MEDS: CALCIUM CARB 250MG /VITAMIN D 1 UDTAB PO SCH (08:53)
[2020-05-28] MEDS: SUCRALFATE 1 G/10 ML UDC GT SCH ×3 (08:53→16:29)
[2020-05-28] MEDS: PANTOPRAZOLE 40 MG/PACK PACK GT SCH ×2 (08:53→16:28)
[2020-05-28] MEDS: LEVOTHYROXINE SODIUM 50 MCG TABLET PO SCH (08:54)
[2020-05-28] MEDS: MULTIVITAMINS,THERAGRAN 1 UDTAB TABLET PO SCH (08:54)
[2020-05-28] MEDS: ASCORBIC ACID 500 MG TABLET PO SCH (08:54)
[2020-05-28] MEDS: methylPREDNISolone SOD SUCC 40 MG/ML VIAL IV SCH (08:55)
[2020-05-28] MEDS: AMIODARONE HCL 200 MG TABLET PO SCH (08:55)
[2020-05-28] MEDS: PROSOURCE / PROSTAT (PYXIS) 30 ML UDC GT SCH ×4 (08:55→22:12)
[2020-05-28] MEDS: POLYVINYL ALCOHOL 15 ML BOTTLE EACHEYE SCH ×2 (08:56→16:29)
[2020-05-28] MEDS: MUPIROCIN OINT 2% 22 GM TUBE NS SCH ×2 (08:56→21:00)
[2020-05-28] MEDS: HYDROGEL DRESSING 90 GM TUBE TP SCH (08:57)
[2020-05-28] MEDS: NYSTATIN/TRIAMCIN CREAM 15 GM TUBE TP SCH ×2 (08:57→16:31)
[2020-05-28] MEDS: DAPTOMYCIN 500 MG in IV NS 0.9% 50 ML IV SCH (08:58)
[2020-05-28] MEDS: MEROPENEM 500 MG in IV NS 0.9% 50 ML IV SCH ×2 (08:59→22:11)
[2020-05-28] MEDS: PHENYLEPHRINE 100 MG in IV NS 0.9% 240 ML IV PRN ×2 (10:13→21:01)
--- NOTE | 2020-05-28 11:15 | NUR ---
WOUND CARE CONSULT/FOLLOW UP: REVIEWED CHART,NURSING DOCUMENTATION AND PHOTOS WHICH INDICATE SACRAL DEEP TISSUE INJURY IN EVOLUTION, PRESENT ON ADMISSION, NOW WITH NECROTIC TISSUE. PER RN AND PHOTO THERE IS RED AREA WITH OPEN SKIN TO RIGHT AXILLA. RECOMMENDATIONS MADE FOR SKIN PROTECTION AND WOUND CARE. DISCUSSED WITH NURSING STAFF. DISCUSSED SACRAL WOUND WITH DR HOFF, SURGEON CURRENTLY ON CASE. MD IN AGREEMENT WITH PLAN OF CARE. Addendum: 05/28/20 at 1124 by REX GONG WNDNU TREATMENT ORDERS UPDATED FOR SACRAL WOUND.
[2020-05-28] MEDS: DAKINS QUARTER STRENGTH (0.125%) 480 ML BOTTLE TOP SCH (12:06)
[2020-05-28] MEDS: GLUCERNA 1.2 1,000 ML BOTTLE NG PRN (14:01)
[2020-05-28] MEDS: CLOTRIMAZOLE 1% 15 GM TUBE TP SCH (16:31)
--- NOTE | 2020-05-28 18:31 | NUR ---
RN CLOSING NOTES PT REMAINS INTUBATED AND SEDATED. ON PRECEDEX AT 0.3MCG, NEOSYNEPHRINE AT 1.2, TOLERATING CURRENT VENT SETTINGS FIO2 28% PEEP OF 5, EAST BORDERLINE AMOUNTS, TOLERATING FEEDING AT 35ML/HR, VITAL SIGNS STABLE, SIDE RAILS UPX3, BED LOCKED AND IN LOWEST POSITION, WILL ENDORSE TO NIGHT NURSE FOR CONTINUITY OF CARE.
[2020-05-28] MEDS: MICAFUNGIN SODIUM 100 MG in IV NS 0.9% 100 ML IV SCH (21:02)
[2020-05-28] MEDS: ATORVASTATIN 10 MG TABLET PO SCH (22:06)
[2020-05-29] VITALS (68 sets, daily range): BP systolic 82–170; BP diastolic 32–118
[2020-05-29] MEDS: BLOOD SUGAR DIAGNOSTIC 1 EACH STRIP IN SCH ×4 (00:42→17:57)
[2020-05-29] MEDS: INSULIN REGULAR, HUMAN 100 UNIT/ML 3 ML VIAL SQ PRN ×4 (00:43→17:57)
[2020-05-29 04:49] LABS: BASOPHILS % (AUTO) 0.2 % (0.0-2.0); EOSINOPHILS % (AUTO) 0.4 % (0.0-6.0); HEMATOCRIT 29 % (39-51); HEMOGLOBIN 9.2 g/dL (13.5-17.5); LYMPHOCYTES # (AUTO) 0.5 /CMM (0.8-4.8); LYMPHOCYTES % (AUTO) 4.8 % (20.0-44.0); MEAN CORPUSCULAR HGB CONC 32 g/dl (31.0-36.0); MEAN CORPUSCULAR VOLUME 95 fL (80-96); MONOCYTES # (AUTO) 0.2 /CMM (0.1-1.30); MONOCYTES % (AUTO) 2.1 % (2.0-12.0); NEUTROPHILS # (AUTO) 9.7 /CMM (1.8-8.9); NEUTROPHILS % (AUTO) 92.5 % (43.0-81.0); PLATELET COUNT (AUTO) 69 /CMM (150-450); RED BLOOD CELL COUNT(AUTO) 3.09 MIL/uL (4.5-6.0); WHITE BLOOD COUNT (AUTO) 10.5 K/uL (4.3-11.0)
--- NOTE | 2020-05-29 05:00 | NUR ---
AUTOMATIC ENGRAVER NOTES PATIENT NOTED WITH LARGE BM X1, SOFT/BROWN/MUCOID. WOUND CARE DONE AFTER BED BATH, TOLERATED FAIRLY.
[2020-05-29 05:04] LABS: CALCIUM, SERUM 8.3 mg/dL (8.5-10.1); CARBON DIOXIDE 18 mmol/L (21-32); CHLORIDE 113 mmol/L (98-107); CREATININE 3.4 mg/dL (0.6-1.3); GLUCOSE 319 mg/dL (74-106); PHOSPHORUS 5.8 mg/dL (2.5-4.9); POTASSIUM 3.5 mmol/L (3.5-5.1); SODIUM SERUM 148 mmol/L (136-145)
[2020-05-29 05:06] LABS: UREA NITROGEN, BLOOD 142 mg/dL (7-18)
[2020-05-29 05:35] LABS: LYMPHOCYTES % (MANUAL) 4 % (16-48)
[2020-05-29 05:36] LABS: BAND % (MANUAL) 10 % (0.0-5.0); MONOCYTES % (MANUAL) 1 % (0-11.0); NEUTROPHILS % (MANUAL) 85 (42-76)
[2020-05-29] MEDS: DOXYCYCLINE HYCLATE (100 MG) 100 MG TABLET NG SCH ×2 (06:14→17:17)
[2020-05-29] MEDS: PRECEDEX 400 MCG/100 ML BOTTLE 100 ML IV PRN ×3 (06:38→21:00)
[2020-05-29] MEDS: PHENYLEPHRINE 100 MG in IV NS 0.9% 240 ML IV PRN ×3 (06:40→21:00)
--- NOTE | 2020-05-29 07:00 | NUR ---
BUTT PRESSER CLOSING NOTES PATIENT REMAINS ORALLY INTUBATED, ON MECHANICAL VENTILATION AT PRESCRIBED SETTINGS, TOLERATING WELL, NO SIGNS AND SYMPTOMS OF RESPIRATORY DISTRESS NOTED. REMAINS LIGHTLY SEDATED ON PRECEDEX DRIP @ 0.3 MCG/KG/HR, AND ON BP SUPPORT WITH NEOSYNEPHRINE DRIP @ 1.5 MCG/KG/MIN. WILL ENDORSE THE PATIENT TO THE AM SHIFT NURSE FOR DENIS
--- NOTE | 2020-05-29 07:25 | NUR ---
CRITICAL CARE CNS NOTES RECEIVED PATIENT IN BED. ALERT AND AWAKE. NO S/S OF ACUTE DISTRESS. FREQUENT VISUAL CHECK DONE.
[2020-05-29] MEDS: LEVOTHYROXINE SODIUM 50 MCG TABLET PO SCH (08:20)
[2020-05-29] MEDS: ASCORBIC ACID 500 MG TABLET PO SCH (09:16)
[2020-05-29] MEDS: CITRIC ACID/SODIUM CITRATE (BICITRA)15 ML UDC PO SCH ×4 (09:16→21:09)
[2020-05-29] MEDS: MULTIVITAMINS,THERAGRAN 1 UDTAB TABLET PO SCH (09:16)
[2020-05-29] MEDS: methylPREDNISolone SOD SUCC 40 MG/ML VIAL IV SCH (09:16)
[2020-05-29] MEDS: FERROUS SULFATE (325 MG) 325 MG/TAB TABLET PO SCH (09:16)
[2020-05-29] MEDS: SUCRALFATE 1 G/10 ML UDC GT SCH ×3 (09:16→17:17)
[2020-05-29] MEDS: CALCIUM CARB 250MG /VITAMIN D 1 UDTAB PO SCH (09:16)
[2020-05-29] MEDS: PANTOPRAZOLE 40 MG/PACK PACK GT SCH ×2 (09:16→17:16)
[2020-05-29] MEDS: CLOTRIMAZOLE 1% 15 GM TUBE TP SCH ×2 (09:17→17:20)
[2020-05-29] MEDS: HYDROGEL DRESSING 90 GM TUBE TP SCH (09:17)
[2020-05-29] MEDS: DAKINS QUARTER STRENGTH (0.125%) 480 ML BOTTLE TOP SCH (09:17)
[2020-05-29] MEDS: MUPIROCIN OINT 2% 22 GM TUBE NS SCH ×2 (09:17→21:08)
[2020-05-29] MEDS: NYSTATIN/TRIAMCIN CREAM 15 GM TUBE TP SCH ×2 (09:17→17:21)
[2020-05-29] MEDS: MEROPENEM 500 MG in IV NS 0.9% 50 ML IV SCH (09:17)
[2020-05-29] MEDS: AMIODARONE HCL 200 MG TABLET PO SCH (09:20)
[2020-05-29] MEDS: POLYVINYL ALCOHOL 15 ML BOTTLE EACHEYE SCH ×2 (09:20→17:21)
[2020-05-29] MEDS: PROSOURCE / PROSTAT (PYXIS) 30 ML UDC GT SCH ×4 (09:20→21:08)
[2020-05-29] MEDS: CEFEPIME 1 GM in IV D5W 50 ML IV SCH (17:19)
--- NOTE | 2020-05-29 19:00 | NUR ---
RN NOTE RECEIVED PATIENT IN BED, SEDATED, IN NO S/SX OF ACUTE DISTRESS AT THIS TIME. PATIENT ON ET TUBE 11/08 ON THE LIP, CONNECTED TO MECHANICAL VENT WITH SETTINGS FOLLOWS: TV 500, AC 26, FIO2 28%, PEEP 5, TOLERATING WELL, SATURATION AT 100%. PATIENT IS AFIB CONTROLLED AT 90'S ON BEDSIDE MONITOR. NOTED TEENA MIDLINE X 2, NO S/S OF INFECTION, WITH PRECEDEX INFUSING AT 0.3 MCG, NEOSYNEPHRINE AT 1.5 MCG, AND NS AT TKO. NOTED OGT INTACT, PLACEMENT CHECKED BY AUSCULTATION AND ASPIRATION, NO RESIDUAL NOTED. EAST CATHETER CONNECTED TO URINE BAG IN PLACE, DRAINING TO A CLEAR, YELLOW OUTPUT. NOTED BILATERAL SOFT WRIST RESTRAINTS, SKIN AND CIRCULATION WAS CHECKED PER PROTOCOL. SAFETY MEASURES IMPLEMENTED. PATIENT BED ALARM IS ON. HEAD OF BED ELEVATED. BED IS LOCKED, IN LOWEST POSITION AND SIDE RAILS UP. CALL LIGHT WITHIN REACH OF THE PATIENT. WILL CONTINUE TO MONITOR AND REASSESS FOR ANY CHANGES.
--- NOTE | 2020-05-29 19:36 | NUR ---
ICU NOTES PATIENT RESTING COMFORTABLY IN BED. DENIES ANY C/O PAIN NOR DISCOMFORT AT THIS TIME. ET TUBE INTACT AND PATENT. 7/23CM WITH VENT SETTING OF AC 26 TV 500 FIO2 OF 28% PEEP 5. ON KM AND PRECEDEX RADHA WELL ORDERED. TEENA MID LINE INACT AND PATENT. OGT INTACT AND PATENT RADHA GLUCERNA 1.5 AT 35ML/HR RADHA WELL. NO RESIDUAL OBSERVED. BED IN LOWEST POSITION LOCKED. FREQUENT VISUAL CHECK DONE. IN NO APPARENT DISTRESS.
[2020-05-29] MEDS: MICAFUNGIN SODIUM 100 MG in IV NS 0.9% 100 ML IV SCH (19:45)
[2020-05-29] MEDS: ATORVASTATIN 10 MG TABLET PO SCH (21:09)
[2020-05-30] VITALS (87 sets, daily range): BP systolic 53–134; BP diastolic 30–76
[2020-05-30] MEDS: BLOOD SUGAR DIAGNOSTIC 1 EACH STRIP IN SCH ×5 (00:16→23:35)
[2020-05-30] MEDS: INSULIN REGULAR, HUMAN 100 UNIT/ML 3 ML VIAL SQ PRN ×5 (00:31→23:22)
[2020-05-30] MEDS: PRECEDEX 400 MCG/100 ML BOTTLE 100 ML IV PRN ×4 (02:24→22:16)
[2020-05-30] MEDS: IV NS 0.9% 250 ML IV PRN (02:56)
[2020-05-30 04:11] LABS: BASOPHILS % (AUTO) 0.2 % (0.0-2.0); EOSINOPHILS % (AUTO) 0.5 % (0.0-6.0); HEMATOCRIT 29 % (39-51); HEMOGLOBIN 9.3 g/dL (13.5-17.5); LYMPHOCYTES # (AUTO) 0.6 /CMM (0.8-4.8); LYMPHOCYTES % (AUTO) 5.9 % (20.0-44.0); MEAN CORPUSCULAR HGB CONC 32 g/dl (31.0-36.0); MEAN CORPUSCULAR VOLUME 95 fL (80-96); MONOCYTES # (AUTO) 0.2 /CMM (0.1-1.30); MONOCYTES % (AUTO) 1.8 % (2.0-12.0); NEUTROPHILS # (AUTO) 8.9 /CMM (1.8-8.9); NEUTROPHILS % (AUTO) 91.6 % (43.0-81.0); PLATELET COUNT (AUTO) 64 /CMM (150-450); RED BLOOD CELL COUNT(AUTO) 3.08 MIL/uL (4.5-6.0); WHITE BLOOD COUNT (AUTO) 9.7 K/uL (4.3-11.0)
[2020-05-30 04:27] LABS: CALCIUM, SERUM 8.3 mg/dL (8.5-10.1); CARBON DIOXIDE 19 mmol/L (21-32); CHLORIDE 113 mmol/L (98-107); CREATININE 3.5 mg/dL (0.6-1.3); GLUCOSE 338 mg/dL (74-106); MAGNESIUM 2.5 mg/dL (1.8-2.4); PHOSPHORUS 6.3 mg/dL (2.5-4.9); POTASSIUM 3.8 mmol/L (3.5-5.1); SODIUM SERUM 146 mmol/L (136-145)
[2020-05-30 04:31] LABS: UREA NITROGEN, BLOOD 156 mg/dL (7-18)
[2020-05-30] MEDS: CEFEPIME 1 GM in IV D5W 50 ML IV SCH ×2 (04:39→17:18)
[2020-05-30] MEDS: PHENYLEPHRINE 100 MG in IV NS 0.9% 240 ML IV PRN ×3 (04:57→19:14)
[2020-05-30] MEDS: DOXYCYCLINE HYCLATE (100 MG) 100 MG TABLET NG SCH ×2 (05:21→17:18)
--- NOTE | 2020-05-30 07:18 | NUR ---
RN NOTE PATIENT REMAINS IN ROOM IN NO SIGNS OF RESPIRATORY DISTRESS; STILL ON VENT SETTINGS ORDERED. RECEDEX INFUSING AT 0.3 MCG, NEOSYNEPHRINE AT 1.5 MCG, AND NS AT TKO, TUBE FEEDING ONGOING AT 35 ML/HR VIA OGT. SAFETY MEASURES IMPLEMENTED, BED IN LOWEST POSITION, LOCKED, SIDE RAILS UP, CALL LIGHT WITHIN REACH. ALL NEEDS AND ORDERS ADDRESSED DURING THE SHIFT. IV ACCESS MAINTAINED INTACT, SECURED AND FLUSHING WELL. ALL DUE MEDS GIVEN ORDERED & SCHEDULED ; PATIENT TOLERATED WELL. PATIENT KEPT CLEAN AND COMFORTABLE WITHIN THE SHIFT. PATIENT ENDORSED TO INCOMING SHIFT RN WITH STABLE VITAL SIGN AND FOR CONTINUITY OF CARE.
--- NOTE | 2020-05-30 07:50 | NUR ---
RN NOTES RECEIVED PT SEDATED AND INTUBATED. TOLERATING SETTINGS OF 28% FIO2 AND PEEP OF 5. OGT INTACT WITH GLUCERNA RUNNING AT 35ML/HR. TEENA MLX2 IN PLACE WITH PRECEDEX 0.3, KM 1.5, AND N/S TKO. EAST DRAINING BORDERLINE. DRESSINGS INTACT. VITAL SIGNS STABLE. APPEARS COMFORTABLE. SIDE RAILS UPX3, BED LOCKED AND KEPT IN LOWEST POSITION. WILL CONTINUE CARES TODAY.
[2020-05-30] MEDS: CITRIC ACID/SODIUM CITRATE (BICITRA)15 ML UDC PO SCH ×4 (08:18→20:35)
[2020-05-30] MEDS: SUCRALFATE 1 G/10 ML UDC GT SCH ×3 (08:19→17:15)
[2020-05-30] MEDS: LEVOTHYROXINE SODIUM 50 MCG TABLET PO SCH (08:19)
[2020-05-30] MEDS: CALCIUM CARB 250MG /VITAMIN D 1 UDTAB PO SCH (08:20)
[2020-05-30] MEDS: ASCORBIC ACID 500 MG TABLET PO SCH (08:20)
[2020-05-30] MEDS: FERROUS SULFATE (325 MG) 325 MG/TAB TABLET PO SCH (08:20)
[2020-05-30] MEDS: MULTIVITAMINS,THERAGRAN 1 UDTAB TABLET PO SCH (08:20)
[2020-05-30] MEDS: PANTOPRAZOLE 40 MG/PACK PACK GT SCH ×2 (08:21→17:15)
[2020-05-30] MEDS: PROSOURCE / PROSTAT (PYXIS) 30 ML UDC GT SCH ×4 (08:21→20:35)
[2020-05-30] MEDS: methylPREDNISolone SOD SUCC 40 MG/ML VIAL IV SCH (08:21)
[2020-05-30] MEDS: AMIODARONE HCL 200 MG TABLET PO SCH (08:22)
[2020-05-30] MEDS: POLYVINYL ALCOHOL 15 ML BOTTLE EACHEYE SCH ×2 (08:22→17:15)
[2020-05-30] MEDS: MUPIROCIN OINT 2% 22 GM TUBE NS SCH ×2 (08:24→20:36)
[2020-05-30] MEDS: DAKINS QUARTER STRENGTH (0.125%) 480 ML BOTTLE TOP SCH (08:24)
[2020-05-30 08:25] LABS: ABG BASE EXCESS -8.3 mmol/L; ABG OXYGEN SATURATION 97.4 % (92.0-98.5); ABG PCO2 27.4 mmHg (35.0-45.0); ABG PH 7.376 (7.350-7.450); ABG PO2 103.3 mmHg (75.0-100.0); COHb 0.9 % (0.5-1.5); MetHb 0.1 % (0.0-1.5); O2Hb 96.4 % (94.0-97.0); PEEP,BG 5 cm H2O; SITE, ABG Right Radial; VT, ABG 500 mL
[2020-05-30] MEDS: NYSTATIN/TRIAMCIN CREAM 15 GM TUBE TP SCH ×2 (08:25→17:16)
[2020-05-30] MEDS: HYDROGEL DRESSING 90 GM TUBE TP SCH (08:25)
[2020-05-30] MEDS: CLOTRIMAZOLE 1% 15 GM TUBE TP SCH ×2 (08:25→17:15)
[2020-05-30] MEDS: DAPTOMYCIN 500 MG in IV NS 0.9% 50 ML IV SCH (09:22)
[2020-05-30] MEDS: GLUCERNA 1.2 1,000 ML BOTTLE NG PRN (18:27)
--- NOTE | 2020-05-30 19:23 | NUR ---
RN NOTE RECEIVED PT SEDATED IN BED. PT INTUBATED AND TOLERATING VENT SETTINGS WELL. RESPIRATIONS EVEN AND UNLABORED. VITAL SIGNS STABLE VIA BEDSIDE MONITOR. OGT PATENT AND IN PLACE VERIFIED BY AUSCULTATION AND ASPIRATION OF GASTRIC CONTENTS. TUBE FEEDING RUNNING ORDERED WITHOUT RESIDUAL. EAST CATHETER PATENT AND IN PLACE DRAINING URINE VIA GRAVITY. CONTROLLED AFIB ON THE OPERATION SPECIALIST. WITH 2 MID LINES ON RIGHT UPPER ARM PATENT WITHOUT COMPLICATIONS NOTED AT BOTH SITES. WITH PRECIDEX RUNNING AT @ 0.3MCG AND KM RUNNING AT 1MCG. BILATERAL SOFT WRIST RESTRAINS IN PLACE ORDERED FOR SAFETY. WILL DO VISUAL CHECKS Q15M. ALARMS ON AND AUDIBLE. VENT PLUGGED INTO RED OUTLET. AMBU BAG AT BEDSIDE. SAFETY MEASURES IN PLACE PER PROTOCOL, BED ALARM ON, BED LOCKED AND IN LOW POSITION, SIDE RAILS UP X 2, HEAD OF BED ELEVATED. WILL MONITOR PATIENT AND CARRY OUT ACTIVE MD ORDERS.
[2020-05-30] MEDS: MICAFUNGIN SODIUM 100 MG in IV NS 0.9% 100 ML IV SCH (19:32)
[2020-05-30] MEDS: ATORVASTATIN 10 MG TABLET PO SCH (21:20)
[2020-05-31] VITALS (95 sets, daily range): BP systolic 78–124; BP diastolic 35–65
--- NOTE | 2020-05-31 | NUR ---
RN NOTE PT REMAINS SEDEATED IN BED WITH HEAD OF BED ELEVATED WITHOUT SIGNS OF DISCOMFORT OR DISTRESS. VITAL SIGNS STABLE VIA BEDSIDE MONITOR. TOLERATING VENT SETTINGS WELL. WILL CONTINUE TO MONITOR PATIENT.
--- NOTE | 2020-05-31 04:00 | NUR ---
RN NOTE COMPLETE BED BATH/AM CARE AND LINEN CHANGE COMPLETED WITH 3 PERSON ASSIST. PT TOLERATED WELL. VITAL SIGNS STABLE VIA BEDSIDE MONITOR. OGT FEEDING RESUMED. OGT PLACEMENT VERIFIED VIA AUSCULTATION AND ASPIRATION OF GASTRIC CONTENTS. WILL CONTINUE TO MONITOR PATIENT.
[2020-05-31] MEDS: CEFEPIME 1 GM in IV D5W 50 ML IV SCH ×2 (04:34→16:26)
[2020-05-31 04:39] LABS: BASOPHILS % (AUTO) 0.5 % (0.0-2.0); EOSINOPHILS % (AUTO) 0.9 % (0.0-6.0); HEMATOCRIT 29 % (39-51); HEMOGLOBIN 9.1 g/dL (13.5-17.5); LYMPHOCYTES # (AUTO) 0.6 /CMM (0.8-4.8); LYMPHOCYTES % (AUTO) 11.2 % (20.0-44.0); MEAN CORPUSCULAR HGB CONC 31 g/dl (31.0-36.0); MEAN CORPUSCULAR VOLUME 95 fL (80-96); MONOCYTES # (AUTO) 0.1 /CMM (0.1-1.30); MONOCYTES % (AUTO) 2.3 % (2.0-12.0); NEUTROPHILS # (AUTO) 4.5 /CMM (1.8-8.9); NEUTROPHILS % (AUTO) 85.1 % (43.0-81.0); PLATELET COUNT (AUTO) 60 /CMM (150-450); RED BLOOD CELL COUNT(AUTO) 3.07 MIL/uL (4.5-6.0); WHITE BLOOD COUNT (AUTO) 5.3 K/uL (4.3-11.0)
[2020-05-31 05:20] LABS: CALCIUM, SERUM 8.7 mg/dL (8.5-10.1); CARBON DIOXIDE 19 mmol/L (21-32); CHLORIDE 112 mmol/L (98-107); CREATININE 3.7 mg/dL (0.6-1.3); MAGNESIUM 2.4 mg/dL (1.8-2.4); POTASSIUM 3.8 mmol/L (3.5-5.1); SODIUM SERUM 147 mmol/L (136-145)
[2020-05-31 05:22] LABS: GLUCOSE 351 mg/dL (74-106); UREA NITROGEN, BLOOD 168 mg/dL (7-18)
--- NOTE | 2020-05-31 05:26 | NUR ---
RN NOTE RECIEVED ALERT FOR CRITICAL LABS GLUCOSE 351, BUN 168, AND CREATININE 3.7. MD SHOP WORKER (DR. RODRIGUEZ) NOTIFIED.
--- NOTE | 2020-05-31 05:40 | NUR ---
RN NOTE MD NOTIFIED WITH NO NEW ORDERS. PT MAY NEED HEMODIALYSIS PER NEPHROLOGY.
[2020-05-31] MEDS: BLOOD SUGAR DIAGNOSTIC 1 EACH STRIP IN SCH ×4 (05:46→23:32)
[2020-05-31] MEDS: INSULIN REGULAR, HUMAN 100 UNIT/ML 3 ML VIAL SQ PRN ×4 (05:47→23:33)
[2020-05-31 05:52] LABS: ABG BASE EXCESS -10.4 mmol/L; ABG PCO2 28.6 mmHg (35.0-45.0); ABG PH 7.319 (7.350-7.450); ABG PO2 98.8 mmHg (75.0-100.0); AaDO2 67.1 mmHg; COHb 0.3 % (0.5-1.5); MetHb 0.5 % (0.0-1.5); O2Hb 95.2 % (94.0-97.0); SITE, ABG Left Radial
[2020-05-31] MEDS: DOXYCYCLINE HYCLATE (100 MG) 100 MG TABLET NG SCH ×2 (05:54→17:02)
[2020-05-31] MEDS: PHENYLEPHRINE 100 MG in IV NS 0.9% 240 ML IV PRN ×2 (05:55→17:03)
[2020-05-31] MEDS: PRECEDEX 400 MCG/100 ML BOTTLE 100 ML IV PRN ×3 (05:55→22:46)
--- NOTE | 2020-05-31 06:48 | NUR ---
RN NOTE NO ACUTE CHANGES OBSERVED OVERNIGHT. PT REMAINS SEDATED AND INTUBATED IN BED IN SEMI PABLO'S POSITION. TOLERATING VENT SETTINGS WELL. RESPIRATIONS EVEN AND UNLABORED. NO SIGNS OF PAIN OR DISCOMFORT. VITAL SIGNS STABLE VIA BEDSIDE MONITOR. OGT PATENT AND IN PLACE VERIFIED BY AUSCULTATION. TUBE FEEDING RUNNING ORDERED WITHOUT RESIDUAL NOTED. EAST CATHETER PATENT AND IN PLACE DRAINING URINE VIA GRAVITY. CONTROLLED AFIB ON THE CORPORATE SECURITIES RESEARCH ANALYST. NOTED WITH 2 MID LINES ON RIGHT UPPER ARM PATENT WITHOUT COMPLICATIONS NOTED AT BOTH SITES. WITH PRECEDEX RUNNING AT @ 0.3MCG AND KM RUNNING AT 1MCG. BILATERAL SOFT WRIST RESTRAINS IN PLACE ORDERED FOR SAFETY. VISUAL CHECKS DONE Q15M. CIRCULATION CHECKED PER PROTOCOL WELL. ALARMS ON AND AUDIBLE. VENT PLUGGED INTO RED OUTLET. AMBU BAG AT BEDSIDE. SAFETY MEASURES IN PLACE PER PROTOCOL, BED ALARM ON, BED LOCKED AND IN LOW POSITION, SIDE RAILS UP X 2, ALL NEEDS MET AND ATTENDED TO, WILL ENDORSE TO MORNING RN FOR DENIS.
[2020-05-31] MEDS: PANTOPRAZOLE 40 MG/PACK PACK GT SCH ×2 (08:13→16:23)
[2020-05-31] MEDS: SUCRALFATE 1 G/10 ML UDC GT SCH ×3 (08:13→16:23)
[2020-05-31] MEDS: CITRIC ACID/SODIUM CITRATE (BICITRA)15 ML UDC PO SCH ×4 (08:13→21:44)
[2020-05-31] MEDS: FERROUS SULFATE (325 MG) 325 MG/TAB TABLET PO SCH (08:13)
[2020-05-31] MEDS: MULTIVITAMINS,THERAGRAN 1 UDTAB TABLET PO SCH (08:14)
[2020-05-31] MEDS: ASCORBIC ACID 500 MG TABLET PO SCH (08:14)
[2020-05-31] MEDS: CALCIUM CARB 250MG /VITAMIN D 1 UDTAB PO SCH (08:14)
[2020-05-31] MEDS: LEVOTHYROXINE SODIUM 50 MCG TABLET PO SCH (08:14)
[2020-05-31] MEDS: MUPIROCIN OINT 2% 22 GM TUBE NS SCH ×2 (08:14→21:43)
[2020-05-31] MEDS: AMIODARONE HCL 200 MG TABLET PO SCH (08:14)
[2020-05-31] MEDS: methylPREDNISolone SOD SUCC 40 MG/ML VIAL IV SCH (08:17)
[2020-05-31] MEDS: PROSOURCE / PROSTAT (PYXIS) 30 ML UDC GT SCH ×4 (08:19→21:00)
[2020-05-31] MEDS: POLYVINYL ALCOHOL 15 ML BOTTLE EACHEYE SCH ×2 (08:19→16:24)
[2020-05-31] MEDS: CLOTRIMAZOLE 1% 15 GM TUBE TP SCH ×2 (08:20→16:24)
[2020-05-31] MEDS: HYDROGEL DRESSING 90 GM TUBE TP SCH (08:20)
[2020-05-31] MEDS: DAKINS QUARTER STRENGTH (0.125%) 480 ML BOTTLE TOP SCH (08:20)
[2020-05-31] MEDS: NYSTATIN/TRIAMCIN CREAM 15 GM TUBE TP SCH ×2 (08:21→16:25)
--- NOTE | 2020-05-31 09:30 | NUR ---
RN NOTES RN CHECK PLACEMENT of OG-TUBE, PLACEMENT VERIFIED AND CONFIRMED VIA AUSCULTATION.NO RESIDUAL OUTPUT AT THIS TIME. ADMINISTERED DUE MEDS FOR 2100 AND 2200 VIA OGT. WILL CONTINUE TO ASSESS AND MONITOR THROUGHOUT THE SHIFT. Addendum: 05/31/20 at 2211 by SUHAIL RUIZ RN PLEASE DISREGARD WRONG TIME ENTRY
[2020-05-31 10:59] LABS: CREATINE KINASE, TOTAL 17 U/L (39-308)
--- NOTE | 2020-05-31 11:40 | NUR ---
RN NOTE 0715: Received patient with ETT to vent, tolerated settings at this time. No respiratory distress noted. On Covid isolation, maintianed and observed. 2 TEENA midlines intact. On Precedex @ 0.3, patient is able to open eyes and answer yes/no questions at times. Will keep on precedex for comfort, no plan of weaning. Per Dr. Lantigua, family to decide on Wednesday for next POC if no progress. On [place] 1 for BP support, still noted with SBP 80-90's, will tirate as ordered. Noted with generalized edema, BUE weeping. Low UOP, 285mL form last 12hr per report, made Dr. callaway aware. TF tolerated, no residuals, kept HOB elevated. On Barimaxx. PROCUREMENT CONSULTANT restraints on for safety. 1130: No any significant changes noted at this time. Will continue to monitor.
[2020-05-31] MEDS: GLUCERNA 1.2 1,000 ML BOTTLE NG PRN ×2 (17:36→17:41)
--- NOTE | 2020-05-31 19:30 | NUR ---
ICU OPENING NOTES RECEIVED SEDATED PATIENT IN NO S/SX OF ACUTE DISTRESS AT THIS TIME. NO SOB NOTED. PATIENT ON MECHANICAL VENT; SETTINGS PRESCRIBED; PT TOLERATED WELL. AMBU BAG AT BED SIDE ALARMS SET PER PROTOCOL AND AUDIBLE. VENT PLUGGED IN TO RED OUTLET. NO DISTRESS NOTED.NOTED OGT IN PLACED. PLACEMENT VERIFIED WITH AUSCULTATION. NO RESIDUAL TAKEN AT THIS TIME; ONGOING TUBE FEEDING OF GLUCERNA 1.2@35MLS/HR; PT TOLERATES WELL. NOTED IV SITE ON R U AM MIDLINE #18 (X2);PATENT, INTACT AND FLUSHING WELL; NO S/S OF INFECTION OR INFILTRATION. PATIENT HAS ONGOING PRECEDEX DRIP ; RECEIVED @ DOSE RATE OF 0.3MCG/KG/MHR ,KM @1MCG/KG/MIN MONITORED AND TITRATED PER PROTOCOL.EAST CATH IN PLACE, MINIMAL URINE OUTPUT NOTED BILATERAL SOFT WRIST RESTRAINTS IN PLACE, ASSESSED PER PROTOCOL. SAFETY MEASURES HAVE BEEN PROVIDED AND IMPLEMENTED. PATIENT BED ALARM IS ON. HEAD OF BED ELEVATED. BED IS LOCKED, IN LOWEST POSITION AND SIDE RAILS UP. CALL LIGHT WITHIN REACH OF THE PATIENT. APPLICABLE ISOLATION PRECAUTIONS IN PLACE. WILL CONTINUE TO MONITOR AND REASSESS FOR ANY CHANGES AND WILL CARRY OUT ANY ONGOING AND ACTIVE MD ORDER.
[2020-05-31] MEDS: MICAFUNGIN SODIUM 100 MG in IV NS 0.9% 100 ML IV SCH (19:47)
--- NOTE | 2020-05-31 21:30 | NUR ---
RN NOTES RN CHECK PLACEMENT of OG-TUBE, PLACEMENT VERIFIED AND CONFIRMED VIA AUSCULTATION.NO RESIDUAL OUTPUT AT THIS TIME. ADMINISTERED DUE MEDS FOR 2100 AND 2200 VIA OGT. WILL CONTINUE TO ASSESS AND MONITOR THROUGHOUT THE SHIFT.
[2020-05-31] MEDS: ATORVASTATIN 10 MG TABLET PO SCH (21:44)
--- NOTE | 2020-05-31 23:00 | NUR ---
RN NOTES PATIENT REMAINS IN NO ACUTE RESPIRATORY DISTRESS AT THIS TIME, NO CHANGES TO CONDITION/STATUS. STEERER WELL AWARE. WILL CONTINUE TO MONITOR AND REASSESS FOR ANY CHANGES THROUGHOUT THE SHIFT
[2020-06-01] VITALS (85 sets, daily range): BP systolic 39–177; BP diastolic 24–101
--- NOTE | 2020-06-01 03:00 | NUR ---
RN NOTES NO CHANGES IN PATIENT CONDITION AT THIS TIME PATIENT VITALS STABLE, NO SIGNS OF ACUTE RESPIRATORY DISTRESS. PATIENT STILL IN BED SLEEPING COMFORTABLY. NO COMPLAINTS OF PAIN OR ANY DISCOMFORT AT THIS TIME. WILL CONTINUE TO MONITOR AND REASSESS FOR ANY CHANGES THROUGHOUT THE SHIFT.
[2020-06-01] MEDS: CEFEPIME 1 GM in IV D5W 50 ML IV SCH ×2 (04:48→16:15)
[2020-06-01] MEDS: BLOOD SUGAR DIAGNOSTIC 1 EACH STRIP IN SCH ×3 (05:17→17:07)
[2020-06-01] MEDS: INSULIN REGULAR, HUMAN 100 UNIT/ML 3 ML VIAL SQ PRN ×4 (05:19→23:38)
[2020-06-01] MEDS: PHENYLEPHRINE 100 MG in IV NS 0.9% 240 ML IV PRN ×3 (05:23→17:10)
[2020-06-01] MEDS: DOXYCYCLINE HYCLATE (100 MG) 100 MG TABLET NG SCH ×2 (05:30→17:07)
[2020-06-01] MEDS: PRECEDEX 400 MCG/100 ML BOTTLE 100 ML IV PRN ×3 (06:40→17:10)
--- NOTE | 2020-06-01 07:11 | NUR ---
QUILL WORKER CLOSING NOTES PATIENT RESTING IN BED COMFORTABLY,PT SEDATED WELL WITH 0.3 MCG/KG/HR OF PRECEDEX. TOLERATING VENT SETTINGS ORDERED. NO SIGNS OF ACUTE DISTRESS. BREATHING EVEN AND UNLABORED. TELE MONITORS READING SR HR IS AT 91 AT THE TIME OF ENDORESMENT. VITAL SIGNS WNL. O/GTUBE FEEDING RUNNING GLUCERNA 1.2 @ 35ML/HR; WILL ENDORSE TO AM SHIFT TO SHIFT FEEDING TO NEPR0 AT SAME RATE 35CC/HR. IV LINE REMAINED PATENT AND INTACT WITHIN END OF SHIFT. SAFETY PRECAUTIONS IN PLACE WITH BED IN LOWEST POSITION, CALL LIGHT WITHIN REACH, BREAKS ON, SIDE RAILS UP. ALL NEEDS ATTENDED TO; SHIFT ASSESSMENT/BEDBATH/SKIN/WOUND CARE DONE. PATIENT KEPT CLEAN AND DRY. WILL ENDORSE TO ONCOMING SHIFT FOR DENIS WITH ALL PERTINENT INFO REGARDING PATIENT STATUS.
--- NOTE | 2020-06-01 09:00 | NUR ---
ICU/RN PT IS INTUBATED ON THE VENT AC MODE ,FIO2-28%.SAT O2-100%.ON PRECEDEX DRIP.CALM AND COOPERATIVE.ON NEOSYNEPHRINE DRIP.AFEBRILE.NO PAIN REPORTED AT THIS TIME.OG TUBE INFUSING WITH FEEDING NO RESIDUAL NOTED.RIGHT UPPER ARM HAS 2 MID LINES.F/C IN PLACE DRAINING WITH MINIMAL AMOUNT OF YELLOW URINE.MULTIPLY WOUNDS NOTED ALL OVER THE BODY GENERALIZED EDEMA PRESENT.PT IS OBESE.UNABLE TO MOVE.BILATERAL WRIST RESTRAINS ON. SUCTION PROVIDED.REPOSITION FOR COMFORT.LABS REVIEW.DUE MEDS ARE GIVEN ORDERED.
[2020-06-01] MEDS: POLYVINYL ALCOHOL 15 ML BOTTLE EACHEYE SCH ×2 (09:11→16:14)
[2020-06-01] MEDS: MULTIVITAMINS,THERAGRAN 1 UDTAB TABLET PO SCH (09:12)
[2020-06-01] MEDS: methylPREDNISolone SOD SUCC 40 MG/ML VIAL IV SCH (09:12)
[2020-06-01] MEDS: SUCRALFATE 1 G/10 ML UDC GT SCH ×3 (09:12→16:25)
[2020-06-01] MEDS: CITRIC ACID/SODIUM CITRATE (BICITRA)15 ML UDC PO SCH ×4 (09:12→21:01)
[2020-06-01] MEDS: CALCIUM CARB 250MG /VITAMIN D 1 UDTAB PO SCH (09:12)
[2020-06-01] MEDS: PANTOPRAZOLE 40 MG/PACK PACK GT SCH ×2 (09:12→16:25)
[2020-06-01] MEDS: FERROUS SULFATE (325 MG) 325 MG/TAB TABLET PO SCH (09:12)
[2020-06-01] MEDS: ASCORBIC ACID 500 MG TABLET PO SCH (09:12)
[2020-06-01] MEDS: DAKINS QUARTER STRENGTH (0.125%) 480 ML BOTTLE TOP SCH (09:19)
[2020-06-01] MEDS: HYDROGEL DRESSING 90 GM TUBE TP SCH (09:19)
[2020-06-01] MEDS: CLOTRIMAZOLE 1% 15 GM TUBE TP SCH ×2 (09:19→16:26)
[2020-06-01] MEDS: AMIODARONE HCL 200 MG TABLET PO SCH (09:19)
[2020-06-01] MEDS: NYSTATIN/TRIAMCIN CREAM 15 GM TUBE TP SCH ×2 (09:20→16:26)
[2020-06-01] MEDS: DAPTOMYCIN 500 MG in IV NS 0.9% 50 ML IV SCH (09:20)
[2020-06-01] MEDS: MUPIROCIN OINT 2% 22 GM TUBE NS SCH ×2 (09:20→21:02)
[2020-06-01] MEDS: LEVOTHYROXINE SODIUM 50 MCG TABLET PO SCH (09:22)
[2020-06-01] MEDS: PROSOURCE / PROSTAT (PYXIS) 30 ML UDC GT SCH ×4 (09:23→21:01)
--- NOTE | 2020-06-01 10:00 | NUR ---
ICU/RN SEDATION VACATION PROVIDED.PT PLACED ON SIMV MODE.UNABLE TO TOLERATE. HAS TACHYPNEA.AGITATION. DR GAUTAM NOTIFIED.PT PLACED BACK ON PRECEDEX AND AC MODE. PT ID DNR STATUS WAITING FOR THE FAMILY TO MAKE DECISION. CONTINUE MONITORING.
[2020-06-01] MEDS: NEPRO 1,000 ML BOTTLE GT PRN (16:14)
--- NOTE | 2020-06-01 17:00 | NUR ---
ICU/RN PM CARE PROVIDED.WOUND DRESSING DONE ORDERED. DUE MEDS ARE GIVEN CONTINUE MONITORING.RESTRAINS OFF.SUCTION PROVIDED.
[2020-06-01] MEDS: MICAFUNGIN SODIUM 100 MG in IV NS 0.9% 100 ML IV SCH (18:36)
[2020-06-01] MEDS: Z GUARD REMEDY 2 OZ OINT TP PRN (18:37)
--- NOTE | 2020-06-01 19:32 | NUR ---
GRAIN ELEVATOR AGENT. Initial assessment. received the pt rest on the bed. orally intubated. precedex 0.4mcg/kg/h. avila mcg/kg/M. ETT #7,LIP 23, AC 26,TV 500, FIO2 28%, PEEP 5. SAT 97%. NO ACUTE DISTRESS NOTED.SALES AND SERVICE CHANGE LEADER SHOWING AFIB, OGT INTACT. NEPRO 35ML/H,FC PATENT. IV RT AND LT UPPER ARM MID LINE.BERTA HAND WEEPING. HOB ELEVATED. WILL CONTINUE TO MONITOR VITALS.
[2020-06-01] MEDS: ATORVASTATIN 10 MG TABLET PO SCH (21:01)
[2020-06-02] VITALS (88 sets, daily range): BP systolic 73–120; BP diastolic 36–101
[2020-06-02] MEDS: BLOOD SUGAR DIAGNOSTIC 1 EACH STRIP IN SCH ×5 (00:34→23:52)
[2020-06-02] MEDS: INSULIN REGULAR, HUMAN 100 UNIT/ML 3 ML VIAL SQ PRN ×5 (00:39→23:53)
--- NOTE | 2020-06-02 01:54 | NUR ---
agriculture department chair. remaining same vent setting tolerated well
--- NOTE | 2020-06-02 04:09 | NUR ---
VETERINARY TECHNICIAN INSTRUCTOR.AM CARE. GIVEN. REMAINING SAME VENT SETTING TOLERATED WELL. SAT 98%. NO ACUTE DISTRESS NOTED. CARDIAC MONITOE SHOWING AFIB. KM 3MCG/KG/MIN, HOB ELEVATED. GT FEEDING TOLERATED WELL. WILL CONTINUE TO MONITOR VITALS.
[2020-06-02] MEDS: PHENYLEPHRINE 100 MG in IV NS 0.9% 240 ML IV PRN ×4 (04:40→21:29)
[2020-06-02] MEDS ORDERED: NOREPINEPHRINE 4 MG/4 ML AMPUL IV ONE (04:43)
[2020-06-02] MEDS: PRECEDEX 400 MCG/100 ML BOTTLE 100 ML IV PRN ×3 (04:51→17:35)
[2020-06-02] MEDS: NOREPINEPHRINE 32 MG in IV NS 0.9% 218 ML IV PRN (04:55)
[2020-06-02] MEDS: IV NS 0.9% 250 ML IV PRN (04:56)
[2020-06-02] MEDS: CEFEPIME 1 GM in IV D5W 50 ML IV SCH ×2 (05:49→17:04)
[2020-06-02] MEDS: DOXYCYCLINE HYCLATE (100 MG) 100 MG TABLET NG SCH ×2 (05:49→17:05)
[2020-06-02 06:07] LABS: BASOPHILS % (AUTO) 0.3 % (0.0-2.0); EOSINOPHILS % (AUTO) 0.6 % (0.0-6.0); HEMATOCRIT 28 % (39-51); HEMOGLOBIN 8.9 g/dL (13.5-17.5); LYMPHOCYTES # (AUTO) 0.4 /CMM (0.8-4.8); LYMPHOCYTES % (AUTO) 12.5 % (20.0-44.0); MEAN CORPUSCULAR HGB CONC 32 g/dl (31.0-36.0); MEAN CORPUSCULAR VOLUME 93 fL (80-96); MONOCYTES % (AUTO) 1.3 % (2.0-12.0); NEUTROPHILS # (AUTO) 2.7 /CMM (1.8-8.9); NEUTROPHILS % (AUTO) 85.3 % (43.0-81.0); PLATELET COUNT (AUTO) 82 /CMM (150-450); RED BLOOD CELL COUNT(AUTO) 3.01 MIL/uL (4.5-6.0); WHITE BLOOD COUNT (AUTO) 3.2 K/uL (4.3-11.0)
--- NOTE | 2020-06-02 07:00 | NUR ---
RN NOTES RECEIVED PT ON BED, INTUBATED, SEDATED, ON PRCEDEX, ON LEVO AND KM DRIP FOR BP SUPPORT, TOLERATING VENT SETTING WELL, ETT #7,LIP 23, AC 26,TV 500, FIO2 28%, PEEP 5. O2 SAT WNL, NO ACUTE DISTRESS NOTED.OLAP DEVELOPER SHOWING AFIB, HR IN 130'S, OGT INTACT. NEPRO 35ML/H,FC PATENT. IV SITES , CLEAN ,DRY AND INTACT, BERTA HAND WEEPING. HOB ELEVATED. WILL CONTINUE TO MONITOR .
[2020-06-02] MEDS: SUCRALFATE 1 G/10 ML UDC GT SCH ×3 (08:10→17:08)
[2020-06-02] MEDS: methylPREDNISolone SOD SUCC 40 MG/ML VIAL IV SCH (08:10)
[2020-06-02] MEDS: LEVOTHYROXINE SODIUM 50 MCG TABLET PO SCH (08:10)
[2020-06-02] MEDS: MULTIVITAMINS,THERAGRAN 1 UDTAB TABLET PO SCH (08:10)
[2020-06-02] MEDS: FERROUS SULFATE (325 MG) 325 MG/TAB TABLET PO SCH (08:10)
[2020-06-02] MEDS: PANTOPRAZOLE 40 MG/PACK PACK GT SCH ×2 (08:10→17:08)
[2020-06-02] MEDS: ASCORBIC ACID 500 MG TABLET PO SCH (08:10)
[2020-06-02] MEDS: CALCIUM CARB 250MG /VITAMIN D 1 UDTAB PO SCH (08:10)
[2020-06-02] MEDS: CITRIC ACID/SODIUM CITRATE (BICITRA)15 ML UDC PO SCH ×4 (08:11→20:44)
[2020-06-02] MEDS: AMIODARONE HCL 200 MG TABLET PO SCH (08:11)
[2020-06-02] MEDS: HYDROGEL DRESSING 90 GM TUBE TP SCH (08:12)
[2020-06-02] MEDS: DAKINS QUARTER STRENGTH (0.125%) 480 ML BOTTLE TOP SCH (08:12)
[2020-06-02] MEDS: NYSTATIN/TRIAMCIN CREAM 15 GM TUBE TP SCH ×2 (08:13→17:05)
[2020-06-02] MEDS: CLOTRIMAZOLE 1% 15 GM TUBE TP SCH ×2 (08:13→17:04)
[2020-06-02] MEDS: MUPIROCIN OINT 2% 22 GM TUBE NS SCH ×2 (08:14→20:45)
[2020-06-02] MEDS: POLYVINYL ALCOHOL 15 ML BOTTLE EACHEYE SCH ×2 (08:15→17:09)
[2020-06-02] MEDS: PROSOURCE / PROSTAT (PYXIS) 30 ML UDC GT SCH ×4 (08:16→20:44)
[2020-06-02 08:27] LABS: ALANINE AMINOTRANSFERASE < 6 U/L (12-78); ALKALINE PHOSPHATASE 69 U/L (46-116); ASPARTATE AMINOTRANSFERASE 22 U/L (15-37); BILIRUBIN,TOTAL 0.3 mg/dL (0.2-1.0); CALCIUM, SERUM 8.9 mg/dL (8.5-10.1); CARBON DIOXIDE 14 mmol/L (21-32); CHLORIDE 110 mmol/L (98-107); GLUCOSE 309 mg/dL (74-106); MAGNESIUM 2.2 mg/dL (1.8-2.4); POTASSIUM 4.3 mmol/L (3.5-5.1); SODIUM SERUM 144 mmol/L (136-145); TOTAL PROTEIN, SERUM 4.7 g/dL (6.4-8.2)
[2020-06-02 08:40] LABS: UREA NITROGEN, BLOOD 181 mg/dL (7-18)
[2020-06-02 08:41] LABS: ALBUMIN 0.5 g/dL (3.4-5.0); PHOSPHORUS 8.2 mg/dL (2.5-4.9)
[2020-06-02 08:52] LABS: ABG BASE EXCESS -12.8 mmol/L; ABG PCO2 28.8 mmHg (35.0-45.0); ABG PH 7.267 (7.350-7.450); ABG PO2 88.4 mmHg (75.0-100.0); AaDO2 77.3 mmHg; COHb 0.2 % (0.5-1.5); MetHb 0.2 % (0.0-1.5); O2Hb 94.6 % (94.0-97.0); PEEP,BG 5 cm H2O; SITE, ABG Right Brachial; VT, ABG 500 mL
[2020-06-02 09:26] LABS: BAND % (MANUAL) 3 % (0.0-5.0); EOSINOPHILS % (MANUAL) 1 % (0-4); LYMPHOCYTES % (MANUAL) 17 % (16-48); MONOCYTES % (MANUAL) 2 % (0-11.0); NEUTROPHILS % (MANUAL) 77 (42-76)
[2020-06-02] MEDS: NEPRO 1,000 ML BOTTLE GT PRN (15:19)
--- NOTE | 2020-06-02 18:00 | NUR ---
RN NOTES PT IS OFF LEVO AT THIS TIME , ON KM DRIP AT 3 MCG/KG/MIN, SEDATED ON PRECEDEX AT .3 MCG/KG/MIN, VSS STABLE, WILL ENDORSE TO THRESHING OPERATOR NURSE FOR CONTINUITY OF CARE.
--- NOTE | 2020-06-02 19:38 | NUR ---
RN NOTES PATIENT ON BED WITH HEAD OF BED ELEVATED. INTUBATED AND SEDATED ON PRECEDEX 0.03, ON KM FOR BP SUPPORT. TOLERATING VENT SETTINGS WELL. NO SOB OR ANY DISTRESS. TELE MONITOR ON, HR 100. OGT INTACT WITH NEPRO @35ML/HR RUNNING. WITH EAST CATH DRAINING YELLOW URINE TO GRAVITY. TEENA MIDLINES PATENT AND INTACT. WILL CONTINUE TO MONITOR.
[2020-06-02] MEDS: MICAFUNGIN SODIUM 100 MG in IV NS 0.9% 100 ML IV SCH (19:44)
[2020-06-02] MEDS: ATORVASTATIN 10 MG TABLET PO SCH (21:03)
[2020-06-03] VITALS (66 sets, daily range): BP systolic 0–187; BP diastolic 0–117
[2020-06-03] MEDS: PRECEDEX 400 MCG/100 ML BOTTLE 100 ML IV PRN ×2 (01:36→15:59)
[2020-06-03] MEDS: PHENYLEPHRINE 100 MG in IV NS 0.9% 240 ML IV PRN ×4 (01:48→14:21)
[2020-06-03] MEDS: CEFEPIME 1 GM in IV D5W 50 ML IV SCH (05:32)
[2020-06-03] MEDS: BLOOD SUGAR DIAGNOSTIC 1 EACH STRIP IN SCH ×2 (06:23→12:30)
[2020-06-03] MEDS: INSULIN REGULAR, HUMAN 100 UNIT/ML 3 ML VIAL SQ PRN ×2 (06:25→12:37)
[2020-06-03] MEDS: DOXYCYCLINE HYCLATE (100 MG) 100 MG TABLET NG SCH (06:34)
[2020-06-03] MEDS: IV NS 0.9% 250 ML IV PRN (06:45)
[2020-06-03] MEDS: LEVOTHYROXINE SODIUM 50 MCG TABLET PO SCH (07:30)
--- NOTE | 2020-06-03 07:34 | NUR ---
RN NOTES PATIENT SEDATED AND INTUBATED, TOLERATING VENT SETTINGS WELL. NO SOB OR ANY DISTRESS. ALL DUE MEDS GIVEN ORDERED. COMFORT NEEDS MET. KEPT CLEAN AND DRY. SR X3 UP, BED LOCKED AND IN LOWEST POSITION. CALL LIGHT WITHIN REACH. ENDORSED TO ONCOMING SHIFT.
--- NOTE | 2020-06-03 09:30 | NUR ---
RN NOTES PT'S DAUGHTER, LONG, AT THE BEDSIDE TO SEE THE PT.
[2020-06-03] MEDS: FERROUS SULFATE (325 MG) 325 MG/TAB TABLET PO SCH (09:37)
[2020-06-03] MEDS: CITRIC ACID/SODIUM CITRATE (BICITRA)15 ML UDC PO SCH ×2 (09:37→12:18)
[2020-06-03] MEDS: MULTIVITAMINS,THERAGRAN 1 UDTAB TABLET PO SCH (09:38)
[2020-06-03] MEDS: SUCRALFATE 1 G/10 ML UDC GT SCH ×2 (09:38→12:18)
[2020-06-03] MEDS: PANTOPRAZOLE 40 MG/PACK PACK GT SCH (09:38)
[2020-06-03] MEDS: ASCORBIC ACID 500 MG TABLET PO SCH (09:38)
[2020-06-03] MEDS: CALCIUM CARB 250MG /VITAMIN D 1 UDTAB PO SCH (09:38)
[2020-06-03] MEDS: methylPREDNISolone SOD SUCC 40 MG/ML VIAL IV SCH (09:38)
[2020-06-03] MEDS: DAPTOMYCIN 500 MG in IV NS 0.9% 50 ML IV SCH (09:39)
[2020-06-03] MEDS: AMIODARONE HCL 200 MG TABLET PO SCH (09:39)
[2020-06-03] MEDS: PROSOURCE / PROSTAT (PYXIS) 30 ML UDC GT SCH ×2 (09:41→12:18)
[2020-06-03] MEDS: HYDROGEL DRESSING 90 GM TUBE TP SCH (09:41)
[2020-06-03] MEDS: MUPIROCIN OINT 2% 22 GM TUBE NS SCH (09:41)
[2020-06-03] MEDS: POLYVINYL ALCOHOL 15 ML BOTTLE EACHEYE SCH (09:41)
[2020-06-03] MEDS: NYSTATIN/TRIAMCIN CREAM 15 GM TUBE TP SCH (09:41)
[2020-06-03] MEDS: CLOTRIMAZOLE 1% 15 GM TUBE TP SCH (09:41)
[2020-06-03] MEDS: DAKINS QUARTER STRENGTH (0.125%) 480 ML BOTTLE TOP SCH (09:41)
[2020-06-03] MEDS ORDERED: NOREPINEPHRINE 8 MG in IV NS 0.9% 242 ML IV PRN (10:30)
--- NOTE | 2020-06-03 14:30 | NUR ---
RN NOTES DR GAUTAM SPOKEN TO PT'S DAUGHTER ON THE PHONE REGARDING PT STATUS . ORDER RECEIVED FROM DR GAUTAM FOR MORPHINE DRIP AND EXTUBATION AND COMFORT CARE .
[2020-06-03] MEDS ORDERED: MORPHINE SULFATE/PF 30 MG in IV NS 0.9% 27 ML, PCA TOTAL VOLUME 1 BAG IV PRN ×3 (15:00)
[2020-06-03] MEDS ORDERED: LORAZEPAM INJ 2 MG/ML VIAL IV PRN (15:00)
[2020-06-03] MEDS ORDERED: MORPHINE SULFATE PF DRIP 250 MG in IV D5W 240 ML IV PRN (15:00)
--- NOTE | 2020-06-03 15:59 | NUR ---
RN NOTES MORPHINE 5MG IV PUSH GIVEN , MORPHINE DRIP STARTED , CONTINUE COMFORT CARE .
[2020-06-03] MEDS ORDERED: MORPHINE SULFATE INJ 2 MG/ML DISP.SYRIN IV ONE (16:00)
--- NOTE | 2020-06-03 17:30 | NUR ---
RT PER MD ORDERS PATIENT WAS COMPASSIONATELY EXTUBATED.
--- NOTE | 2020-06-03 17:30 | NUR ---
DIRECTOR ECONOMIC NOTES PATIENT EXTUBATED.
--- NOTE | 2020-06-03 17:33 | NUR ---
RN NOTES NO PULSE , NO RESPIRATION , NO BLOOD PRESSURE , PT PRONOUNCED BY TWO RNS ,
--- NOTE | 2020-06-03 17:33 | NUR ---
CRUDE UNIT OPERATOR NOTES PATIENT . DR. SARANYA MHOAMUD.
--- NOTE | 2020-06-03 17:35 | NUR ---
AUDITING CLERK NOTES CALLED [facility] [phone] AND SPOKE TO SONYA [id number] AND STATED PATIENT NOT A CANDIDATE FOR [employer]GAN DONATION.
--- NOTE | 2020-06-03 17:35 | NUR ---
SCAFFOLD ERECTOR NOTE OSMIN RN CALLED [facility] LONG AND INFORMED FAMILY OF PATIENT'S DEMISE.
--- NOTE | 2020-06-03 18:00 | NUR ---
RN NOTES PT'S DAUGHTER TOOK HIS FATHER KAR GREENWOOD HOME EARLIER , BUT FORGOT THE PENDENT . SHE WAS NOTIFIED .
--- NOTE | 2020-06-03 18:15 | NUR ---
FIRST OFFICER NOTES POST MORTEM CARE RENDERED BY JOLENE SOLORIO WITH STAFF ASSISTANCE.
== END 2020-06-03 17:33 | disposition expired | DRG 870 ==
LOC: ER 10:36 → TELE2 11:53 → ICUOV 18:41 → TELE1 05-15 09:49 → ICUOV2 05-18 13:30 → ICU 05-18 13:38
PROVIDERS: ADMIT Nurse Practitioner Acute Care; ATTEND Nurse Practitioner Acute Care
PROC: 30233N1 Transfusion of Nonautologous Red Blood Cells into Peripheral Vein, Percutaneous Approach (ICD-10-PCS; 2020-05-15)
PROC: 05H533Z Insertion of Infusion Device into Right Subclavian Vein, Percutaneous Approach (ICD-10-PCS; 2020-05-16)
PROC: B546ZZA Ultrasonography of Right Subclavian Vein, Guidance (ICD-10-PCS; 2020-05-16)
PROC: 0BH18EZ Insertion of Endotracheal Airway into Trachea, Via Natural or Artificial Opening Endoscopic (ICD-10-PCS; 2020-05-18)
PROC: 5A12012 Performance of Cardiac Output, Single, Manual (ICD-10-PCS; 2020-05-18)
PROC: 02HV33Z Insertion of Infusion Device into Superior Vena Cava, Percutaneous Approach (ICD-10-PCS; 2020-05-18)
PROC: B548ZZA Ultrasonography of Superior Vena Cava, Guidance (ICD-10-PCS; 2020-05-18)
PROC: 5A1955Z Respiratory Ventilation, Greater than 96 Consecutive Hours (ICD-10-PCS; principal; 2020-05-20)
PROC: 05H533Z Insertion of Infusion Device into Right Subclavian Vein, Percutaneous Approach (ICD-10-PCS; 2020-05-20)
PROC: B546ZZA Ultrasonography of Right Subclavian Vein, Guidance (ICD-10-PCS; 2020-05-20)
PROC: 0DJ08ZZ Inspection of Upper Intestinal Tract, Via Natural or Artificial Opening Endoscopic (ICD-10-PCS; 2020-05-25)
DX: A41.89 Other specified sepsis (principal); J69.0 Pneumonitis due to inhalation of food and vomit; J96.22 Acute and chronic respiratory failure with hypercapnia; N17.0 Acute kidney failure with tubular necrosis; G92 Toxic encephalopathy; U07.1 COVID-19; J96.21 Acute and chronic respiratory failure with hypoxia; K29.71 Gastritis, unspecified, with bleeding; K28.4 Chronic or unspecified gastrojejunal ulcer with hemorrhage; Z51.5 Encounter for palliative care; R65.21 Severe sepsis with septic shock; I50.32 Chronic diastolic (congestive) heart failure; I13.0 Hypertensive heart and chronic kidney disease with heart failure and stage 1 through stage 4 chronic kidney disease, or unspecified chronic kidney disease; D68.69 Other thrombophilia; N39.0 Urinary tract infection, site not specified; I48.19 Other persistent atrial fibrillation; L97.829 Non-pressure chronic ulcer of other part of left lower leg with unspecified severity; L97.429 Non-pressure chronic ulcer of left heel and midfoot with unspecified severity; L97.419 Non-pressure chronic ulcer of right heel and midfoot with unspecified severity; L97.319 Non-pressure chronic ulcer of right ankle with unspecified severity; E87.2 Acidosis; Z68.41 Body mass index [BMI] 40.0-44.9, adult; B49 Unspecified mycosis; N18.9 Chronic kidney disease, unspecified; J44.9 Chronic obstructive pulmonary disease, unspecified; G30.9 Alzheimer's disease, unspecified; F02.80 Dementia in other diseases classified elsewhere, unspecified severity, without behavioral disturbance, psychotic disturbance, mood disturbance, and anxiety; E66.01 Morbid (severe) obesity due to excess calories; E03.9 Hypothyroidism, unspecified; E11.22 Type 2 diabetes mellitus with diabetic chronic kidney disease; G35 Multiple sclerosis; N31.9 Neuromuscular dysfunction of bladder, unspecified; Z86.718 Personal history of other venous thrombosis and embolism; Z79.4 Long term (current) use of insulin; Z98.84 Bariatric surgery status; I46.9 Cardiac arrest, cause unspecified; E11.51 Type 2 diabetes mellitus with diabetic peripheral angiopathy without gangrene; I70.248 Atherosclerosis of native arteries of left leg with ulceration of other part of lower leg; I70.244 Atherosclerosis of native arteries of left leg with ulceration of heel and midfoot; I70.234 Atherosclerosis of native arteries of right leg with ulceration of heel and midfoot; I70.233 Atherosclerosis of native arteries of right leg with ulceration of ankle; L89.156 Pressure-induced deep tissue damage of sacral region; Z22.322 Carrier or suspected carrier of Methicillin resistant Staphylococcus aureus; K29.70 Gastritis, unspecified, without bleeding; Z95.828 Presence of other vascular implants and grafts; D64.9 Anemia, unspecified; D69.6 Thrombocytopenia, unspecified; E78.1 Pure hyperglyceridemia; E83.39 Other disorders of phosphorus metabolism; Z66 Do not resuscitate; Z74.01 Bed confinement status; Z87.891 Personal history of nicotine dependence; Z83.3 Family history of diabetes mellitus; A41.02 Sepsis due to Methicillin resistant Staphylococcus aureus; E87.5 Hyperkalemia
CPT/HCPCS: 31720; 36410; 36415; 36569; 36600; 70450-TC; 71045-TC; 71250-TC; 80048-TC; 80053-TC; 80061-TC; 80076-TC; 80202-TC; 81001; 82140-TC; 82272-TC; 82533; 82550-TC; 82803-TC; 82962-TC; 83540-TC; 83605-TC; 83735-TC; 84100-TC; 84132-TC; 84443-TC; 84478-TC; 84484-TC; 85025-TC; 85378-TC; 85730-TC; 86140-TC; 86850-TC; 87040-TC; 87070-TC; 87081-TC; 87086-TC; 87186-TC; 92526; 92611-TC; 93308-TC; 93312-TC; 94002-TC; 94003-TC; 94760-TC; 94799-TC; A4216; A6248; A6253; A6403; C9113; G0378; G0480; J0171; J0282; J0692; J0878; J1160; J1170; J1815; J2185; J2248; J2250; J2270; J2274; J2370; J2543; J2704; J2920; J3010; J3370; J3480; J3490; J7030; J7040; J7050; J7060; P9016-BL; P9047; U0003